=== PATIENT | male | born 1940 | race Caucasian/White ===

== ENCOUNTER 2017-05-11 10:17 | Outpatient (CLI) | payer MEDICARE, BC ==
[2017-05-11 12:05] LABS: #Lymphocytes 0.7 thou/uL (1.20-3.40); #Monocytes 0.3 thou/uL (0.11-0.59); #Neutrophils 3.7 thou/uL (1.40-6.50); %Basophils 0.2 % (0.0-1.0); %Lymphocytes 15.4 % (21.0-51.0); %Monocytes 6.6 % (0.0-10.0); Hematocrit 44.3 % (42.0-52.0); Mean Platelet Volume 5.5 fL (7.4-10.4); Red Blood Cell (RBC) Count 4.52 mill/uL (4.70-6.10); White Blood Cell (WBC) Count 4.8 thou/uL (4.8-10.8)
[2017-05-11 12:15] LABS: Hemoglobin A1c 6.1 % (4.0-6.0)
[2017-05-11 12:33] LABS: Anion Gap 14 mmol/L (10-20); BUN (Urea Nitrogen) 11 mg/dL (8.4-25.7); Calc. Creatinine Clearance 0 mL/min (70-130); Calcium 9.7 mg/dL (7.8-10.44); Carbon Dioxide 28 mmol/L (23-31); Chloride 100 mmol/L (98-107); Estimated GFR-MDRD Greater than 90
--- NOTE | 2017-05-12 06:15 | EKG ---
Test Reason : PREOP Blood Pressure : / mmHG Vent. Rate : 054 BPM Atrial Rate : 054 BPM P-R Int : 188 ms QRS Dur : 086 ms QT Int : 442 ms P-R-T Axes : 081 -02 024 degrees QTc Int : 419 ms Sinus bradycardia Otherwise normal ECG No previous ECGs available Confirmed by RENNY BRONSON ([id number]) on 05/12/2017 6:15:26 AM Referred By: LINDA Confirmed By:RENNY BRONSON
== END 2017-05-11 10:18 | disposition home or self-care (01) ==
LOC: LABBT 10:17
PROVIDERS: ATTEND Surgery
DX: Z01.812 Encounter for preprocedural laboratory examination (principal); C18.9 Malignant neoplasm of colon, unspecified
CPT/HCPCS: 80048; 83036; 85025; 93005; 93010

== ENCOUNTER 2017-06-21 08:40 | Outpatient (CLI) | payer MEDICARE, BC ==
--- NOTE | 2017-06-21 15:02 | PET ---
PET CT: HISTORY: 76-year-old male with lung cancer and colorectal cancer restaging. Patient is status post chemo/radi ation therapy in May 2016. TECHNIQUE: PET scanning with CT attenuation correction was performed from the base of the brain through the pro ximal thighs following the intravenous administration of 12 mCi F18-FDG in the right arm. Imaging wa s performed after an uptake interval of 49 minutes. COMPARISON: PET CT of 02/10/16. CORRELATION: CT chest, abdomen, and pelvis of 05/03/17. FINDINGS: There is hypermetabolic activity in the 3.2 x 2.0 cm right upper lobe posterior segment mass seen on the CT scan with a SUV of 6. Superior to this, within the consolidation in the posteromedial aspect of the right upper lobe, is a focal area of increased FDG localization with a SUV of 4.7. No hyperm etabolic pulmonary nodules are seen in the left lung. No jesus hypermetabolism is seen in the medias tinum, hilar regions, axilla, neck, or abdomen. No hypermetabolic liver, adrenal, or skeletal lesions are identified. There is physiologic activity in the GI and tracts, and the visualized portions of the brain. There is a 3.0 cm hypermetabolic pelvic mass arising from the sigmoid colon in the region of the blayne stomosis with a SUV of 11. There are FDG-containing perirectal lymph nodes with SUVs of 2.2 and 4.0, respectively. The CT scan used for attenuation correction demonstrates no evidence of pleural effusions or ascites . Marked prostatomegaly is again seen. IMPRESSION: 1. Hypermetabolic lesions in the right upper lung are suspicious for malignancy/metastatic disease. 2. Sigmoid colon mass is consistent with recurrence of malignancy with perirectal lymph jesus metas tasis. 3. Interval worsening has occurred since 02/10/16. POS: [facility]
== END 2017-06-21 08:41 | disposition home or self-care (01) ==
LOC: PET 08:40
PROVIDERS: ATTEND Internal Medicine Hematology & Oncology
DX: C34.91 Malignant neoplasm of unspecified part of right bronchus or lung (principal); C19 Malignant neoplasm of rectosigmoid junction; R91.1 Solitary pulmonary nodule
CPT/HCPCS: 78815; A9552

== ENCOUNTER 2017-06-22 09:45 | Day surgery (SDC) | payer MEDICARE, BC ==
[2017-06-21 13:32] VITALS: BMI 20.3
[2017-06-22] MEDS ORDERED: CEFAZOLIN/Water 2 GM/20 ML SYRINGE ONE (10:44)
[2017-06-22] MEDS ORDERED: Clindamycin/D5W 900 mg/50 ml Premix Bag ONE (11:17)
[2017-06-22] MEDS ORDERED: Levofloxacin 500 mg/D5W 100 ml Premix Bag ONE (11:18)
[2017-06-22] MEDS ORDERED: Bupivacaine/Epinephrine 0.25% 30 ML VIAL ONE (11:43)
[2017-06-22] MEDS ORDERED: Fentanyl 100 MCG/2 ML VIAL ONE (11:48)
[2017-06-22] MEDS ORDERED: Midazolam HCl 2 mg/2 ml Vial ONE (11:48)
[2017-06-22] MEDS ORDERED: Lidocaine 1% PF 5 ML VIAL ONE (12:12)
[2017-06-22] MEDS ORDERED: Propofol 200 MG/20 ML VIAL ONE (12:12)
--- NOTE | 2017-06-22 14:35 | RAD ---
PORTABLE CHEST: HISTORY: MediPort placement. FINDINGS: Heart size is within normal limits. Right-sided MediPort catheter is seen with catheter tip overlyin g the superior vena cava. There are no signs of pneumothorax on this film. Chronic lung changes are seen. IMPRESSION: Right-sided MediPort catheter with catheter tip over the superior vena cava. No signs of pneumothora x. POS: [facility]
--- NOTE | 2017-06-22 18:18 | OP ---
DATE OF SERVICE: 06/22/2017 PREOPERATIVE DIAGNOSIS: Colon cancer. POSTOPERATIVE DIAGNOSIS: Colon cancer. PROCEDURE: Tunneled central line with subcutaneous port (MediPort), CT injectable. SURGEON: Kostas Cruz M.D. ANESTHESIA: General. ESTIMATED BLOOD LOSS: Minimal. COMPLICATIONS: None. SPECIMEN: None. FINDINGS: Tip of the catheter is at the atriocaval junction. TECHNIQUE: The patient was taken to the operating room and placed supine on the table. After genera l anesthetic was obtained, bilateral neck and chest was shaved, prepped and draped in a sterile fashi on. Local anesthetic infiltrated over the right internal jugular vein. Intrajugular vein was cannul ated using a 22-gauge finder needle followed by a Seldinger needle. Wire was passed into the superio r vena cava under fluoro guidance. A small irene was made at the wire entrance site. A separate 3-cm incision was made in the right upper chest. Subcutaneous pocket made below the lower incision. Tub ing for the MediPort tunneled from the inferior to superior incision. Introducer sheath was placed o tr the wire into the superior vena cava under fluoro guidance. The dilator and wire were removed. The end of the catheter was sewn into the sheath as the sheath was peeled away. The tip of the patito ter was at the atriocaval junction. MediPort tubing was cut to fit the MediPort at the lower incisio n, connected to the MediPort. The MediPort was sewn to the chest wall in the subcutaneous pocket usi ng Prolene. The MediPort flushes and draws blood without difficulty. It was flushed with heparin fl ush. The wounds were all irrigated and closed using 3-0 Vicryl, 4-0 Monocryl, and Dermabond. The pa tient was en route to recovery in stable condition. All instrument counts, needle counts, and lap co unts were correct.
== END 2017-06-22 13:42 | disposition home or self-care (01) ==
LOC: SDC 09:45
PROVIDERS: ATTEND Surgery
PROC: 0JH63WZ Insertion of Totally Implantable Vascular Access Device into Chest Subcutaneous Tissue and Fascia, Percutaneous Approach (ICD-10-PCS; principal; 2017-06-22)
DX: C18.7 Malignant neoplasm of sigmoid colon (principal); C34.90 Malignant neoplasm of unspecified part of unspecified bronchus or lung; J45.909 Unspecified asthma, uncomplicated; I10 Essential (primary) hypertension; J44.9 Chronic obstructive pulmonary disease, unspecified; F41.9 Anxiety disorder, unspecified; Z79.899 Other long term (current) drug therapy; Z88.0 Allergy status to penicillin; Z90.49 Acquired absence of other specified parts of digestive tract; Z98.818 Other dental procedure status; Z96.1 Presence of intraocular lens; Z87.891 Personal history of nicotine dependence; Z85.46 Personal history of malignant neoplasm of prostate
CPT/HCPCS: 36561; 71010; C1788; J1642; J1956; J2001; J2250; J2704; J3010; J3490

== ENCOUNTER 2017-08-25 07:31 | Outpatient (CLI) | payer MEDICARE, BC ==
--- NOTE | 2017-08-25 13:33 | PET ---
RADIONUCLIDE PET SCAN WITH CT ATTENUATION CORRECTION AND SPECT IMAGING: HISTORY: Lung cancer. Colorectal cancer. Restaging. COMPARISON: 06/21/17. FINDINGS: Physiologic uptake of radiotracer is again demonstrated throughout the enteric system and along each urinary tract. The cavity mass at the medial aspect of the posterior medial aspect of the right uppe r lobe is again demonstrated. The maximum SUB associated with the lesion and adjacent atelectasis is now 3.9 (6.0 on the previous study). Surgical anastomosis of the colon at the sigmoid level is agai n demonstrated. No mass is now apparent. No hypermetabolic activity. No hypermetabolic pararectal lymph nodes are apparent. There is prominent calcification throughout the arterial structures. Prostate gland remains markedly enlarged. Degenerative changes of the lumbar spine are apparent. IMPRESSION: 1. Significant improvement, with decreased hypermetabolic activity associated with the right upper l obe mass and interval resolution of the abnormal uptake at the surgical anastomosis of the sigmoid co ruchi. No new hypermetabolic lesions are evident. 2. Atherosclerosis and other chronic-type findings are stable. POS: [facility]
== END 2017-08-25 07:32 | disposition home or self-care (01) ==
LOC: PET 07:31
PROVIDERS: ATTEND Internal Medicine Hematology & Oncology
DX: C34.81 Malignant neoplasm of overlapping sites of right bronchus and lung (principal); I70.90 Unspecified atherosclerosis
CPT/HCPCS: 78815; A9552

== ENCOUNTER 2017-12-15 13:48 | Outpatient (CLI) | payer MEDICARE, BC ==
--- NOTE | 2017-12-15 15:26 | PET ---
RADIONUCLIDE PET SCAN WITH CT ATTENUATION CORRECTION AND SPECT IMAGING: HISTORY: Lung cancer. Colon and prostate cancer. Restaging. COMPARISON: 08/25/17. FINDINGS: Physiologic uptake of radiotracer is again demonstrated throughout the enteric system and along each urinary tract. Necrotic mass at the posterior medial aspect of the right upper lobe again shows incre ased uptake, now with maximum SUV 6.7 (previously 3.9). Q.Clear max SUV equals 7.5. Subcarinal lymph node is not hypermetabolic. No new areas of hypermetabolic activity are apparent. Nondiagnostic CT attenuation correction images show prostate gland to be enlarged. There is calcifica tion throughout the arterial structures. Left abdominal ostomy is apparent. IMPRESSION: Interval increase in hypermetabolic activity associated with the cavitary right upper lobe mass. No n ew abnormalities are apparent. POS: [facility]
== END 2017-12-15 13:49 | disposition home or self-care (01) ==
LOC: PET 13:48
PROVIDERS: ATTEND Internal Medicine Hematology & Oncology
DX: C34.90 Malignant neoplasm of unspecified part of unspecified bronchus or lung (principal); C18.9 Malignant neoplasm of colon, unspecified
CPT/HCPCS: 78815; A9552

== ENCOUNTER 2018-01-04 08:26 | Outpatient (CLI) | payer MEDICARE, BC | END 2018-01-04 08:27 | disposition home or self-care (01) | LOC: BICRAD 08:26 | PROVIDERS: ATTEND Internal Medicine Hematology & Oncology | DX: R91.8 Other nonspecific abnormal finding of lung field (principal) | CPT/HCPCS: 71046 ==

== ENCOUNTER 2018-02-21 13:00 | Outpatient (CLI) | payer MEDICARE, BC ==
--- NOTE | 2018-02-21 15:41 | PET ---
PET CT SKULL TO MID THIGH: COMPARISON: PET CT 12/15/17. CLINICAL HISTORY: Lung cancer, restaging. There is appropriate biodistribution of radiotracer activity. FINDINGS: Redemonstration of hypermetabolic mass situated at the posteromedial right upper lobe. There remains hypermetabolic activity, with SUV up to 7.9, which is slightly higher, when comparing to prior exam. Spiculated lesion with internal air density and air bronchograms has increased in volume with axial diameter of approximately 4.3 cm compared to a similar location measuring 3.8 cm on prior exam. Kathy rounding reticulonodularity does indicate regional spread of malignancy within the right lung. No new hypermetabolic adenopathy. Incidental note of diffuse vascular disease including coronary art pradip calcium. There is granulomatous calcification. IMPRESSION: Slight size progression as well as increased SUV of the right upper lobe malignancy. No new hypermet abolic adenopathy. POS: [facility]
== END 2018-02-21 13:01 | disposition home or self-care (01) ==
LOC: PET 13:00
PROVIDERS: ATTEND Internal Medicine Hematology & Oncology
DX: C18.7 Malignant neoplasm of sigmoid colon (principal); C34.11 Malignant neoplasm of upper lobe, right bronchus or lung
CPT/HCPCS: 78815; A9552

== ENCOUNTER 2018-04-25 08:56 | Outpatient (CLI) | payer MEDICARE, BC ==
[2018-04-25] MEDS ORDERED: ISOVUE-370 76%-LOCM 1 ML ONE (09:04)
[2018-04-25 09:29] LABS: Estimated GFR-MDRD - POC Greater than 90
== END 2018-04-25 08:57 | disposition home or self-care (01) ==
LOC: BICCT 08:56
PROVIDERS: ATTEND Internal Medicine Hematology & Oncology
DX: C34.90 Malignant neoplasm of unspecified part of unspecified bronchus or lung (principal); R91.8 Other nonspecific abnormal finding of lung field
CPT/HCPCS: 71260; 82565

== ENCOUNTER 2018-07-04 11:23 | Outpatient (CLI) | payer MEDICARE, BC ==
--- NOTE | 2018-07-05 11:08 | PET ---
NUCLEAR MEDICINE FDG PET CT: (Positron Emission Tomography) DATE: 07/04/2018. HISTORY: A 77-year-old male with right upper lobe lung cancer, and colon cancer, C18.7 and C34.81. COMPARISON: 02/21/2018. TECHNIQUE: IV injection F-18 Fluorodeoxyglucose (FDG) dose: 12.3 mCi PET and attenuation-correction CT performed from skull base to proximal thighs. FINDINGS: SUV (standard uptake value) numbers given are maximum SUV's: The previously mentioned moderately large hypermetabolic pulmonary mass in the right upper lobe, broa dly abutting the posteromedial pleural surface, has become slightly larger. However, the regions of hypermetabolic activity have decreased when compared to the previous PET scan. The region of maximum QCLR SUV is 7.1 anteriorly. This is similar in value to that of the previous value of 7.5. However , now the areas outside of this region of maximum uptake have decreased in uptake compared to the aubrie or study. The apparent slight interval increase in overall volume of the lesion could represent exte nsion of the necrotic components of the tumor and/or reactive changes of lung adjacent to it. There are diffuse centrilobular emphysematous changes throughout both lungs. No hypermetabolic media stinal, hilar, or axillary lymphadenopathy. No pleural effusion. Again noted is the ostomy slightly to the left of midline in the upper abdomen. No evidence of hepatic metastases. No evidence of hyp ermetabolic lymphadenopathy in the mesenteric, cody hepatis, or retroperitoneal regions. In the upper portion of the pelvic cavity at the pelvic inlet, slightly to the left of midline, there is a new 2 x 2.5 cm soft tissue density mass, with suture line at the anastomosis site in the locati on of the sigmoid colon anastomosis. This is very hypermetabolic with QCLR SUV of 10.8. Enlarged pr ostate gland is again noted. IMPRESSION: 1. Highly suspicious for malignancy neoplastic tumor recurrence at the distal colonic anastomosis. 2. The right upper lobe pulmonary mass has similar maximum SUV at its anterior portion, but the rest of the tumor is less hypermetabolic, compared to the previous PET scan. AMEENA Acuna POS: [facility]
== END 2018-07-04 11:24 | disposition home or self-care (01) ==
LOC: PET 11:23
PROVIDERS: ATTEND Internal Medicine Hematology & Oncology
DX: C18.9 Malignant neoplasm of colon, unspecified (principal); C34.90 Malignant neoplasm of unspecified part of unspecified bronchus or lung; R91.8 Other nonspecific abnormal finding of lung field
CPT/HCPCS: 78815; A9552

== ENCOUNTER 2018-09-05 09:18 | Outpatient (CLI) | payer MEDICARE, BC ==
[2018-09-05 09:54] LABS: Estimated GFR-MDRD - POC Greater than 90
--- NOTE | 2018-09-05 12:12 | CT ---
CT ABDOMEN WITH CONTRAST: CT PELVIS WITH CONTRAST: COMPARISON: 02/17/2016 and 05/03/2017 CORRELATION: PET imaging from 07/04/[address] chest from 04/25/2018. TECHNIQUE: An abdomen and pelvis CT is performed with IV contrast. Enteric contrast is also administered. Yasmeen nal reformatted images are submitted for interpretation. FINDINGS: ABDOMEN: The lung bases are clear. The heart size is normal. No pericardial effusion. The descend ing thoracic aorta and abdominal aorta have atherosclerosis without evidence of aneurysm, dissection, or periaortic fat stranding. The gallbladder is unremarkable. The intrahepatic and extrahepatic portal vein is patent. The liver, spleen, and adrenal glands have appropriate enhancement. Symmetric enhancement of the kidneys. Bilaterally, no obstructive uropathy. No gastrohepatic, retrocrural, or periportal lymphadenopathy. No mesenteric mass, lymphadenopathy, free air, or free fluid. There is a small umbilical hernia cont aining mesenteric fat. There is a parastomal hernia in the left lower quadrant, containing mesenteri c fat. The gastric mucosa, duodenum, and multiple normal caliber small bowel loops are noted. The ileocecal junction is normal. Normal caliber appendix. The cecum, ascending colon, and transverse colon have an overall normal appearance. The descending colon appears to be decompressed. There is a blind-en ding pouch along the proximal aspect of the descending colon/distal aspect of the transverse colon, c ompatible with the patient's diverting colostomy. There is mucosal thickening at the anastomosis sit e, without evidence of adjacent lymphadenopathy or fat stranding. There is also mucosal prominence i nvolving the mid to distal portion of the rectum. PELVIS: Markedly enlarged prostate gland with mass effect upon the urinary bladder. No pelvic mass, lymphadenopathy, free air, or free fluid. No lytic or blastic lesions within the osseous structures. IMPRESSION: 1. Increased soft tissue density at the anastomosis site, compatible with area of hypometabolic acti vity noted on recent PET imaging. Currently, this lesion measures 2.6 x 3.1 cm (previously reported to be 2.7 x 2.0 cm). There is suggestion of interval increase in size. 2. Enlarged prostate gland. 3. Diverting colostomy in the left lower quadrant, as described above. POS: [facility]
[2018-09-05] MEDS ORDERED: ISOVUE-370 76%-LOCM 1 ML ONE (13:18)
== END 2018-09-05 09:19 | disposition home or self-care (01) ==
LOC: BICCT 09:18
PROVIDERS: ATTEND Internal Medicine Hematology & Oncology
DX: C18.9 Malignant neoplasm of colon, unspecified (principal); N40.0 Benign prostatic hyperplasia without lower urinary tract symptoms; Z93.3 Colostomy status
CPT/HCPCS: 74177; 82565; Q9966

== ENCOUNTER 2018-10-18 19:25 | Emergency (ER) | payer MEDICARE, BC ==
[~2018-10-18 19:25] MED LIST: ISOVUE-370 76%-LOCM 1 ML ONE
[2018-10-18 21:38] LABS: #Lymphocytes 0.6 thou/uL (1.20-3.40); #Monocytes 0.3 thou/uL (0.11-0.59); #Neutrophils 4.6 thou/uL (1.40-6.50); %Basophils 0.8 % (0.0-1.0); %Eosinophils 0.2 % (0.0-10.0); %Lymphocytes 10.6 % (21.0-51.0); %Monocytes 5.9 % (0.0-10.0); %Neutrophils 82.6 % (42.0-75.0); Hemoglobin 12.1 g/dL (14.0-18.0); Mean Corpuscular HGB CONC 32.9 g/dL (32.0-36.0); Mean Corpuscular Hemoglobin 31.6 pg (27.0-31.0); Platelet Count 265 thou/uL (130-400); RBC Distribution Width 11.5 % (11.5-14.5); Red Blood Cell (RBC) Count 3.84 mill/uL (4.70-6.10); White Blood Cell (WBC) Count 5.6 thou/uL (4.8-10.8)
--- NOTE | 2018-10-18 22:03 | RAD ---
PORTABLE AP CHEST: Date: 10/18/18 HISTORY: Shortness of breath and cough. COMPARISON: 01/04/18. FINDINGS: A right-sided MediPort catheter remains in place. The area of increased density in the right paramedi astinal location is again seen with spiculated margins and elevation of the right hilum is again pres ent. Pleural thickening right lung apex is again present. Mild increased interstitial densities at ea ch lung base, slightly greater at the left lung base on today's examination. Lungs are hyperexpanded. The cardiac silhouette and pulmonary vasculature are within normal limits. IMPRESSION: 1. Persistent mass right suprahilar region which is in a right paramediastinal location. There is el evation of the right hilar structures asymmetrically compared to the left. This is an overall stable finding. Pleural thickening right lung apex is also again stable. 2. Increased interstitial densities left lung base which could be related to infectious process. Fol low-up evaluation is recommended. POS: [facility]
[2018-10-18 22:46] LABS: BUN (Urea Nitrogen) 18 mg/dL (8.4-25.7); Calc. Creatinine Clearance 0 mL/min (70-130); Calcium 9.2 mg/dL (7.8-10.44); Carbon Dioxide 26 mmol/L (23-31); Chloride 103 mmol/L (98-107); Estimated GFR-MDRD Greater than 90; Glucose 141 mg/dL (83-110); Potassium 3.9 mmol/L (3.5-5.1); Sodium 139 mmol/L (136-145)
[2018-10-18 22:50] LABS: Anion Gap 14 mmol/L (10-20)
--- NOTE | 2018-10-18 23:31 | CT ---
CT ANGIOGRAM THORAX WITH IV CONTRAST AND 3D RECONSTRUCTIONS 10/18/18 HISTORY: Shortness of breath. History of colon and lung cancer as well as prostate cancer. COMPARISON: 04/25/18. FINDINGS: No filling defects are seen in the pulmonary arteries to suggest a pulmonary embolus. However, there is severe attenuation of right upper lobe pulmonary arteries due to the hypodense right paramediastin al mass posteromedially within the right upper lobe which measures 6.2 cm x 3.5 cm in greatest axial dimension with prior measurement of 6 cm x 3.6 cm and this is overall similar to the prior exam. Agai n, there is attenuation of the pulmonary arteries which extend through this mass as well as attenuati on of right upper lobe bronchi due to the mass. There is prominent spiculation associated with the pe riphery of the mass within the right upper lobe. Calcified granuloma in the right middle lobe is again seen. There has been interval development of patchy parenchymal densities at the left lung base in addition to reticulonodular opacities. Findings are likely related to infectious or inflammatory process. Amaury ling defects are seen in a few left lower lobe bronchi. Minimal reticulonodular densities are present in the lateral aspect of the right lower lobe, also representing an interval change from prior exam. Emphysematous changes are again seen within the lungs, greatest in the upper lobes. The thoracic aorta is normal in caliber without evidence of an aortic dissection. Vascular calcificat ions are seen in the coronary arteries and involving the thoracic aorta. A right internal jugular vein Mediport catheter remains in place. No enlarged mediastinal or hilar lymph nodes are appreciated. Partial visualization of colostomy within the left upper quadrant may potentially represent a double barrel colostomy. IMPRESSION: 1. Reticulonodular and parenchymal opacities in the left lower lobe worrisome for infectious or inflammatory process. Minimal reticulonodular densities are seen in the right lower lobe as well. 2. Filling defects in a few left lower lobe bronchi which could be related to mucous plugging. 3. Large spiculated right posterior paramediastinal mass also seen on prior exam and similar in size. This mass does attenuate right upper lobe bronchi and pulmonary arteries as these structures co urse through this mass. 4. Atherosclerotic vascular calcifications without evidence of an aortic dissection or aneurysm. 5. Trace pericardial effusion. 6. COPD. POS: [facility]
--- NOTE | 2018-10-21 10:38 | EKG ---
Test Reason : Blood Pressure : / mmHG Vent. Rate : 071 BPM Atrial Rate : 071 BPM P-R Int : 178 ms QRS Dur : 078 ms QT Int : 390 ms P-R-T Axes : 084 -23 057 degrees QTc Int : 423 ms Normal sinus rhythm Right atrial enlargement Borderline ECG Confirmed by RIA CORREA ([id number]), research editor BEKA SHAH ([id number]) on 10/21/2018 10:38:34 AM Referred By: Confirmed By:RIA CORREA
== END 2018-10-19 00:28 | disposition home or self-care (01) ==
LOC: ERS 19:25
DX: J18.9 Pneumonia, unspecified organism (principal); F41.9 Anxiety disorder, unspecified
CPT/HCPCS: 36415; 71045; 71275; 80048; 82550; 83880; 84484; 85025; 85379; 87040; 93005; 94640; 94760; J7620; Q9966

== ENCOUNTER 2018-10-22 09:46 | Inpatient (IN) | payer MEDICARE, BC ==
--- NOTE | 2018-10-22 10:35 | RAD ---
CHEST 2 VIEWS: Date: 10/22/18 HISTORY: Cough and shortness of breath. COMPARISON: 10/18/18. FINDINGS: Right central line and injection port. Poorly circumscribed mass in the medial aspect of the right up per lobe with some apical pleural thickening. Minimal patchy parenchymal change in the posterior aspe ct of the left lower lobe, evidence for some left lower lobe pneumonia and/or partial atelectasis. Mi nimal hyperinflation. IMPRESSION: Stable poorly circumscribed right medial upper lobe suprahilar mass with some apical pleural thickeni ng. Patchy parenchymal changes in the posterior left lower lobe. Stable hyperinflation. Continue shor t-term follow-up for complete clearing. POS: [facility]
[2018-10-22] MEDS ORDERED: methylPREDNISolone Sod Succ/PF 125 MG/2 ML VIAL ONE (11:08)
[2018-10-22 11:35] LABS: #Lymphocytes 0.9 thou/uL (1.20-3.40); #Monocytes 0.3 thou/uL (0.11-0.59); #Neutrophils 4.8 thou/uL (1.40-6.50); %Basophils 0.1 % (0.0-1.0); %Eosinophils 0.5 % (0.0-10.0); %Lymphocytes 14.5 % (21.0-51.0); %Monocytes 5.4 % (0.0-10.0); %Neutrophils 79.5 % (42.0-75.0); Hemoglobin 12.5 g/dL (14.0-18.0); Mean Corpuscular HGB CONC 32.8 g/dL (32.0-36.0); Mean Corpuscular Hemoglobin 31.4 pg (27.0-31.0); Mean Corpuscular Volume 95.7 fL (78.0-98.0); Mean Platelet Volume 6.2 fL (7.4-10.4); Platelet Count 319 thou/uL (130-400); RBC Distribution Width 11.4 % (11.5-14.5); Red Blood Cell (RBC) Count 3.98 mill/uL (4.70-6.10); White Blood Cell (WBC) Count 6.1 thou/uL (4.8-10.8)
[2018-10-22 12:04] LABS: ALT (SGPT) 25 U/L (8-55); AST (SGOT) 25 U/L (5-34); Albumin 3.8 g/dL (3.4-4.8); Alkaline Phosphatase 174 U/L (40-150); Anion Gap 14 mmol/L (10-20); BUN (Urea Nitrogen) 13 mg/dL (8.4-25.7); Bilirubin, Total 0.4 mg/dL (0.2-1.2); CK (CPK) 24 U/L (30-200); Calc. Creatinine Clearance 0 mL/min (70-130); Calcium 9.3 mg/dL (7.8-10.44); Carbon Dioxide 22 mmol/L (23-31); Chloride 106 mmol/L (98-107); Estimated GFR-MDRD Greater than 90; Globulin 2.7 g/dL (2.4-3.5); Glucose 117 mg/dL (83-110); Potassium 3.7 mmol/L (3.5-5.1); Protein, Total 6.5 g/dL (5.8-8.1); Sodium 138 mmol/L (136-145)
[2018-10-22 12:21] LABS: Bilirubin Negative (Negative); Blood, Urine Negative (Negative); Clarity CLEAR (Clear); Glucose, Urine (Dipstick) Negative (Negative); Leukocyte Negative (Negative); Nitrite Negative (Negative); Protein, Urine (Dipstick) Negative (Neg-Trace); Specific Gravity, Urine 1.033 (1.002-1.036); Urobilinogen 0.2 mg/dL (0.2-1.0)
[2018-10-22] MEDS ORDERED: Ondansetron PF 4 MG/2 ML Vial IVP PRN (14:56)
[2018-10-22] MEDS ORDERED: Acetaminophen 325 MG TAB PO PRN ×2 (14:56→16:56)
[2018-10-22] MEDS ORDERED: Ondansetron ODT 4 MG TAB SL PRN (14:56)
[2018-10-22 15:02] LABS: Troponin I Less than 0.010 ng/mL (< 0.028)
[2018-10-22] MEDS ORDERED: Albuterol Sulfate 2.5 mg/3 ml Neb NEB PRN (15:41)
[2018-10-22] MEDS: Sodium Chloride 0.9% 1,000 ML IV SCH (17:15)
[2018-10-22] MEDS ORDERED: Bacteriostatic Water 30 ML VIAL FS PRN (17:19)
[2018-10-22 17:55] LABS: Troponin I Less than 0.010 ng/mL (< 0.028)
[2018-10-22] MEDS: Valsartan 80 MG TAB PO SCH (20:12)
[2018-10-22] MEDS: Hydrochlorothiazide 25 MG TAB PO SCH (20:12)
[2018-10-22] MEDS: rOPINIRole HCl 0.5 MG TAB PO SCH (20:12)
[2018-10-22] MEDS: Senokot S 8.6-50 MG TAB PO SCH (20:13)
[2018-10-22] MEDS ORDERED: Hydrochlorothiazide 25 MG TAB PO SCH (21:00)
[2018-10-22] MEDS ORDERED: ALPRAZolam 0.5 MG TAB PO SCH (21:00)
[2018-10-22] MEDS ORDERED: Valsartan 80 MG TAB PO SCH (21:00)
[2018-10-22] MEDS: Montelukast Sodium 10 mg Tablet PO SCH (22:05)
[2018-10-22] MEDS: Famotidine 20 MG TAB PO SCH (22:05)
--- NOTE | 2018-10-22 23:51 | HP ---
PRIMARY CARE PHYSICIAN: Dr. Gill. CHIEF COMPLAINT: Dyspnea. HISTORY OF PRESENT ILLNESS: Mr. Rebollar is a 77-year-old male who presented to the emergency room for shortness of breath x4 days. Reports he was seen here on the , he was given a neb treatment, diagnosed with left lower pneumonia which was confirmed on a CTA scan, was given antibiotics and sent home on azithromycin. Reports that he has one left to take, but reports that he does not feel much better and reports that he was significantly short of breath this morning and he returned to the emergency room for further evaluation. He reports that he has a cough that is nonproductive. Reports that sputum will not come up with cough. Reports that he cannot take a deep breath. 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 Again, attenuation of the pulmonary arteries which extend through this mass as well as attenuation of the right upper lobe bronchi to the mass. Prominent spiculation associated with the periphery of the mass within the right upper lobe. Emphysematous changes are again seen within the lungs, greatest in the upper lobes. 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 Reports that he underwent 34 radiation treatments for his lungs prior to undergoing surgery for his colon adenocarcinoma. He reports that he was told that was gone and then had a colonoscopy in which they found an obstruction. He underwent a second surgery and on 05/18/2017, he had a laparoscopic diverting loop colostomy with Dr. Cruz and has a colostomy since that time. Reports that he did have some chemotherapy for the lung CA as he reports that Dr. Singh told him it was inoperable. He reports that they have been watching both tumors in his lung and what they suspect is some adenocarcinoma again in the colon. Reports that he has a CT scan scheduled for next month with a followup appointment with Dr. Singh. Currently, he denies any fever or chills. Reports that he does feel better after neb treatment, but it is not quite back to his baseline. Due to failure of outpatient therapy, the patient was admitted to the hospital for further management. He was given DuoNeb treatment in the emergency room and Solu-Medrol 125. Reports currently on exam that he does feel better, but reports that he felt like this on Tuesday, felt better on discharge from the emergency room, but then subsequently felt very short of breath for the last 3 days since discharge. PAST MEDICAL HISTORY: Includes small-cell lung cancer, prostate cancer, colon cancer, hypertension, restless legs syndrome, and COPD. PAST SURGICAL HISTORY: He has had a bronchoscopy, colostomy. PSYCHIATRIC HISTORY: Includes anxiety. SOCIAL HISTORY: The patient lives at home with his . He is a former tobacco user. Denies alcohol, drug use. REVIEW OF SYSTEMS: CONSTITUTIONAL: The patient denies fever or chills. EYES: Denies any eye pain or discharge. ENT: Denies any rhinorrhea or sore throat. CARDIOVASCULAR: Denies chest pain or palpitations. RESPIRATORY: Reports a dry cough. Reports shortness of breath. GI: Denies any abdominal pain. Denies nausea, vomiting, diarrhea, or constipation. : Denies any hematuria, dysuria. MUSCULOSKELETAL: Denies back pain, fall, injury, neck pain. SKIN: Denies any rash or skin changes. NEUROLOGIC: Denies any dizziness or headache. HEME/LYMPHATIC: Denies any abnormal blood clotting. PHYSICAL EXAMINATION: VITAL SIGNS: Blood pressure 151/70, pulse is 71, respirations are 18, temperature is 99.2, and pulse ox is 96% on room air. CONSTITUTIONAL: The patient appears nontoxic, is alert and oriented to person, place, and time, he is thin appearing, chronically ill appearing. HEENT: Head is atraumatic and normocephalic. The eyelids are equal to inspection. Pupils are equally round and reactive to light. ENT; mucous membranes are dry. Mouth exam is normal. NECK: No tenderness. Trachea is midline. RESPIRATORY: Decreased upper right lung wood. Decreased left lower lobe. Diffuse rhonchi. No findings of respiratory distress. CARDIOVASCULAR: Normal heart rate and rhythm. Heart sounds are normal. ABDOMEN: Nontender. No peritoneal signs. Bowel sounds are heard. BACK: Normal inspection. Normal range of motion. EXTREMITIES: Upper extremities; normal inspection. Normal range of motion. Radial pulses equal bilaterally. Lower extremities; inspection is normal. Normal range of motion. Pedal pulses are equal. Edema, trace edema noted bilaterally to lower extremities. NEUROLOGIC: The patient is alert and oriented to person, place, and time. Speech is normal. SKIN: Warm, dry, normal in color. PSYCHIATRIC: Has a normal affect. IMAGING STUDIES: EKG interpretation in the ER shows beats per minute 70, conduction is normal. Nonspecific ST changes. T-waves are normal, axis is left. PERTINENT LABORATORY DATA: Sodium 138, potassium 3.7, chloride is 106, carbon dioxide is 22, gap is 14, BUN is 13, creatinine is 0.65, estimated GFR is greater than 90, and glucose 117. Lactic acid 0.9, calcium 9.3, and bilirubin 0.4. AST and ALT are both 25, alkaline phosphatase is 174. CK is 24. Troponin x3 undetectable. Total protein 6.5, albumin 3.8, and globulin 2.7. White blood cell count is 6.1, hemoglobin is 12.5, hematocrit is 38.1, and platelet count is 319. Urine is negative. ASSESSMENT AND PLAN: 1. Left lower lobe pneumonia with continued dyspnea in the context of small cell tumor in the right upper lobe. The patient has almost one dose short of completing doses of his azithromycin. Reports he is not feeling any better. We will add Levaquin. Continue IV steroids. Add neb treatments q.6 hours. We will ask Pulmonology for further recommendations. We will continue the patient's outpatient medication, Singulair. 2. Hypertension. We will continue home medication. We will trend. 3. Depression/anxiety. We will continue home medication. 4. Gastrointestinal and deep venous thrombosis prophylaxis will be initiated. Plan was discussed with Dr. Hall, who agrees with current plan. Hospital course will be dependent on clinical findings. Job ID: [id number]
[2018-10-23 05:57] LABS: #Lymphocytes 0.8 thou/uL (1.20-3.40); #Monocytes 0.5 thou/uL (0.11-0.59); #Neutrophils 4.3 thou/uL (1.40-6.50); %Eosinophils 0.2 % (0.0-10.0); %Lymphocytes 14.7 % (21.0-51.0); %Monocytes 9.2 % (0.0-10.0); Hemoglobin 12.2 g/dL (14.0-18.0); Mean Corpuscular HGB CONC 32.7 g/dL (32.0-36.0); Mean Corpuscular Hemoglobin 31.1 pg (27.0-31.0); Mean Corpuscular Volume 95.1 fL (78.0-98.0); Mean Platelet Volume 6.2 fL (7.4-10.4); Platelet Count 315 thou/uL (130-400); RBC Distribution Width 11.3 % (11.5-14.5); Red Blood Cell (RBC) Count 3.91 mill/uL (4.70-6.10); White Blood Cell (WBC) Count 5.6 thou/uL (4.8-10.8)
[2018-10-23 06:25] LABS: ALT (SGPT) 22 U/L (8-55); AST (SGOT) 22 U/L (5-34); Albumin 3.8 g/dL (3.4-4.8); Alkaline Phosphatase 170 U/L (40-150); Anion Gap 12 mmol/L (10-20); BUN (Urea Nitrogen) 11 mg/dL (8.4-25.7); Bilirubin, Total 0.3 mg/dL (0.2-1.2); Calc. Creatinine Clearance 81 mL/min (70-130); Calcium 9.4 mg/dL (7.8-10.44); Carbon Dioxide 24 mmol/L (23-31); Chloride 102 mmol/L (98-107); Estimated GFR-MDRD Greater than 90; Globulin 2.7 g/dL (2.4-3.5); Glucose 120 mg/dL (83-110); Potassium 4.2 mmol/L (3.5-5.1); Protein, Total 6.5 g/dL (5.8-8.1); Sodium 134 mmol/L (136-145)
[2018-10-23] MEDS: Sodium Chloride 0.9% 1,000 ML IV SCH ×2 (06:44→23:08)
--- NOTE | 2018-10-23 08:55 | RAD ---
CHEST 2 VIEWS: COMPARISON: 10/22/2018. HISTORY: Cough. Shortness of breath. Pneumonia. FINDINGS: Stable right-sided MediPort catheter. Stable opacification of the medial right upper lobe. Normal c ardiac silhouette. The pulmonary vessels and hilum are normal. Costophrenic angles are clear. Hype rinflation with chronic changes. No pneumothorax or osseous abnormalities. IMPRESSION: No significant interval change. POS: [facility]
[2018-10-23] MEDS ORDERED: Prevnar 13-Val Conj/PF 0.5 ML SYRINGE IM ONE (09:00)
[2018-10-23] MEDS ORDERED: ALPRAZolam 0.5 MG TAB PO SCH (09:00)
--- NOTE | 2018-10-23 10:34 | CON ---
DATE OF CONSULTATION: 10/23/2018 TIME SPENT: This encompassed 70 minutes of time, of that time, greater than 50% spent with the patient and/or the patient's unit in the hospital. HISTORY OF PRESENT ILLNESS: I have been consulted to see Mr. Rebollar, who is a 77-year-old male and is suspected to have pneumonia. He was seen as an outpatient about one week ago and was prescribed Zithromax. Specifically, the patient tells me he just has not been feeling well. He has had no appetite. He has had very little in the way of cough or congestion. Of note, he has a recent CT of the abdomen, which showed increased activity of his colon cancer at the site of his distal anastomosis. This was also confirmed by PET scan done back in June. He reports difficulty with appetite and early satiety. PAST MEDICAL HISTORY: 1. 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 2. Colon cancer. 3. Prostate cancer. 4. Hypertension. 5. Restless legs syndrome. 6. Chronic obstructive pulmonary disease. PAST SURGICAL HISTORY: 1. Bronchoscopy. 2. Colonoscopy. 3. Colostomy. SOCIAL HISTORY: Lives at home with his . Quit smoking many years ago. Does not consume alcohol. He likes working [place] his [place]. REVIEW OF SYSTEMS: Early satiety, some weight loss. No fever or chills. Mild cough. No hemoptysis, melena, hematochezia, hematuria, or dysuria. MEDICATIONS: Prior to admission; 1. Valsartan/hydrochlorothiazide. 2. Protonix. 3. Glucosamine chondroitin complex. 4. Multivitamin. 5. Ensure Plus. 6. Iron. 7. Ropinirole. 8. Singulair. 9. Xanax. 10. Zoloft. 11. Avodart. PHYSICAL EXAMINATION: VITAL SIGNS: Temperature 97.4, pulse 77, respirations 19, O2 saturation 92%, and blood pressure 137/63. GENERAL: The patient is awake and alert, and in no distress. He is sitting up in chair. HEENT: Pupils are reactive. Sclerae icteric. Oropharynx clear. NECK: No adenopathy, JVD, or bruits. LUNGS: Fairly clear bilaterally. CARDIAC: S1 and S2 regular without murmur. ABDOMEN: Colostomy noted. EXTREMITIES: No clubbing, cyanosis, or edema. LABORATORY DATA: Sodium 134, potassium 4.2, chloride 102, CO2 of 24, BUN 11, creatinine 0.7, glucose 120, alkaline phosphatase 170. White blood cell count 5.6, hematocrit 37.2, and platelet count 315. DIAGNOSTIC DATA: I reviewed his chest x-ray, which is nonspecific. His recent CT scan showed the right upper lobe small cell cancer, which is not increased in size. He also has some left lower lobe interstitial findings that were suspected to be pneumonia. ASSESSMENT: 1. Possibility of left lower lobe pneumonia, although his symptoms are very minimal from Pulmonary standpoint. 2. Small-cell cancer of the lung. 3. Adenocarcinoma of the colon with increased uptake and tumor appearance of distal anastomotic site. 4. History of hypertension. RECOMMENDATIONS: I am not sure whether or not we are truly dealing with pneumonia. I think Levaquin coverage is sensible. I do suspect that we may be dealing with recurrent cancer and systemic symptoms from that. He may need Oncology input for that. He currently will continue to receive steroids and breathing treatments. I will notify Dr. Knox about the patient's hospitalization. Job ID: [id number]
[2018-10-23] MEDS: Senokot S 8.6-50 MG TAB PO SCH ×2 (11:06→20:05)
[2018-10-23] MEDS: Dutasteride 0.5 MG CAP PO SCH ×2 (11:07→11:08)
[2018-10-23] MEDS: Enoxaparin Sodium 40 MG/0.4 ML SYRINGE SC SCH (11:08)
[2018-10-23] MEDS: methylPREDNISolone Sod Succ 40 MG VIAL IVP SCH (11:08)
[2018-10-23] MEDS: Famotidine 20 MG TAB PO SCH ×2 (11:09→20:05)
--- NOTE | 2018-10-23 11:29 | PDOC.PN ---
- Subjective Encounter Start Date: 10/23/18 Encounter Start Time: 11:06 Subjective: Patient resting comfortable and in no distress. No CP/SOB at present. -: States he normally takes 2 tablets of Xanax daily at home. Has been getting -: less here but isnt sure of the dose he takes. Feels anxious at times and reports feeling jittery. He feels himself start to panic and hyperventilate. Has palpitations. Also suffers from restless leg syndrome which is well controlled with medications. Able to settle down with deep breaths but Xanax is most helpful. Denies any pain. Has remained afebrile. Reports completing treatment for small cell lung cancer approximately 6-8 months ago. Was seen by Dr. Singh every 1-2 months and next appointment is due in November 2018. Denies any chest pain. No sob at present. Denies any cough or hemoptysis. No n/v. No abdominal pain. Denies any urinary symptoms. No headaches or dizziness. - Objective Resuscitation Status - Order Detail: 10/22/18 16:56 Resuscitation Status Routine Co-Sign Provider: Resuscitation Status: FULL: Full Resuscitation Discussed with: Patient Additional comments: Reports his , Indigo, is his surrogate decision maker Vital Signs & Weight: Vital Signs (12 hours) Temp Pulse Resp BP Pulse Ox 10/23/18 08:30 92 L 10/23/18 07:29 97.4 F L 77 19 137/63 92 L 10/23/18 06:44 88 20 90 L 10/23/18 04:13 97.9 F 72 16 149/67 H 93 L 10/23/18 00:47 93 L 10/22/18 23:50 97.7 F 77 20 142/66 H 96 Weight Weight 140 lb 11.2 oz I&O: 10/22/18 10/23/18 10/24/18 06:59 06:59 06:59 Intake Total 1659 Output Total 1225 Balance 434 Result Diagrams: 10/23/18 05:08 10/23/18 05:08 Phys Exam - Physical Examination Constitutional: NAD HEENT: PERRLA, sclera anicteric, oral pharynx no lesions Neck: supple, full ROM Respiratory: no wheezing, no rales, no rhonchi, clear to auscultation bilateral Cardiovascular: RRR Gastrointestinal: soft, non-tender, no distention, positive bowel sounds Musculoskeletal: no edema, pulses present Neurological: normal sensation, moves all 4 limbs Psychiatric: normal affect, A&O x 3 Skin: no rash Dx/Plan (1) Colon cancer Code(s): C18.9 - MALIGNANT NEOPLASM OF COLON, UNSPECIFIED Status: Acute (2) SOB (shortness of breath) Code(s): R06.02 - SHORTNESS OF BREATH Status: Acute (3) COPD (chronic obstructive pulmonary disease) Status: Acute (4) Hypertension Code(s): I10 - ESSENTIAL (PRIMARY) HYPERTENSION Status: Acute (5) Mass of upper lobe of right lung Code(s): R91.8 - OTHER NONSPECIFIC ABNORMAL FINDING OF LUNG FIELD Status: Acute - Plan cont current plan of care, continue antibiotics Seen by Dr. Catherine, who felt symptoms likely cancer related than pneumonia -: However agreed with Levaquin coverage. -: Oncology consult advised and requested. -: CTA Chest on 10/18/18 negative for PEs. -: Xanax 0.5 mg BID requested for Anxiety which triggers episodes of SOB. Continue to monitor O2 sat. Continue nebs and steroids.
[2018-10-23 13:34] VITALS: BMI 19.1
--- NOTE | 2018-10-23 17:28 | CON ---
DATE OF CONSULTATION: REASON FOR CONSULT: Lung cancer. HISTORY OF PRESENT ILLNESS: Mr. Rebollar is a pleasant 77-year-old gentleman with past medical history of stage 4 adenocarcinoma of the colon, limited stage small cell lung cancer, and prostate cancer. He is followed in our clinic by Dr. Singh. He presented to the emergency room approximately 1 week ago with shortness of breath. He had a CT angio of his chest, which showed opacities in the left lower lobe worrisome for pneumonia. He has a known large spiculated right lung mass. It was similar in size on the CT angio versus the scan from August of 2018. He was given Z-Marino in the ER on October 18. He did not improve over the next week, so presented again to the emergency room with shortness of breath. Chest x-ray again show patchy parenchymal changes in the posterior left lower lobe. He had a dry cough and shortness of breath. He was started on steroids and given Levaquin. He does feel better today. PAST MEDICAL HISTORY: 1. Stage 4 adenocarcinoma of the colon, limited stage small cell lung cancer in 2016. 2. Hypertension. 3. COPD. 4. Anxiety. 5. GERD. PAST SURGICAL HISTORY: Hemicolectomy in 2016 and lung biopsy. ALLERGIES: TO PENICILLIN. HOME MEDICATIONS: 1. Xanax 0.5 mg daily. 2. Avodart daily. 3. Singulair daily. 4. Protonix 40 mg daily. 5. Ropinirole daily. 6. Zoloft daily. 7. Valsartan/hydrochlorothiazide daily. FAMILY HISTORY: Noncontributory. SOCIAL HISTORY: , has 2 children. No alcohol, tobacco, or illicit drug use. REVIEW OF SYSTEMS: A 10-point review of systems is negative except what is noted in HPI. PHYSICAL EXAMINATION: VITAL SIGNS: Temperature is 98.4, pulse is 74, respiratory rate is 16, BP is 148/67, and he is 94% on room air. GENERAL: This is a well-developed, well-nourished male, in no acute distress. HEENT: Normocephalic and atraumatic. Pupils are equal and reactive to light. NECK: Supple. CVS: Regular rate and rhythm. LUNGS: Diminished on the left side with wheezing. ABDOMEN: Soft and nontender. Bowel sounds are positive. EXTREMITIES: No clubbing, cyanosis, or edema. SKIN: No rash. HEMATOLOGIC: No petechiae or purpura. NEUROLOGIC: Nonfocal. PSYCH: The patient is alert, oriented, and appropriate. PERTINENT LABS AND X-RAYS: Current WBCs are 5.6, hemoglobin 12.2, hematocrit 37.2, platelet count 315,000, 76% neutrophils, and 14% lymphocytes. Sodium is 134, potassium 4.2, chloride 102, CO2 is 22, BUN is 11, creatinine 0.71, lactic acid 0.9, calcium 9.4, total bilirubin 0.3, AST is 22, ALT is 22, and alkaline phosphatase is 170. Troponin is negative. Serum total protein 6.5, albumin 3.8, and globulin 2.7. Urine is negative. Radiology per HPI. ASSESSMENT: 1. Limited stage small cell lung cancer in remission since 2015. 2. Stage 4 adenocarcinoma of the colon in April 2016. 3. Possible left lower lobe pneumonia. DISCUSSION: The patient's lung mass has been stable on scans including his most recent CT of the angio. He also likely has recurrence of his disease in his abdomen, but has been symptomatic. The patient has been on a treatment holiday. The plan is to re-stage his chest, abdomen, and pelvis in November and to decide if further treatment is needed at this time. I would treat his possible infectious process and he can follow up with us in the outpatient setting. Thanks for the consult. Job ID: [id number]
[2018-10-23] MEDS: Hydrochlorothiazide 25 MG TAB PO SCH (20:03)
[2018-10-23] MEDS: Montelukast Sodium 10 mg Tablet PO SCH (20:04)
[2018-10-23] MEDS: rOPINIRole HCl 0.5 MG TAB PO SCH (20:05)
[2018-10-23] MEDS: Valsartan 80 MG TAB PO SCH (20:05)
[2018-10-23] MEDS: ALPRAZolam 0.5 MG TAB PO SCH (20:07)
[2018-10-24 05:01] LABS: #Lymphocytes 0.8 thou/uL (1.20-3.40); #Monocytes 0.7 thou/uL (0.11-0.59); #Neutrophils 4.4 thou/uL (1.40-6.50); %Basophils 0.2 % (0.0-1.0); %Eosinophils 0.2 % (0.0-10.0); %Lymphocytes 13.8 % (21.0-51.0); %Neutrophils 74.9 % (42.0-75.0); Hemoglobin 12.1 g/dL (14.0-18.0); Mean Corpuscular HGB CONC 33.1 g/dL (32.0-36.0); Mean Corpuscular Hemoglobin 31.6 pg (27.0-31.0); Mean Corpuscular Volume 95.3 fL (78.0-98.0); Mean Platelet Volume 6.2 fL (7.4-10.4); Platelet Count 355 thou/uL (130-400); RBC Distribution Width 11.4 % (11.5-14.5); Red Blood Cell (RBC) Count 3.82 mill/uL (4.70-6.10); White Blood Cell (WBC) Count 5.9 thou/uL (4.8-10.8)
[2018-10-24 05:21] LABS: ALT (SGPT) 24 U/L (8-55); AST (SGOT) 24 U/L (5-34); Alkaline Phosphatase 158 U/L (40-150); Anion Gap 15 mmol/L (10-20); BUN (Urea Nitrogen) 13 mg/dL (8.4-25.7); Bilirubin, Total 0.4 mg/dL (0.2-1.2); Calc. Creatinine Clearance 75 mL/min (70-130); Calcium 9.6 mg/dL (7.8-10.44); Carbon Dioxide 24 mmol/L (23-31); Chloride 101 mmol/L (98-107); Estimated GFR-MDRD Greater than 90; Globulin 2.7 g/dL (2.4-3.5); Glucose 114 mg/dL (83-110); Potassium 3.4 mmol/L (3.5-5.1); Protein, Total 6.7 g/dL (5.8-8.1); Sodium 137 mmol/L (136-145)
[2018-10-24 08:11] VITALS: BP 158/68; TEMP 97.7
[2018-10-24] MEDS: ALPRAZolam 0.5 MG TAB PO SCH (08:51)
[2018-10-24] MEDS: Senokot S 8.6-50 MG TAB PO SCH (08:51)
[2018-10-24] MEDS: Famotidine 20 MG TAB PO SCH (08:51)
[2018-10-24] MEDS: Enoxaparin Sodium 40 MG/0.4 ML SYRINGE SC SCH (08:59)
[2018-10-24] MEDS: methylPREDNISolone Sod Succ 40 MG VIAL IVP SCH (08:59)
--- NOTE | 2018-10-24 10:02 | PRG ---
DATE OF SERVICE: 10/24/2018 SUBJECTIVE: Efraín Rebollar, this morning, is feeling better. He came to the hospital because he felt he had left-sided pneumonia. X-ray did not show an obvious pneumonia. This morning, he said he is feeling better. Denies any pain or discomfort. OBJECTIVE: VITAL SIGNS: Sats are 99% on room air, temperature 97, pulse 73, respiratory rate 20, and blood pressure is 150/68. CHEST: Decreased breath sounds. No wheezing. CARDIAC: Normal S1 and S2. No gallop. ABDOMEN: No masses. LABORATORY DATA: White count 5000, H and H are 12 and 36. Lytes are normal. IMPRESSION: 1. Possibly bronchitis pneumonia. 2. Small cell cancer. 3. Colon cancer. PLAN: He is eager to go home on present treatment. He is to follow up with Dr. Knox on an outpatient basis. Job ID: [id number]
--- NOTE | 2018-10-25 07:13 | DIS ---
DATE OF ADMISSION: 10/22/2018 DATE OF DISCHARGE: 10/24/2018 CHIEF COMPLAINT: Shortness of breath. DISCHARGE DIAGNOSES: 1. Left lower lung pneumonia. 2. Small cell lung cancer. 3. Colon cancer. 4. Hypertension. 5. Anxiety. 6. Chronic obstructive pulmonary disease. 7. Gastroesophageal reflux disease. CONSULTING PHYSICIANS: 1. Dr. Catherine, Pulmonology. 2. Dr. Valdez, Oncology. HOSPITAL COURSE: Mr. Rebollar is a very pleasant 77-year-old man, who presented with shortness of breath. He underwent investigations in the ED including a chest x-ray, which demonstrated no acute changes. He is known to have small cell lung cancer; therefore, Pulmonology was consulted as it was felt his difficulty breathing was associated with his cancer. He did undergo a CT angiogram of the chest, which showed reticulonodular and parenchymal opacities in the left lower lobe, worrisome for infectious versus inflammatory process. Similar changes were seen in the right lower lobe. There are few filling defects in the left lower lobe bronchi, felt to be related to mucous plugging. The patient was noted to have a large spiculated right posterior paramediastinal mass that had been seen on previous studies and with no significant change in size. He did not seem to have any definite evidence of pulmonary embolism. There was trace pericardial effusion seen as well as changes consistent with his history of COPD. He was evaluated by Dr. Catherine, who felt his symptoms were more likely associated with his cancer rather than any underlying pneumonia or infectious pulmonary process; however, he did agree with antibiotic coverage. He had been started on Levaquin, which he continued throughout his hospital stay as well as steroids. The patient's initial saturations were in the 90% to 93% range, and on day of discharge, it has improved to 99% on room air. The patient has symptomatically improved significantly on current treatment. An oncology consult was placed and he was evaluated with no further recommendations. The patient is scheduled for a restaging imaging in November 2018 and was advised to keep current appointment with no indication to move his imaging nor followup sooner. The patient continued to do well during his hospital stay and tolerating oral intake and without any other complaints. REVIEW OF SYSTEMS: The patient denies having any chest pain, palpitations, or shortness of breath. His symptoms have fully resolved. He denies having any headaches or dizziness. No cough or hemoptysis. Denies having any abdominal pain or cramping. Tolerating oral intake. No constipation, diarrhea, melena, or bright red blood per rectum. No urinary symptoms. He has been afebrile. No night sweats. All other review of systems are negative. PHYSICAL EXAMINATION: GENERAL: The patient appears well developed, well nourished, and is in no acute distress. He was found sat upright in a chair. He appears comfortable. VITAL SIGNS: Temperature 97.7, pulse 73, respirations 20, O2 saturation 99% on room air, and blood pressure 158/68. HEENT: Normocephalic and atraumatic. Pupils are equal, round, and reactive to light. Sclerae are without icterus. Oropharynx is clear. NECK: Supple without lymphadenopathy. LUNGS: Clear to auscultation bilaterally without any wheezes, rales, or rhonchi. CARDIAC: Regular rate and rhythm without audible murmurs, rubs, or gallops. ABDOMEN: Soft, nontender, and nondistended. Normoactive bowel sounds present. EXTREMITIES: No clubbing, cyanosis, or edema. NEUROLOGIC: Alert and oriented x3. SKIN: Without rash or jaundice. LABORATORY DATA: White blood count 5.9, hemoglobin 12.1, hematocrit 36.4, and platelets 355. Sodium 137, potassium 3.4, chloride 101, BUN 13, creatinine 0.77, GFR greater than 90, and glucose 114. Lactic acid on initial presentation 0.9. LFTs unremarkable. Alkaline phosphatase 158. Troponins on initial presentation were negative x3. Urinalysis unremarkable. IMAGING DATA: As mentioned above in hospital course. DISCHARGE MEDICATIONS: The patient was advised to resume his regular home medications. 1. He was given a prescription for Levaquin 750 mg p.o. daily x7 days. 2. He was given a new prescription for prednisone 40 mg p.o. daily x5 days. CONDITION: Stable. DIET: Heart healthy. ACTIVITY: As tolerated. FOLLOWUP: 1. The patient will follow up with his oncologist, Dr. Singh, in November with restaging studies as scheduled. 2. The patient will follow up with Dr. Knox, his regular welt drawer. 3. The patient advised to follow up with his primary care physician within 1 week to ensure he continues to be doing well and for repeat laboratory studies including potassium which was slightly decreased today, but normal throughout his stay. DISPOSITION: The patient cleared for discharge home today on October 24, 2017. The patient's case was discussed with Dr. Wooten, who agrees with the plan of care as described above. Job ID: [id number]
== END 2018-10-24 10:40 | disposition home or self-care (01) | DRG 194 ==
LOC: ERS 09:46 → 2SW 14:01 → OBSVTOIN 17:14
PROVIDERS: ADMIT Family Medicine; ATTEND Family Medicine
DX: J18.1 Lobar pneumonia, unspecified organism (principal); C34.90 Malignant neoplasm of unspecified part of unspecified bronchus or lung; C18.9 Malignant neoplasm of colon, unspecified; J44.9 Chronic obstructive pulmonary disease, unspecified; I10 Essential (primary) hypertension; G25.81 Restless legs syndrome; F32.9 Major depressive disorder, single episode, unspecified; F41.9 Anxiety disorder, unspecified; K21.9 Gastro-esophageal reflux disease without esophagitis; Z85.038 Personal history of other malignant neoplasm of large intestine; Z92.3 Personal history of irradiation; Z85.46 Personal history of malignant neoplasm of prostate; Z92.21 Personal history of antineoplastic chemotherapy; Z87.891 Personal history of nicotine dependence; Z93.3 Colostomy status
CPT/HCPCS: 36415; 71045; 71046; 71275; 80048; 80053; 81003; 82550; 83605; 83880; 84484; 85025; 85379; 87040; 93005; 94640; 94760; 96361; 96374; J1642; J1650; J2920; J2930; J7620; Q9966

== ENCOUNTER 2018-11-15 09:31 | Outpatient (CLI) | payer MEDICARE, BC ==
--- NOTE | 2018-11-15 10:23 | CT ---
EXAM: CT Chest Abd Pelvis W Con PROVIDED CLINICAL HISTORY: Colon cancer COMPARISON: CT angiogram chest 10/18/2018 CT abdomen and pelvis 08/28/2018 FINDINGS: The heart, pericardium and great vessels demonstrate a stable CT appearance. Vascular calcification i ncluding coronary calcium is redemonstrated. Irregular heterogeneously hypodense mass involving the posterior medial aspect of the right lung apex is redemonstrated. This measures approximately 6.8 x 3.8 cm in greatest transverse dimensions (as co mpared to 6.2 x 3.5 cm on the 10/18/2018 study). There is persistent but improving reticulonodular opa city involving the basilar aspects of the left lower lobe. Emphysematous changes are redemonstrated. No pleural fluid or pneumothorax apparent. Attenuation of t he apical right upper lobe bronchus is redemonstrated. The airway appears otherwise patent and of nor mal caliber. The liver, spleen, pancreas, kidneys and adrenal glands demonstrate an unremarkable CT appearance. There is no bowel dilatation, inflammatory fat stranding, free fluid or lymph node enlargement appare nt. Changes of colostomy in the left upper quadrant are redemonstrated. Soft tissue mass in the regio n of the rectocolonic anastomosis is redemonstrated, measuring approximately 3.1 x 3.1 cm in greatest transverse dimensions (as compared with 2.6 x 3.1 cm on the 09/05/2018 study). Marked prostate enlargement is redemonstrated. The osseous structures demonstrate no concerning osteo blastic or osteolytic lesions. IMPRESSION: 1. Interval increase in size of spiculated right upper lobe mass. 2. Equivocal interval increase in size of rectocolonic anastomosis mass. 3. Interval improvement in reticulonodular opacity involving the left lower lobe suggesting resolving pneumonia.
== END 2018-11-15 09:32 | disposition home or self-care (01) ==
LOC: BICCT 09:31
PROVIDERS: ATTEND Internal Medicine Hematology & Oncology
DX: C34.81 Malignant neoplasm of overlapping sites of right bronchus and lung (principal); C18.7 Malignant neoplasm of sigmoid colon; E61.1 Iron deficiency; R91.8 Other nonspecific abnormal finding of lung field
CPT/HCPCS: 71260; 74177

== ENCOUNTER 2019-01-16 09:25 | Outpatient (CLI) | payer MEDICARE, BC ==
[2019-01-16 10:21] LABS: Estimated GFR-MDRD - POC Greater than 90
--- NOTE | 2019-01-16 11:25 | CT ---
CT OF CHEST AND ABDOMEN AND PELVIS PERFORMED WITH IV CONTRAST ENHANCEMENT: Date: 01/16/19 HISTORY: Patient with history of right lung cancer and malignant neoplasm of sigmoid colon. Follow-up examinat ion. COMPARISON: 11/15/17 study. FINDINGS: Severe COPD changes are seen with prominent air trapping. The left lower lobe reticulonodular opaciti es have almost completely resolved since the prior examination. The right upper lobe paravertebral soft tissue mass is unchanged in size, measuring at the same level as the previous study. Measurements of 3.4 x 7.1 cm are obtained as compared to 3.9 x 6.8 cm. There appears to be a fairly prominent necrotic component to these soft tissue changes, particularly along the inferior aspect. No pleural effusions are identified. No significant mediastinal or hilar lymphad enopathy is appreciated. Coronal artery calcifications are noted. Thyroid gland appears unremarkable. No axillary adenopathy. CT of abdomen was performed with contrast enhancement. The liver and spleen show no focal abnormaliti es. Pancreas and gallbladder regions are unremarkable. Right and left adrenal glands, and right and left kidneys are normal in size. No significant periaort ic or mesenteric adenopathy. Left upper quadrant colostomy is again demonstrated. This appears to be a double barrel colostomy. CT of pelvis was performed with contrast enhancement. The soft tissue density associated with the rec tosigmoid anastomosis appears unchanged with soft tissue mass measuring 3.2 cm in diameter, which is a stable finding. Once again, the prostate is noted to be markedly enlarged. Review of osseous structures show no lytic or blastic bony changes. IMPRESSION: 1. Stable appearance to the right upper lobe paravertebral soft tissue mass and the soft tissue dens ity seen near the rectosigmoid anastomosis. 2. Interval clearing of the left lower lobe reticulonodular opacities. POS: T[facility]
== END 2019-01-16 09:26 | disposition home or self-care (01) ==
LOC: BICCT 09:25
PROVIDERS: ATTEND Internal Medicine Hematology & Oncology
DX: C34.81 Malignant neoplasm of overlapping sites of right bronchus and lung (principal); C18.7 Malignant neoplasm of sigmoid colon; K63.89 Other specified diseases of intestine; R91.8 Other nonspecific abnormal finding of lung field; R93.5 Abnormal findings on diagnostic imaging of other abdominal regions, including retroperitoneum
CPT/HCPCS: 71260; 74177; 82565

== ENCOUNTER 2019-03-28 09:20 | Outpatient (CLI) | payer MEDICARE, BC ==
[2019-03-28 09:52] LABS: Estimated GFR-MDRD - POC Greater than 90
--- NOTE | 2019-03-28 11:53 | CT ---
EXAM: Chest, Abdomen and Pelvic CT scan with contrast: HISTORY: Right lung malignancy. Sigmoid colon cancer. COMPARISON: 01/16/2019. FINDINGS: Redemonstration of necrotic, lobular right upper lobe mass located posterior medially, with AP diamet er at 7.5 cm, and transverse diameter at 3.7 cm. This is slightly increased in volume when comparing to similar location on the prior scan. There is adjacent interstitial opacity with minute n odularity of the right lung. No pleural effusion. No pneumothorax. No adenopathy. Scattered vascular disease including coronary artery calcium. There is a right venous chest port. Liver: Size progression of a metastatic lesion involving the hepatic dome, 1.7 cm. Gallbladder:Unremarkable. Pancreas:Unremarkable Spleen:Granulomatous calcification. Adrenal glands:Unremarkable. Kidneys:No renal calculus or acute obstruction.No solid or cystic mass. Bowel: Redemonstration of soft tissue mass of the pelvis, to left of midline adjacent to the unopacif ied sigmoid colon with internal, stippled hyperdensity. Where previously measured at 3.2 cm, this again measures 3.2 cm, stable. Urinary Bladder: The urinary bladder is unremarkable. There is marked enlargement of the prostate gland, similar appearing. Adenopathy:No adenopathy within the abdomen or pelvis. Free Air: No free air. Ascites: No ascites. Osseous structures: No acute osseous abnormalities. IMPRESSION: 1. Interval size increase of right upper lobe necrotic malignancy. 2. Progression of hepatic metastatic disease. 3. Stable size soft tissue mass of the pelvis, adjacent to the sigmoid colon. Transcribed Date/Time: 03/28/2019 12:12 PM
[2019-03-28] MEDS ORDERED: ISOVUE-370 76%-LOCM 1 ML ONE (13:55)
== END 2019-03-28 09:21 | disposition home or self-care (01) ==
LOC: BICCT 09:20
PROVIDERS: ATTEND Internal Medicine Hematology & Oncology
DX: C18.7 Malignant neoplasm of sigmoid colon (principal); C34.81 Malignant neoplasm of overlapping sites of right bronchus and lung; E61.1 Iron deficiency; R11.0 Nausea; C78.7 Secondary malignant neoplasm of liver and intrahepatic bile duct; R19.00 Intra-abdominal and pelvic swelling, mass and lump, unspecified site
CPT/HCPCS: 36415; 71260; 74177; 80053; 85025; Q9966

== ENCOUNTER 2019-06-20 08:48 | Outpatient (CLI) | payer MEDICARE, BC ==
--- NOTE | 2019-06-20 10:30 | CT ---
CT of the chest, abdomen, and pelvis: 06/20/2019 COMPARISON: 03/28/2019, 01/16/2019 HISTORY: Colon cancer TECHNIQUE: Axial CT imaging at 5 mm intervals from the thoracic inlet through the pubic symphysis wit h IV contrast/oral contrast. Coronal and sagittal reformatted imaging obtained FINDINGS: There is a right Port-A-Cath, distal tip in region of distal SVC. No axillary lymphadenopathy. No hilar or mediastinal lymphadenopathy is evident. There is a lobulated irregular hypodense/necrotic soft tissue mass on the right within the posterior medial aspect of the right upper lobe abutting the right lateral aspect of the T2-T5 vertebral bodies. The inferior aspect of this abnormality abuts the superior margin of the right mainstem bronc hus. Bronchi supplying the right upper lobe extending into this region and are irregularly marginated and narrowed. This abnormality measures approximately 6.7 cm in AP dimension and 3.3 cm in transverse dimension. This has decreased in size when compared to most recent prior exam at which time it measured approximately 7.6 cm AP dimension and 4.1 cm transverse dimension. Along the anterio r aspect of this abnormality is a spiculated mass, best seen on axial image 17, which measured 1.7 cm AP dimension, measuring 2.6 cm on the 03/28/2019 exam. No pneumothorax is evident on either side. There are severe emphysematous changes noted bilaterally with an upper lobe predominance. Right middle lobe granuloma noted on axial image 36. There has been interval development of nonspecific epidural gas within the upper thoracic spine, mid thoracic spine, and lower thoracic spine. No epidural gas is noted within the lumbar region. There is scattered atherosclerotic calcification of the thoracic aorta, the coronary arterial structu res, and the proximal great vessels. The osseous structures of the chest demonstrate no worrisome lytic or blastic lesions. No free intraperitoneal air or fluid is noted. There is a subtle hypodense lesion within the superior aspect of the right lobe of the liver which me asures approximately 1.3 cm in transverse dimension, decreased from 1.6 cm on the 03/28/2019 examination and similar in size when compared to 01/16/2019 examination. No new or additional hepatic lesion is appreciated. The spleen, gallbladder, pancreas, adrenal glands , and kidneys demonstrate no acute findings. The prostate gland is markedly enlarged heterogeneous and lobulated, herniating into the region of th e urinary bladder base. There is a sigmoid colonic suture line present. There is a colostomy in the midline upper abdomen. No evidence for bowel obstruction is appreciated. There is a vague soft tissue mass at the anastomotic site within the deep posterior pelvis which measures 1.7 cm in transverse dimension. This lesion has decreased in size when compared to the most recent prior exam at which time it measured 3.2 cm in transverse dimension. There is a vague/ill-defined soft tissue density just to the left of the distal abdominal aorta on axial image 96 measuring approximately 9 mm in AP dimension, suggesting an abnormal node, decreased in size when compared to the prior study at which time it mary ured 1.2 cm. On the prior examination there was a vague soft tissue mass on axial image 102 within the left hemipelvis adjacent to the anastomosis which is not discretely visualized on this examinatio n. Review of the osseous structures of the abdomen/pelvis demonstrate no discrete worrisome lytic or yossi stic bone lesions. IMPRESSION: Findings indicating interval response to therapy with interval decrease in size of the so ft tissue mass in the posteromedial right upper lobe region. In addition, the hepatic lesion near the dome on the right has decreased in size and soft tissue masses within the pelvis have significant ly decreased in size. Of note, there has been interval development of nonspecific epidural gas within the thoracic region. Question a history of recent injection. CODE T This case was discussed with Dr. Singh at 10:25 AM 06/20/2019
[2019-06-20] MEDS ORDERED: Iopamidol 370 76% 100 ML VIAL ONE (13:50)
== END 2019-06-20 08:49 | disposition home or self-care (01) ==
LOC: CT 08:48
PROVIDERS: ATTEND Internal Medicine Hematology & Oncology
DX: C34.81 Malignant neoplasm of overlapping sites of right bronchus and lung (principal); C18.7 Malignant neoplasm of sigmoid colon; E61.1 Iron deficiency
CPT/HCPCS: 36415; 71260; 74177; 82565; Q9967

== ENCOUNTER 2019-09-28 09:08 | Inpatient (IN) | payer MEDICARE, BC ==
[2019-09-28] MEDS ORDERED: Acetaminophen 500 MG TAB ONE (09:33)
[2019-09-28 09:57] LABS: #Basophils 0.1 thou/uL (0.0-0.2); #Lymphocytes 0.1 thou/uL (1.20-3.40); #Monocytes 0.2 thou/uL (0.11-0.59); #Neutrophils 4.7 thou/uL (1.40-6.50); %Basophils 1.8 % (0.0-1.0); %Eosinophils 0.3 % (0.0-10.0); %Lymphocytes 2.4 % (21.0-51.0); %Monocytes 4.1 % (0.0-10.0); %Neutrophils 91.5 % (42.0-75.0); Hemoglobin 8.5 g/dL (14.0-18.0); Mean Corpuscular HGB CONC 32.4 g/dL (32.0-36.0); Mean Corpuscular Hemoglobin 30.1 pg (27.0-31.0); Mean Corpuscular Volume 92.9 fL (78.0-98.0); Mean Platelet Volume 6.9 fL (7.4-10.4); Platelet Count 335 thou/uL (130-400); RBC Distribution Width 14.7 % (11.5-14.5); Red Blood Cell (RBC) Count 2.84 mill/uL (4.70-6.10); White Blood Cell (WBC) Count 5.2 thou/uL (4.8-10.8)
[2019-09-28] MEDS ORDERED: Cefepime 2 GM VIAL ONE (09:58)
[2019-09-28 10:03] LABS: INR-International Normal Ratio 1.1; PTT 29.5 SEC (22.9-36.1); Prothrombin Time 14.5 SEC (12.0-14.7)
--- NOTE | 2019-09-28 10:03 | RAD ---
Exam: Chest one view HISTORY:Cough. Low-grade fever. Patient is status post chemotherapy. Comparison: 10/18/2018 FINDINGS: Cardiac silhouette: Normal Aorta: Unremarkable Pulmonary vessels: Normal Costophrenic angles: There Lines and tubes: Stable right-sided Mediport catheter LUNGS: Interstitial and alveolar opacities in the right upper lobe may represent malignancy versus pn eumonia. Pneumothorax: None Osseous abnormalities: None IMPRESSION: 1. Focal opacity in the right upper lobe which may represent malignancy versus pneumonia. Continued s urveillance is recommended.
[2019-09-28 10:21] LABS: ALT (SGPT) 10 U/L (8-55); AST (SGOT) 12 U/L (5-34); Albumin 3.1 g/dL (3.4-4.8); Alkaline Phosphatase 250 U/L (40-110); Anion Gap 15 mmol/L (10-20); BUN (Urea Nitrogen) 10 mg/dL (8.4-25.7); Bilirubin, Total 0.5 mg/dL (0.2-1.2); CK (CPK) 83 U/L (30-200); Calc. Creatinine Clearance 0 mL/min (70-130); Calcium 9.1 mg/dL (7.8-10.44); Carbon Dioxide 27 mmol/L (23-31); Chloride 97 mmol/L (98-107); Estimated GFR-MDRD Greater than 90; Globulin 3.4 g/dL (2.4-3.5); Glucose 139 mg/dL (83-110); Lipase 13 U/L (8-78); Magnesium 2.1 mg/dL (1.6-2.6); Potassium 4.2 mmol/L (3.5-5.1); Protein, Total 6.5 g/dL (5.8-8.1); Sodium 135 mmol/L (136-145)
[2019-09-28 10:31] LABS: Bilirubin Negative (Negative); Blood, Urine Negative (Negative); Clarity Clear (Clear); Glucose, Urine (Dipstick) Normal (Negative); Leukocyte Negative Leu/uL (Negative); Nitrite Negative (Negative); Protein, Urine (Dipstick) 20 mg/dL (Neg-Trace); Urobilinogen Normal mg/dL (Less than 2)
[2019-09-28 10:42] LABS: CKMB 0.4 ng/mL (0-6.6)
[2019-09-28] MEDS ORDERED: Iopamidol 370 76% 50 ML VIAL FS ONE (11:04)
[2019-09-28] MEDS ORDERED: Iopamidol 370 76% 100 ML VIAL ONE (11:04)
--- NOTE | 2019-09-28 12:16 | CT ---
EXAM: CT chest, abdomen, and pelvis with IV contrast: HISTORY: Fever, history of cancer. Patient currently on chemotherapy. Injury after fall. COMPARISON: 06/10/2019 FINDINGS: CT THORAX: Lungs: There is what appears to be necrosis in the region of the previously seen right suprahilar/hil ar mass at the posteromedial aspect of the right upper lung zone. However, there has been interval development of increased parenchymal density and consolidation in the right upper lobe with a cavitar y lesion seen in the right upper lobe/right lung apex measuring 6.5 cm transverse x5.7 cm AP with air-fluid level. In the areas of consolidation, there is decreased attenuation and multifocal areas of gas density present. There is area of cavitation seen within the previously described mass in the left suprahilar/perihilar region. There is occlusion of a right upper lobe bronchus. There are patchy parenchymal densities seen within the right lower lobe which could be related to pos tobstructive pneumonitis. Lymphangitic spread of tumor is a possibility. There are reticulonodular densities in the left lung base suggestive of infectious or inflammatory pr ocess. Pleura: No pleural effusion. Lymph nodes: Nonspecific and nonenlarged right hilar lymph nodes are identified. Mediastinum: Vascular calcifications are seen in the thoracic aorta and involving the coronary arteri es. Tiny pericardial effusion is present. A right internal jugular vein Mediport catheter is again noted in place. Chest wall: No abnormalities CT ABDOMEN AND PELVIS: Liver: A stable 1.1 cm hypodense lesion is seen in the dome of the liver. Gallbladder: Mildly distended.\ Pancreas: Within normal limits. Spleen:Splenic granuloma is present. Adrenal glands: Within normal limits. Kidneys: Normal left hydronephrosis is present. Exact etiology is uncertain. Urinary Bladder: Distended. There is mass effect on the urinary bladder secondary to an enlarged and heterogeneous prostate gland also seen on prior study. Prostate gland measures 7.3 cm in transverse dimensions. Bowel: Colostomy is again seen in the epigastric region. There is anastomosis seen in the region of t he sigmoid colon. Loops of small bowel are normal in caliber. Suggested soft tissue density masslike structure adjacent to the sigmoid anastomosis is again seen me asuring 1.7 cm. This could be related to postsurgical changes in this region as opposed to an enlarged lymph node. However, this is an overall stable finding compared to prior exam. Adenopathy:No lymphadenopathy within the abdomen or pelvis. Peritoneum: Trace amount of free fluid is seen in the lower pelvis. Abdominal wall: Tiny fat-containing umbilical hernia is again identified. Osseous structures: There are a few stable sclerotic densities again seen in the left iliac bone unch anged compared to prior study in 2017 suggesting nonaggressive lesions. There is a new subcentimeter sclerotic density in the left iliac bone near the level of the iliac crest which is not definitively seen on prior exam. However, due to very small size, this is difficult to characterize and could represent a suspicious sclerotic lesion versus a bone island. IMPRESSION: 1. Areas of cavitation in the previously seen mass medial aspect right hilar/perihilar region. There is now adjacent area of heterogeneity and consolidation with several gas densities seen. Findings may be related to post obstructive infectious process or progression in neoplastic process. There is a larger cavitary lesion in the right upper lobe with air-fluid level which may be related to infectious process or progression in neoplastic process. 2. Reticulonodular densities left lung base which may be related to infectious or inflammatory proces s. 3. Stable hypodense presumed metastatic lesion in the dome of the liver. 4. Additional findings as described above.
[2019-09-28] MEDS ORDERED: Ondansetron PF 4 MG/2 ML Vial IVP PRN (13:13)
[2019-09-28] MEDS ORDERED: HYDROcodone/Acetaminophen 10/325 mg Tablet PO PRN (16:25)
[2019-09-28] MEDS: HYDROcodone/Acetaminophen 10/325 mg Tablet PO PRN (16:38)
--- NOTE | 2019-09-28 19:16 | PDOC.HHP ---
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 He presented to the emergency department with complaints of worsening generalized weakness and cough for 1 week. The patient stated that his cough is productive of brownish phlegm. He has been short of breath but denies chest pain, fever, chills, nausea or vomiting. In the ER, a fever of 102 was documented along with tachypnea and tachycardia suggesting presence of sepsis. Hospitalist ROS - Review of Systems All other systems reviewed; all pertinent +/- noted in HPI/Subj - Medication Medications: Active Medications Generic Name Dose Route Start Last Admin Trade Name Freq PRN Reason Stop Dose Admin Hydrocodone Bitart/Acetaminophen 2 tab 09/28/19 16:25 09/28/19 16:38 [place] 10/325 PO 2 tab Q4H PRN Administration PAIN SCALE 7-10 Hospitalist History - Past Medical History Cardiac: reports: HTN Other Medical History: Small cell lung cancer. Colon cancer with metastasis to the liver - Past Surgical History Other Surgical History: Partial colectomy with colostomy - Social History Smoking Status: Never smoker Alcohol: reports: None Drugs: reports: none - Exam General Appearance: ill appearing Eye: anicteric sclera ENT: normocephalic atraumatic, no oropharyngeal lesions Neck: supple, no JVD Heart: RRR, no murmur, no gallops, no rubs Respiratory: normal chest expansion, tachypneic Gastrointestinal: soft, non-tender, non-distended, normal bowel sounds Neurological: cranial nerve grossly intact, no focal deficits Hospitalist Results - Labs Result Diagrams: 09/28/19 09:40 09/28/19 09:40 Lab results: WBC 5.2 thou/uL (4.8-10.8) 09/28/19 09:40 Hgb 8.5 g/dL (14.0-18.0) L 09/28/19 09:40 Hct 26.4 % (42.0-52.0) L 09/28/19 09:40 MCV 92.9 fL (78.0-98.0) 09/28/19 09:40 Plt Count 335 thou/uL (130-400) 09/28/19 09:40 Neutrophils % 91.5 % (42.0-75.0) H 09/28/19 09:40 Sodium 135 mmol/L (136-145) L 09/28/19 09:40 Potassium 4.2 mmol/L (3.5-5.1) 09/28/19 09:40 Chloride 97 mmol/L (98-107) L 09/28/19 09:40 Carbon Dioxide 27 mmol/L (23-31) 09/28/19 09:40 BUN 10 mg/dL (8.4-25.7) 09/28/19 09:40 Creatinine 0.64 mg/dL (0.7-1.3) L 09/28/19 09:40 Glucose 139 mg/dL (83-110) H 09/28/19 09:40 Lactic Acid 1.9 mmol/L (0.5-2.2) 09/28/19 09:40 Calcium 9.1 mg/dL (7.8-10.44) 09/28/19 09:40 Total Bilirubin 0.5 mg/dL (0.2-1.2) 09/28/19 09:40 AST 12 U/L (5-34) 09/28/19 09:40 ALT 10 U/L (8-55) 09/28/19 09:40 Alkaline Phosphatase 250 U/L (40-110) H 09/28/19 09:40 Creatine Kinase 83 U/L (30-200) 09/28/19 09:40 CK-MB (CK-2) 0.4 ng/mL (0-6.6) 09/28/19 09:40 Troponin I 0.030 ng/mL (< 0.028) H 09/28/19 09:40 Serum Total Protein 6.5 g/dL (5.8-8.1) 09/28/19 09:40 Albumin 3.1 g/dL (3.4-4.8) L 09/28/19 09:40 Lipase 13 U/L (8-78) 09/28/19 09:40 Urine Ketones Negative mg/dL (Negative) 09/28/19 09:50 Urine Blood Negative (Negative) 09/28/19 09:50 Urine Nitrite Negative (Negative) 09/28/19 09:50 Ur Leukocyte Esterase Negative Arvind/uL (Negative) 09/28/19 09:50 Hospitalist H&P A/P - Problem (1) Right upper lobe pneumonia Code(s): J18.9 - PNEUMONIA, UNSPECIFIED ORGANISM Status: Acute (2) Sepsis Code(s): A41.9 - SEPSIS, UNSPECIFIED ORGANISM Status: Acute (3) Small cell lung cancer Code(s): C34.90 - MALIGNANT NEOPLASM OF UNSP PART OF UNSP BRONCHUS OR LUNG Status: Acute (4) Hypertension Code(s): I10 - ESSENTIAL (PRIMARY) HYPERTENSION Status: Acute (5) Colon cancer Code(s): C18.9 - MALIGNANT NEOPLASM OF COLON, UNSPECIFIED Status: Acute - Plan Plan: Sepsis due to postobstructive right-sided pneumonia complicated by immunosuppressive state given his recent chemotherapy. We will treat with broad-spectrum IV antibiotics vancomycin and meropenem given his penicillin allergy. Obtain sputum and blood cultures. Supplemental oxygen as needed. Lovenox for DVT prophylaxis.
[2019-09-28 19:26] VITALS: BMI 18.7
[2019-09-28] MEDS ORDERED: Aztreonam 1 GM in Sodium Chloride 0.9% 100 ML IVPB SCH (21:00)
[2019-09-28] MEDS ORDERED: Non-Formulary Item 1 EACH (Valsartan/Hydrochlorothiazide [Diovan Hct] 1 TABLET) PO SCH (21:00)
[2019-09-28] MEDS: ALPRAZolam 0.25 MG TAB PO SCH (21:32)
[2019-09-28] MEDS: Valsartan 80 MG TAB PO SCH (21:33)
[2019-09-28] MEDS: rOPINIRole HCl 1 MG TAB PO SCH (21:33)
[2019-09-28] MEDS: predniSONE 20 MG TAB PO SCH (21:33)
[2019-09-28] MEDS: MEROPENEM 1 GM/50 ML 1 GM in Premix Bag 1 BAG IVPB SCH (21:43)
[2019-09-28] MEDS: Vancomycin HCl 1 GM in Premix Bag 1 BAG IVPB SCH (23:21)
[2019-09-29 07:26] LABS: Anion Gap 15 mmol/L (10-20); BUN (Urea Nitrogen) 11 mg/dL (8.4-25.7); Calc. Creatinine Clearance 87 mL/min (70-130); Calcium 9.7 mg/dL (7.8-10.44); Carbon Dioxide 27 mmol/L (23-31); Chloride 102 mmol/L (98-107); Estimated GFR-MDRD Greater than 90; Glucose 157 mg/dL (83-110); Potassium 3.9 mmol/L (3.5-5.1); Sodium 140 mmol/L (136-145)
[2019-09-29 07:51] LABS: #Lymphocytes 0.5 thou/uL (1.20-3.40); #Monocytes 0.3 thou/uL (0.11-0.59); #Neutrophils 9.4 thou/uL (1.40-6.50); %Eosinophils 0.1 % (0.0-10.0); %Neutrophils 91.9 % (42.0-75.0); Hemoglobin 8.9 g/dL (14.0-18.0); Mean Corpuscular HGB CONC 31.6 g/dL (32.0-36.0); Mean Corpuscular Hemoglobin 29.9 pg (27.0-31.0); Mean Corpuscular Volume 94.4 fL (78.0-98.0); Mean Platelet Volume 6.8 fL (7.4-10.4); Platelet Count 452 thou/uL (130-400); RBC Distribution Width 14.8 % (11.5-14.5); Red Blood Cell (RBC) Count 2.96 mill/uL (4.70-6.10); White Blood Cell (WBC) Count 10.2 thou/uL (4.8-10.8)
[2019-09-29] MEDS ORDERED: FLU VACC TS2019-20(65YR UP)/PF 180 MCG/0.5 ML SYRINGE IM ONE (09:00)
[2019-09-29] MEDS ORDERED: Prevnar 13-Val Conj/PF 0.5 ML SYRINGE IM ONE (09:00)
[2019-09-29] MEDS ORDERED: Non-Formulary Item 1 EACH (Sertraline Hcl [Zoloft] 50 MG) PO SCH (09:00)
[2019-09-29] MEDS: MEROPENEM 1 GM/50 ML 1 GM in Premix Bag 1 BAG IVPB SCH ×2 (09:15→21:21)
[2019-09-29] MEDS: Hydrochlorothiazide 25 MG TAB PO SCH (09:16)
[2019-09-29] MEDS: HYDROcodone/Acetaminophen 10/325 mg Tablet PO PRN (09:17)
[2019-09-29] MEDS: predniSONE 20 MG TAB PO SCH (09:19)
[2019-09-29] MEDS: Enoxaparin Sodium 40 MG/0.4 ML SYRINGE SC SCH (09:20)
--- NOTE | 2019-09-29 11:59 | PDOC.HOSPP ---
- Subjective Encounter Date: 09/29/19 Subjective: Complains of a cold room that is exacerbating his shingles pain. He takes meds scheduled at home, but not getting it as often here. He has been on Prednisone in the past, but has not been on it recently. He generally walks at home, but he got weak, fell and could not get up at home. - Objective Vital Signs & Weight: Vital Signs (12 hours) Temp Pulse Resp BP Pulse Ox 09/29/19 07:25 97.8 F 71 20 145/56 H 96 09/29/19 03:57 97.8 F 70 14 130/64 96 09/28/19 23:59 97.7 F 70 14 123/59 L 98 Weight Admit Weight 138 lb 3.2 oz Weight 138 lb 3.2 oz I&O: 09/28/19 09/29/19 09/30/19 06:59 06:59 06:59 Intake Total 600 200 Output Total 50 250 Balance 550 -50 Result Diagrams: 09/29/19 06:33 09/29/19 06:33 Hospitalist ROS - Medication Medications: Active Medications Generic Name Dose Route Start Last Admin Trade Name Jonoq PRN Reason Stop Dose Admin Alprazolam 0.5 mg 09/28/19 21:00 09/28/19 21:32 Xanax PO 0.5 mg HS CHANCE Administration Enoxaparin Sodium 40 mg 09/29/19 09:00 09/29/19 09:20 Lovenox SC 40 mg 0900 CHANCE Administration Hydrochlorothiazide 12.5 mg 09/29/19 09:00 09/29/19 09:16 Hydrochlorothiazide PO 12.5 mg DAILY CHANCE Administration Vancomycin HCl 1 gm/ Device 200 mls @ 200 mls/hr 09/28/19 23:00 09/28/19 23: 21 IVPB 200 mls 1100,2300 CHANCE Administration Meropenem 1 gm/ Device 50 mls @ 100 mls/hr 09/28/19 21:00 09/29/19 09:15 IVPB 50 mls Q12HR CHANCE Administration Pantoprazole Sodium 40 mg 09/29/19 09:00 09/29/19 09:15 Protonix PO 40 mg DAILY CHANCE Administration Ropinirole HCl 0.5 mg 09/28/19 21:00 09/28/19 21:33 Requip PO 0.5 mg HS CHANCE Administration Sertraline HCl 50 mg 09/29/19 09:00 09/29/19 09:16 Zoloft PO 50 mg DAILY CHANCE Administration Valsartan 80 mg 09/28/19 21:00 09/28/19 21:33 Diovan PO 80 mg HS CHANCE Administration - Exam General Appearance: NAD, awake alert General - other findings: Very thin with temporalis muscle wasting. Heart: RRR, no murmur, no gallops, no rubs, normal peripheral pulses Respiratory: CTAB, no wheezes, no rales, no ronchi, normal chest expansion, no tachypnea, normal percussion Gastrointestinal: soft, non-tender, non-distended, normal bowel sounds, no palpable masses, no hepatomegaly, no splenomegaly, no bruit Gastrointestinal - other findings: Colostomy Extremities: no cyanosis, no clubbing, no edema Skin: normal turgor Skin - other findings: Large area on the left thoracic back with healing shingles scars Psychiatric: normal affect, normal behavior, A&O x 3 Hosp A/P (1) Right upper lobe pneumonia Code(s): J18.9 - PNEUMONIA, UNSPECIFIED ORGANISM Status: Acute (2) Anemia Code(s): D64.9 - ANEMIA, UNSPECIFIED Status: Acute (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 Was febrile and has a productive cough. CT with post-obstructive pneumonia v. inflammatory changes related to the lung cancer. On broad spectrum abx. DC steroids for lack of indication and clarification that he was not on these at home prior to admission. Onc. consult pending. Lesions are cavitary and may all be findings consistent with lung ca and/or tx. Resume home xanax. Resume scheduled [place] for neuropathic pain. Resume Gabapentin. PT consult for weakness. If ok, can do the walking program. Transmission Assembler consult for weight loss of 30+ pounds in 4-5 months. Patient/family believe it is more related to the shingles pain than the cancer.
[2019-09-29] MEDS: HYDROcodone/Acetaminophen 10/325 mg Tablet PO SCH ×3 (12:39→23:51)
[2019-09-29] MEDS: Vancomycin HCl 1 GM in Premix Bag 1 BAG IVPB SCH (12:41)
--- NOTE | 2019-09-29 19:57 | CON ---
DATE OF CONSULTATION: REASON FOR CONSULTATION: Colon cancer. HISTORY OF PRESENT ILLNESS: A 78-year-old male, with history of limited stage small cell carcinoma, status post chemotherapy and radiation in July 2016, now with metastatic colon cancer, currently on chemotherapy with FOLFIRI plus Avastin, last received on September 19, 2019, presenting to the hospital after a fall. The patient states he is feeling weak with worsening shortness of breath and cough and fell recently on his butt and due to this constellation of symptoms, he came to the ER. He states that his cough has been dry and nonproductive and he denies any fevers, but his breathing has been worse over the last week. He denies any nausea, vomiting, or increased output in his ostomy. He has left upper back pain from shingles, but denies any other new pains at this time. In the ER, he was noted to have a temperature of 102, and had a chest x-ray suggestive of pneumonia and on CT his prior necrotic right suprahilar mass was again seen with a cavitary lesion 6.5 x 5.7 cm, which does appear slightly increased from last CAT scan; however, there is consolidation in this area limiting true delineation. He has a stable liver lesion and no other signs of progression of disease. REVIEW OF SYSTEMS: 10-point review of systems negative except as per HPI. PAST MEDICAL HISTORY: Hypertension, asthma, small cell lung cancer, colon cancer. PAST SURGICAL HISTORY: Hemicolectomy with ostomy, MediPort. SOCIAL HISTORY: Former smoker. No current alcohol. PHYSICAL EXAMINATION: GENERAL APPEARANCE: The patient is lying in bed, in no acute distress. HEENT: Normocephalic, atraumatic. NECK: Supple. No palpable lymphadenopathy. CARDIAC: S1, S2. Regular rhythm and rate. RESPIRATIONS: Good air movement; however, diffuse inspiratory and expiratory wheezing. ABDOMEN: Soft, nondistended, and nontender. Left-sided ostomy with normal colored stool. NEUROLOGIC: Cranial nerves 2 through 12 are grossly intact. PSYCHIATRIC: Awake, alert, and oriented x3. VITAL SIGNS: Temperature 97.8, pulse 71, respirations 20, saturating 96% on room air, blood pressure 145/56. LABORATORY DATA: White blood cells 10.2, hemoglobin 8.9, platelets 452, neutrophils 91.9%. Sodium 140, potassium 3.9, BUN 11, creatinine 0.64. Lactic acid 1.9. IMAGING DATA: As reported in HPI. ASSESSMENT AND PLAN: A 78-year-old male, with history of limited stage small cell carcinoma, status post chemotherapy and radiation in 2016, now with metastatic colon cancer on chemotherapy, presenting to the hospital after a fall with shortness of breath, cough, and fever and found to have pneumonia. The patient is currently on antibiotics and has a normal white count and is already responding and feeling much better and currently afebrile with stable vital signs. His CAT scan shows possible progression in the lung. However, true delineation is difficult given concurrent pneumonia. He has no other signs of progression of disease. He was due for a repeat restaging scans on October 02; however, this is no longer necessary and he can follow up with Dr. Singh as scheduled on October 04 unless he is still in the hospital at that time. I expect the patient will likely be able to be discharged within the next couple of days if he continues to respond well. Thank you for this consult. Job ID: [id number]
[2019-09-29] MEDS: rOPINIRole HCl 1 MG TAB PO SCH (21:18)
[2019-09-29] MEDS: ALPRAZolam 0.25 MG TAB PO SCH ×2 (21:21→23:29)
[2019-09-29] MEDS: Valsartan 80 MG TAB PO SCH (21:21)
[2019-09-29 22:42] LABS: Vancomycin, Trough 10.2 ug/mL
[2019-09-29] MEDS: Vancomycin HCl 1.25 GM in Sodium Chloride 0.9% 250 ML 250 ML IVPB SCH (23:52)
[2019-09-30 05:29] LABS: #Lymphocytes 0.7 thou/uL (1.20-3.40); #Monocytes 0.5 thou/uL (0.11-0.59); #Neutrophils 8.1 thou/uL (1.40-6.50); %Basophils 0.1 % (0.0-1.0); %Lymphocytes 7.4 % (21.0-51.0); %Neutrophils 87.5 % (42.0-75.0); Mean Corpuscular HGB CONC 32.1 g/dL (32.0-36.0); Mean Corpuscular Hemoglobin 29.8 pg (27.0-31.0); Mean Corpuscular Volume 92.6 fL (78.0-98.0); Mean Platelet Volume 6.5 fL (7.4-10.4); Platelet Count 464 thou/uL (130-400); RBC Distribution Width 14.7 % (11.5-14.5); White Blood Cell (WBC) Count 9.3 thou/uL (4.8-10.8)
[2019-09-30 05:53] LABS: Anion Gap 13 mmol/L (10-20); BUN (Urea Nitrogen) 11 mg/dL (8.4-25.7); Calc. Creatinine Clearance 98 mL/min (70-130); Calcium 9.1 mg/dL (7.8-10.44); Carbon Dioxide 29 mmol/L (23-31); Chloride 99 mmol/L (98-107); Estimated GFR-MDRD Greater than 90; Glucose 117 mg/dL (83-110); Potassium 3.5 mmol/L (3.5-5.1); Sodium 137 mmol/L (136-145)
[2019-09-30] MEDS: HYDROcodone/Acetaminophen 10/325 mg Tablet PO SCH ×4 (06:04→23:40)
[2019-09-30] MEDS: Gabapentin 300 MG CAP PO SCH (08:44)
[2019-09-30] MEDS: ALPRAZolam 0.25 MG TAB PO SCH ×2 (08:44→20:52)
[2019-09-30] MEDS: Hydrochlorothiazide 25 MG TAB PO SCH (08:45)
[2019-09-30] MEDS: MEROPENEM 1 GM/50 ML 1 GM in Premix Bag 1 BAG IVPB SCH ×2 (08:46→20:51)
[2019-09-30] MEDS: Enoxaparin Sodium 40 MG/0.4 ML SYRINGE SC SCH (08:47)
[2019-09-30] MEDS: Vancomycin HCl 1.25 GM in Sodium Chloride 0.9% 250 ML 250 ML IVPB SCH ×2 (11:07→23:37)
[2019-09-30] MEDS ORDERED: Morphine 2 MG/ML SYRINGE SLOW IVP PRN (19:22)
[2019-09-30] MEDS ORDERED: Zolpidem Tartrate 5 MG TAB PO PRN (19:23)
[2019-09-30] MEDS ORDERED: Gabapentin 300 MG CAP PO SCH (19:30)
[2019-09-30] MEDS: Valsartan 80 MG TAB PO SCH (20:51)
[2019-09-30] MEDS: rOPINIRole HCl 1 MG TAB PO SCH (20:51)
--- NOTE | 2019-09-30 22:12 | PDOC.HOSPP ---
- Subjective Encounter Date: 09/30/19 Subjective: Still having some pain with his neuropathy from resolved zoster. Says the generic norco work well at home, but no helping him here. Otherwise feels well. Says he always does better at home. - Objective Vital Signs & Weight: Vital Signs (12 hours) Temp Pulse Resp BP Pulse Ox 09/30/19 20:00 98.1 F 85 20 176/72 H 93 L Weight Admit Weight 138 lb 3.2 oz Weight 138 lb 3.2 oz I&O: 09/29/19 09/30/19 10/01/19 06:59 06:59 06:59 Intake Total 600 920 Output Total 50 250 Balance 550 670 Result Diagrams: 09/30/19 05:13 09/30/19 05:13 Hospitalist ROS - Medication Medications: Active Medications Generic Name Dose Route Start Last Admin Trade Name Freq PRN Reason Stop Dose Admin Hydrocodone Bitart/Acetaminophen 2 tab 09/29/19 12:00 09/30/19 17:57 [place] 10/325 PO 2 tab Q6H HCANCE Administration Alprazolam 0.25 mg 09/29/19 21:00 09/30/19 20:52 Xanax PO 0.25 mg BID CHANCE Administration Enoxaparin Sodium 40 mg 09/29/19 09:00 09/30/19 08:47 Lovenox SC 40 mg 0900 CHANCE Administration Gabapentin 300 mg 09/30/19 09:00 09/30/19 08:44 Neurontin PO 300 mg DAILY CHANCE Administration Hydrochlorothiazide 12.5 mg 09/29/19 09:00 09/30/19 08:45 Hydrochlorothiazide PO 12.5 mg DAILY CHANCE Administration Meropenem 1 gm/ Device 50 mls @ 100 mls/hr 09/28/19 21:00 09/30/19 20:51 IVPB 50 mls Q12HR CHANCE Administration Vancomycin HCl 1.25 gm/ Sodium 250 mls @ 166.667 mls/hr 09/29/19 23:00 11:07 Chloride IVPB 250 mls 1100,2300 CHANCE Administration Pantoprazole Sodium 40 mg 09/29/19 09:00 09/30/19 08:44 Protonix PO 40 mg DAILY CHANCE Administration Ropinirole HCl 0.5 mg 09/28/19 21:00 09/30/19 20:51 Requip PO 0.5 mg HS CHANCE Administration Sertraline HCl 50 mg 09/29/19 09:00 09/30/19 08:45 Zoloft PO 50 mg DAILY CHANCE Administration Valsartan 80 mg 09/28/19 21:00 09/30/19 20:51 Diovan PO 80 mg HS CHANCE Administration Zolpidem Tartrate 5 mg 09/30/19 19:23 09/30/19 20:51 Ambien PO 5 mg HSPRN PRN Administration Insomnia - Exam General Appearance: NAD, awake alert General - other findings: Thin. Heart: RRR, no murmur, no gallops, no rubs, normal peripheral pulses Respiratory: no wheezes, no ronchi, normal chest expansion, no tachypnea, normal percussion, rales (mild, scattered.) Gastrointestinal: soft, non-tender, non-distended, normal bowel sounds, no palpable masses, no hepatomegaly, no splenomegaly, no bruit Extremities: no cyanosis, no clubbing, no edema Skin: normal turgor Musculoskeletal: normal tone, normal strength, no muscle wasting Psychiatric: normal affect, normal behavior, A&O x 3 Hosp A/P (1) Right upper lobe pneumonia Code(s): J18.9 - PNEUMONIA, UNSPECIFIED ORGANISM Status: Acute (2) Anemia Code(s): D64.9 - ANEMIA, UNSPECIFIED Status: Acute (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 Was febrile and has a productive cough. CT with post-obstructive pneumonia v. inflammatory changes related to the lung cancer. On broad spectrum abx. Appreciate Onc consult. Resumed home xanax. Resume scheduled [place] for neuropathic pain. Resumed Gabapentin. Add pm dose. Add ambien. Add morphine for breakthrough pain. PT consult for weakness. If ok, can do the walking program. Psychiatric Clinical Nurse Specialist consult for weight loss of 30+ pounds in 4-5 months. Patient/family believe it is more related to the shingles pain than the cancer. Anticipate possible DC tomorrow.
[2019-10-01] MEDS: HYDROcodone/Acetaminophen 10/325 mg Tablet PO SCH ×4 (06:03→23:39)
[2019-10-01 06:12] LABS: #Lymphocytes 0.5 thou/uL (1.20-3.40); #Monocytes 0.4 thou/uL (0.11-0.59); #Neutrophils 3.2 thou/uL (1.40-6.50); %Eosinophils 0.3 % (0.0-10.0); %Lymphocytes 11.8 % (21.0-51.0); %Monocytes 8.7 % (0.0-10.0); %Neutrophils 79.2 % (42.0-75.0); Hemoglobin 8.1 g/dL (14.0-18.0); Mean Corpuscular HGB CONC 30.8 g/dL (32.0-36.0); Mean Corpuscular Hemoglobin 28.5 pg (27.0-31.0); Mean Corpuscular Volume 92.7 fL (78.0-98.0); Mean Platelet Volume 6.3 fL (7.4-10.4); Platelet Count 472 thou/uL (130-400); RBC Distribution Width 14.8 % (11.5-14.5); Red Blood Cell (RBC) Count 2.85 mill/uL (4.70-6.10)
[2019-10-01 06:31] LABS: Anion Gap 14 mmol/L (10-20); BUN (Urea Nitrogen) 8 mg/dL (8.4-25.7); Calc. Creatinine Clearance 101 mL/min (70-130); Calcium 8.8 mg/dL (7.8-10.44); Carbon Dioxide 29 mmol/L (23-31); Chloride 98 mmol/L (98-107); Estimated GFR-MDRD Greater than 90; Glucose 98 mg/dL (83-110); Potassium 3.5 mmol/L (3.5-5.1); Sodium 137 mmol/L (136-145)
[2019-10-01] MEDS: MEROPENEM 1 GM/50 ML 1 GM in Premix Bag 1 BAG IVPB SCH ×2 (08:48→21:17)
[2019-10-01] MEDS: Hydrochlorothiazide 25 MG TAB PO SCH (08:51)
[2019-10-01] MEDS: ALPRAZolam 0.25 MG TAB PO SCH ×2 (08:52→21:15)
[2019-10-01] MEDS: Gabapentin 300 MG CAP PO SCH (08:52)
[2019-10-01] MEDS: Enoxaparin Sodium 40 MG/0.4 ML SYRINGE SC SCH (08:53)
--- NOTE | 2019-10-01 10:27 | CT ---
EXAM: CT brain without contrast HISTORY: Dysarthria COMPARISON: None TECHNIQUE: Multiple contiguous axial images were obtained and a CT of the brain without contrast. FINDINGS: The brain is normal in morphology and attenuation without focal lesions or confluent areas of infarction. There is no evidence of hydrocephalus, intracranial hemorrhage, or extra-axial fluid collection. The calvarium and overlying soft tissues are unremarkable. The visualized paranasal sinuses and masto id air cells are well aerated. IMPRESSION: No evidence of acute intracranial abnormality
[2019-10-01 10:42] LABS: Vancomycin, Trough 14.2 ug/mL
[2019-10-01] MEDS: Vancomycin HCl 1.25 GM in Sodium Chloride 0.9% 250 ML 250 ML IVPB SCH ×2 (11:45→23:40)
--- NOTE | 2019-10-01 14:45 | PQF ---
CLINICAL DOCUMENTATION IMPROVEMENT CLARIFICATION FORM: ICD-10 Updated PLEASE DO AN ADDENDUM TO THE PROGRESS NOTE WITH ANY DOCUMENTATION UPDATES OR ADDITIONS AND CARRY THROUGH TO DC SUMMARY. THANK YOU. DATE: 10/01/19 ATTN: DR. SIERRA Please exercise your independent, professional judgment in responding to the clarification form. Clinical indicators are provided on the bottom of this form for your review Please check appropriate box(s) to clarify if the following diagnosis has been ruled in or ruled out: "SEPSIS" [ x ] Ruled in diagnosis [ ] Continue to treat [ ] Resolved [ ] Ruled out diagnosis [ ] Cannot rule out diagnosis [ ] Other diagnosis [ ] Unable to determine In addition, please specify: Present on Admission (POA): [ x ] Yes [ ] No [ ] Unable to determine For continuity of documentation, please document condition throughout progress notes and discharge summary. Thank You. CLINICAL INDICATORS - SIGNS / SYMPTOMS / LABS / RESULTS AND LOCATION IN MR H&P 09/28: "SEPSIS" ER NOTE: PULSE 129, TEMP 102.5 (PER EMS) WBC 4.0 (10/01) RISKS: METASTATIC CA WITH CHEMO TREATMENT (H&P 09/28) PNEUMONIA (H&P 09/28) TREATMENT: IV LEVAQUIN (ER) IV VANCOMYCIN (ER-PRESENT) IV CEFEPIME (ER) IV FLUIDS (ER) IV MERREM (09/28-PRESENT) BLOOD AND URINE CULTURES (09/28) RESPIRATORY CULTURES (09/29) [employer] Winform Viewer (This form is maintained as a part of the permanent medical record) 2014 [employer]. All Rights Reserved [email or web address] Office: [phone] [facility]
--- NOTE | 2019-10-01 20:12 | PDOC.HOSPP ---
- Subjective Encounter Date: 10/01/19 Subjective: Doing well. Eager to go home. He did sleep some last night. About 5 hours. Family reported he had slurred speech at home. Patient reports right facial droop is from a stroke when he was 13 years old. - Objective Vital Signs & Weight: Vital Signs (12 hours) Temp Pulse Resp BP BP Pulse Ox 10/01/19 20:00 98.3 F 80 20 160/76 H 95 10/01/19 17:32 98.7 F 78 20 170/69 H 93 L 10/01/19 11:44 98.8 F 78 20 169/73 H 97 Weight Admit Weight 138 lb 3.2 oz Weight 138 lb 3.2 oz I&O: 09/30/19 10/01/19 10/02/19 06:59 06:59 06:59 Intake Total 920 240 Output Total 250 Balance 670 240 Result Diagrams: 10/01/19 06:00 10/01/19 06:00 Hospitalist ROS - Medication Medications: Active Medications Generic Name Dose Route Start Last Admin Trade Name Breonna PRN Reason Stop Dose Admin Hydrocodone Bitart/Acetaminophen 2 tab 09/29/19 12:00 10/01/19 18:16 [place] 10/325 PO 2 tab Q6H CHANCE Administration Alprazolam 0.25 mg 09/29/19 21:00 10/01/19 08:52 Xanax PO 0.25 mg BID CHANCE Administration Enoxaparin Sodium 40 mg 09/29/19 09:00 10/01/19 08:53 Lovenox SC 40 mg 0900 CHANCE Administration Gabapentin 300 mg 09/30/19 09:00 10/01/19 08:52 Neurontin PO 300 mg DAILY CHANCE Administration Hydrochlorothiazide 12.5 mg 09/29/19 09:00 10/01/19 08:51 Hydrochlorothiazide PO 12.5 mg DAILY CHANCE Administration Meropenem 1 gm/ Device 50 mls @ 100 mls/hr 09/28/19 21:00 10/01/19 08:48 IVPB 50 mls Q12HR CHANCE Administration Vancomycin HCl 1.25 gm/ Sodium 250 mls @ 166.667 mls/hr 09/29/19 23:00 11:45 Chloride IVPB 250 mls 1100,2300 CHANCE Administration Pantoprazole Sodium 40 mg 09/29/19 09:00 02/24/20 08:52 Protonix PO 40 mg DAILY CHANCE Administration Ropinirole HCl 0.5 mg 09/28/19 21:00 09/30/19 20:51 Requip PO 0.5 mg HS CHANCE Administration Sertraline HCl 50 mg 09/29/19 09:00 10/01/19 08:52 Zoloft PO 50 mg DAILY CHANCE Administration Valsartan 80 mg 09/28/19 21:00 09/30/19 20:51 Diovan PO 80 mg HS CHANCE Administration Zolpidem Tartrate 5 mg 09/30/19 19:23 09/30/19 20:51 Ambien PO 5 mg HSPRN PRN Administration Insomnia - Exam General Appearance: NAD, awake alert ENT - other findings: Mild right facial droop and incomplete blink. Heart: RRR, no murmur, no gallops, no rubs, normal peripheral pulses Respiratory: CTAB, no wheezes, no ronchi, normal chest expansion, no tachypnea, normal percussion, rales (Mild, scattered.) Gastrointestinal: soft, non-tender, non-distended, normal bowel sounds, no palpable masses, no hepatomegaly, no splenomegaly, no bruit Extremities: no cyanosis, no clubbing, no edema Musculoskeletal: normal tone Psychiatric: normal affect, normal behavior, A&O x 3 Hosp A/P (1) Right upper lobe pneumonia Code(s): J18.9 - PNEUMONIA, UNSPECIFIED ORGANISM Status: Acute (2) Anemia Code(s): D64.9 - ANEMIA, UNSPECIFIED Status: Chronic (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 Was febrile and has a productive cough. CT with post-obstructive pneumonia v. inflammatory changes related to the lung cancer. On broad spectrum abx. Appears to be improved. Appreciate Onc consult. Resumed home xanax. Resume scheduled [place] for neuropathic pain. Resumed Gabapentin. Add pm dose. Seemed to be tolerated well and worked. Add ambien. Add morphine for breakthrough pain. PT consult for weakness. Did very well. Dispatch Lead consult for weight loss of 30+ pounds in 4-5 months. Patient/family believe it is more related to the shingles pain than the cancer. Anticipate possible DC tomorrow. Discussion with the patient's DIL / caregiver. He has had shingles, weight loss and now pneumonia as complications of the cancer. His post-herpetic neuralgia is significant and he is on several meds that can effect him neurocognitively. He will need to be monitored closely as these are sentinel events. He has follow up with Dr. Singh on . 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 Given the history of the fall and the additional history that he was slurring his speech, will check a head CT.
[2019-10-01] MEDS ORDERED: Gabapentin 300 MG CAP PO SCH (20:30)
[2019-10-01] MEDS: rOPINIRole HCl 1 MG TAB PO SCH (21:15)
[2019-10-01] MEDS: Valsartan 80 MG TAB PO SCH (21:15)
[2019-10-02] MEDS: HYDROcodone/Acetaminophen 10/325 mg Tablet PO SCH ×2 (06:37→15:24)
[2019-10-02 07:38] LABS: #Eosinphils 0.1 thou/uL (0.0-0.7); #Lymphocytes 0.8 thou/uL (1.20-3.40); #Monocytes 0.5 thou/uL (0.11-0.59); #Neutrophils 3.1 thou/uL (1.40-6.50); %Eosinophils 1.5 % (0.0-10.0); %Lymphocytes 17.9 % (21.0-51.0); %Monocytes 11.4 % (0.0-10.0); %Neutrophils 69.1 % (42.0-75.0); Mean Corpuscular HGB CONC 31.4 g/dL (32.0-36.0); Mean Corpuscular Hemoglobin 29.4 pg (27.0-31.0); Mean Corpuscular Volume 93.6 fL (78.0-98.0); Mean Platelet Volume 6.3 fL (7.4-10.4); Platelet Count 532 thou/uL (130-400); RBC Distribution Width 15.5 % (11.5-14.5); Red Blood Cell (RBC) Count 3.38 mill/uL (4.70-6.10); White Blood Cell (WBC) Count 4.5 thou/uL (4.8-10.8)
[2019-10-02 07:59] VITALS: BP 153/64; TEMP 97.8
[2019-10-02 08:04] LABS: Anion Gap 13 mmol/L (10-20); BUN (Urea Nitrogen) 7 mg/dL (8.4-25.7); Calc. Creatinine Clearance 87 mL/min (70-130); Calcium 9.5 mg/dL (7.8-10.44); Carbon Dioxide 29 mmol/L (23-31); Chloride 97 mmol/L (98-107); Estimated GFR-MDRD Greater than 90; Glucose 120 mg/dL (83-110); Potassium 3.8 mmol/L (3.5-5.1); Sodium 135 mmol/L (136-145)
[2019-10-02] MEDS: MEROPENEM 1 GM/50 ML 1 GM in Premix Bag 1 BAG IVPB SCH (08:36)
[2019-10-02] MEDS: Gabapentin 300 MG CAP PO SCH (08:37)
[2019-10-02] MEDS: ALPRAZolam 0.25 MG TAB PO SCH (08:37)
[2019-10-02] MEDS: Hydrochlorothiazide 25 MG TAB PO SCH (08:37)
[2019-10-02] MEDS: Enoxaparin Sodium 40 MG/0.4 ML SYRINGE SC SCH (08:38)
[2019-10-02] MEDS: Vancomycin HCl 1.25 GM in Sodium Chloride 0.9% 250 ML 250 ML IVPB SCH (12:33)
--- NOTE | 2019-10-03 14:15 | DIS ---
DATE OF ADMISSION: 09/28/2019 DATE OF DISCHARGE: 10/02/2019 DISCHARGE DIAGNOSES: 1. Right upper lobe pneumonia, possibly postobstructive. 2. Small cell lung cancer. 3. Colon cancer. 4. Anemia. 5. Postherpetic neuropathy. 6. Chronic obstructive pulmonary disease. 7. Hypertension. 8. Protein-calorie malnutrition, moderate. HISTORY: This patient is a 78-year-old male with a history of the small cell lung cancer and colon cancer, who presented through the emergency department reporting a generalized weakness and a cough for a week. Cough was productive of discolored sputum. In the ER, he had a fever of 102, was tachypneic and tachycardic, consistent with picture of sepsis. His CT chest, abdomen, and pelvis appeared to show a lesion in the right upper lobe consistent with his prior lung cancer, although there was cavitation to this particular lesion. There appears to be some potential postobstructive inflammatory changes concerning for possible pneumonia. There was a reticulonodular density in the left base, which may be related to infectious or inflammatory processes as well. HOSPITAL COURSE: The patient was admitted with sepsis with what appeared to be postobstructive pneumonia and was started on broad-spectrum antibiotics to address that. He was seen in consultation by Dr. Ferguson of the Oncology service, who is covering for the patient's primary oncologist, Dr. Singh. He did well initially. The family, however, reported that when he was at home, he had some altered mentation and fall, so a brain CT was obtained, which showed no evidence of progression or metastases. The patient's primary concern in the hospital was related to pain. The patient had a severe case of herpes zoster affecting his left posterior trunk, still had some large scarring in those area and some reported chronic neuropathic pain. He felt like the Holden he obtained in his home worked well, however, the same dose give in the hospital, he did not feel it worked quite as well. He also had some trouble sleeping as a consequence of this, although he was up and moving about fairly freely and was eager to discharge to home, therefore some of his medications were adjusted in order to try to more specifically tack the postherpetic neuralgia pain. Once the patient was evaluated by physical therapy, he felt to be in good physical shape for discharge. He was felt appropriate for discharge to home. PHYSICAL EXAMINATION: VITAL SIGNS: On the day of discharge temperature is 97.8, pulse 95, respirations 18, O2 saturation 95% on room air, and blood pressure 153/64. GENERAL: He is awake and alert. HEART: Regular rate and rhythm. LUNGS: Clear bilaterally. ABDOMEN: Soft, nontender, and nondistended. Positive bowel sounds. EXTREMITIES: No cyanosis, clubbing, or edema. DISPOSITION: The patient is discharged to home. DIET: He is to be on a regular diet. ACTIVITY: As tolerated. MEDICATIONS: Include; 1. Gabapentin 300 mg b.i.d. 2. Levaquin 500 mg daily. 3. Lidoderm patch one patch transdermally daily. He will continue with home medications including; 1. Ropinirole. 2. Pantoprazole. 3. Albuterol. 4. Alprazolam. 5. Holden. FOLLOWUP: He is to follow up with Dr. Tessy Singh and his PCP. He can return to the hospital at any time as he feels the need to do so. His case was discussed personally with Dr. Singh. TIME SPENT: Total time in discharge activities was 35 minutes. Job ID: [id number] [facility]
== END 2019-10-02 16:12 | disposition home or self-care (01) | DRG 871 ==
LOC: ERS 09:08 → ERHOLD 11:19 → T4-B 15:54
PROVIDERS: ADMIT Family Medicine; ATTEND Family Medicine
DX: A41.9 Sepsis, unspecified organism (principal); J18.9 Pneumonia, unspecified organism; C34.90 Malignant neoplasm of unspecified part of unspecified bronchus or lung; C18.9 Malignant neoplasm of colon, unspecified; C78.7 Secondary malignant neoplasm of liver and intrahepatic bile duct; B02.23 Postherpetic polyneuropathy; J44.0 Chronic obstructive pulmonary disease with (acute) lower respiratory infection; E44.0 Moderate protein-calorie malnutrition; Z68.1 Body mass index [BMI] 19.9 or less, adult; I10 Essential (primary) hypertension; Z90.49 Acquired absence of other specified parts of digestive tract; Z93.3 Colostomy status; D64.9 Anemia, unspecified
CPT/HCPCS: 36415; 70450; 71045; 71260; 74177; 80048; 80053; 80202; 81003; 82550; 82553; 83605; 83690; 83735; 84443; 84484; 85025; 85610; 85730; 87040; 87070; 87086; 87149; 87205; 87804; 93005; 96365; 96366; 96367; J0692; J1650; J1956; J2185; J3370; J7050; J7512; Q9967

== ENCOUNTER 2019-12-05 08:31 | Outpatient (CLI) | payer MEDICARE, BC ==
--- NOTE | 2019-12-05 10:29 | CT ---
CT CHEST WITH CONTRAST CT ABDOMEN WITH CONTRAST CT PELVIS WITH CONTRAST: HISTORY: Lung cancer and colon cancer. Not currently on treatment. COMPARISON: CT chest, abdomen, and pelvis 09/28/2019. FINDINGS: There is similar size of the right upper lobe cavity which has decreased fluid within the cavitation itself. Along the posterior wall is a nonenhancing tissue. This likely represents post radiation ne crosis and granulation/reparative tissue without significant enhancing mass remaining. High-grade background centrilobular emphysema. There is a subtle ground-glass nodule in the anterior segment of the right lower lobe axial image 48 without any solid component measuring 5 mm. 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 The reticulonodular opacities in the left lung base have markedly imp roved. The reticulonodular opacities in the right lower lobe have markedly improved. No pneumothorax. No effusion. No new airspace consolidation or suspicious pulmonary nodule. There is extensive epidural gas throughout the posterior thoracic spine. Healing left anterior 6th r ib fracture. Healing anterior left 7th rib fracture. Healing left 8th rib fracture. The sternum an d manubrium are intact. Unchanged superior end plate deformity with 10-15% height loss of T5. There is some gas in the paraspinal venous plexus and the left intercostal venous plexus. No pericardial effusion. No mediastinal adenopathy. The hypodensity hepatic segment 8 near the dome measures 1.6 cm in size, increased from the compariso n examination, although without significant enhancement suggesting treated metastatic disease. There is a loop colonostomy. Similar appearance to the postsurgical changes of rectosigmoid junction . The prostate is markedly enlarged. No dilated loops of large or small bowel. Moderate atherosclerot ic plaque of the aorta. No new hepatic mass. Gallbladder is unremarkable. No hydronephrosis. The spleen is unremarkable. Pancreas is unremarkable. IMPRESSION: 1. Similar size of the right lung apex post treatment cavitation with nonenhancing granular tissue a long the posterior wall. No solid enhancing tissue is appreciated to suggest residua. 2. Interval resolution of reticulonodular opacity suggesting improving aspiration or pneumonia. 3. Size increased hypodensity of the hepatic dome segment 8, although without significant internal e nhancing suggesting post treatment cavitation and necrosis. 4. No evidence for new metastatic disease. 5. Epidural venous plexus gas as well as paraspinal and intercostal gas, likely injection related, i atrogenic. POS: HOME
[2019-12-05] MEDS ORDERED: Iopamidol 370 76% 100 ML VIAL ONE (11:34)
== END 2019-12-05 08:32 | disposition home or self-care (01) ==
LOC: BICCT 08:31
PROVIDERS: ATTEND Internal Medicine Hematology & Oncology
DX: C34.81 Malignant neoplasm of overlapping sites of right bronchus and lung (principal); C18.7 Malignant neoplasm of sigmoid colon; J98.4 Other disorders of lung; R93.2 Abnormal findings on diagnostic imaging of liver and biliary tract; R91.8 Other nonspecific abnormal finding of lung field
CPT/HCPCS: 71260; 74177; Q9967

== ENCOUNTER 2020-01-11 09:17 | Inpatient (IN) | payer MEDICARE, BC ==
[2020-01-11 09:43] LABS: #Basophils 0.1 thou/uL (0.0-0.2); #Eosinphils 0.1 thou/uL (0.0-0.7); #Monocytes 0.6 thou/uL (0.11-0.59); #Neutrophils 5.4 thou/uL (1.40-6.50); %Basophils 0.8 % (0.0-1.0); %Eosinophils 1.1 % (0.0-10.0); %Lymphocytes 14.2 % (21.0-51.0); %Monocytes 8.6 % (0.0-10.0); %Neutrophils 75.3 % (42.0-75.0); Hemoglobin 12.9 g/dL (14.0-18.0); Mean Corpuscular HGB CONC 32.1 g/dL (32.0-36.0); Mean Corpuscular Hemoglobin 29.9 pg (27.0-31.0); Mean Corpuscular Volume 93.2 fL (78.0-98.0); Mean Platelet Volume 6.6 fL (7.4-10.4); Platelet Count 274 thou/uL (130-400); RBC Distribution Width 14.7 % (11.5-14.5); Red Blood Cell (RBC) Count 4.32 mill/uL (4.70-6.10); White Blood Cell (WBC) Count 7.2 thou/uL (4.8-10.8)
[2020-01-11 09:48] LABS: INR-International Normal Ratio 0.9; PTT 28.1 sec (22.9-36.1); Prothrombin Time 11.8 sec (12.0-14.7)
[2020-01-11 10:02] LABS: ALT (SGPT) 17 U/L (8-55); AST (SGOT) 28 U/L (5-34); Albumin 3.9 g/dL (3.4-4.8); Alkaline Phosphatase 109 U/L (40-110); Anion Gap 13 mmol/L (10-20); BUN (Urea Nitrogen) 11 mg/dL (8.4-25.7); Bilirubin, Total 0.2 mg/dL (0.2-1.2); CK (CPK) 73 U/L (30-200); Calc. Creatinine Clearance 0 mL/min (70-130); Calcium 9.3 mg/dL (7.8-10.44); Carbon Dioxide 23 mmol/L (23-31); Chloride 105 mmol/L (98-107); Estimated GFR-MDRD Greater than 90; Glucose 115 mg/dL (83-110); Potassium 4.4 mmol/L (3.5-5.1); Protein, Total 6.9 g/dL (5.8-8.1); Sodium 137 mmol/L (136-145)
--- NOTE | 2020-01-11 10:44 | RAD ---
CHEST 1 VIEW: Date: 01/11/2020 HISTORY: Chest pain. COMPARISON: CT examination dated 12/05/2019. X-ray dated 09/28/2019. FINDINGS: Size decrease right upper lobe cavitation. Background emphysema. Scarring in lung bases. No confluent air space consolidation, pneumothorax, or effusion. IMPRESSION: No acute intrathoracic abnormality. POS: HOME
--- NOTE | 2020-01-11 11:09 | CT ---
CT BRAIN WITHOUT CONTRAST: Date: 01/11/2020 HISTORY: Left hand tingling, lung cancer, colon cancer. COMPARISON: 10/01/2019. FINDINGS: Interval development of vasogenic edema is seen in the right parietal lobe with suggestion of a 13.0 mm mass. No evidence of acute infarct, hemorrhage, midline shift, or abnormal extra-axial fluid colle ctions are seen. The ventricular size is appropriate and the basilar cisterns are patent. The bony ca lvarium is intact. The visualized paranasal sinuses and mastoid air cells are well aerated. IMPRESSION: Findings are suspicious for brain metastasis. Further evaluation with contrast enhanced MRI is recomm ended. Discussed over the telephone with Delmy Ponce NP, in the emergency room, at 0959 hours. CODE CR.
[2020-01-11] MEDS ORDERED: Aspirin Chewable 81 MG TAB ONE (12:15)
[2020-01-11 13:16] LABS: Troponin I 0.011 ng/mL (< 0.028)
--- NOTE | 2020-01-11 13:36 | HP ---
PRIMARY CARE PHYSICIAN: Alanis Gill MD REASON FOR ADMISSION: Brain metastasis. HISTORY OF PRESENT ILLNESS: A 79-year-old male, who has metastatic prostate cancer. The patient reports that he is known that he has metastatic prostate cancer and spread it to lung and liver, but he is not sure about brain. He is following Dr. Singh as an outpatient basis and the patient has been treated with chemoradiation. The patient presented to emergency room with left upper extremity weakness for last 10 days and left lower extremity weakness since yesterday. The patient has difficulty using left upper extremity. The patient was dragging leg since yesterday and that is why he decided to come to the hospital for evaluation. The patient does have chronic on and off headache. The patient denies any bone pain. The patient denies any back pain. The patient denies any diplopia or blurred vision, chest pain, or shortness of breath. In the emergency room, the patient had CT brain, which showed findings suggestive of brain metastasis. His chest x-ray was unremarkable. The patient is being admitted for further evaluation. PAST MEDICAL HISTORY: Hypertension, metastatic prostate cancer with lung, liver metastasis treated with chemoradiation, history of colon cancer treated with surgery. PAST SURGICAL HISTORY: Colon surgery, colostomy, MediPort placement. PAST PSYCHIATRIC HISTORY: Anxiety and depression. SOCIAL HISTORY: The patient lives at home. He is former smoker. He drinks beer every day. He denies any other illicit drug abuse. FAMILY HISTORY: No strong family history of premature coronary artery disease, stroke, or cancer. ALLERGIES: PENICILLIN. CURRENT HOME MEDICATION: 1. Gabapentin 600 mg three times daily. 2. Ropinirole 0.5 mg at bedtime. 3. Buprenorphine patch every week. 4. Alprazolam 0.5 mg b.i.d. p.r.n. REVIEW OF SYSTEMS: CONSTITUTIONAL: Negative for weight loss or gain, ability to conduct usual activities. SKIN: Negative for rash, itching. EYES: Negative for double vision, pain. ENT/MOUTH: Negative for nose bleeding, neck stiffness, pain, tenderness. CARDIOVASCULAR: Negative for palpitations, dyspnea on exertion, orthopnea. RESPIRATORY: Negative for shortness of breath, wheezing, cough, hemoptysis, fever or night sweats. GASTROINTESTINAL: Negative for poor appetite, abdominal pain, heartburn, nausea, vomiting, constipation, or diarrhea. GENITOURINARY: Negative for urgency, frequency, dysuria, nocturia. MUSCULOSKELETAL: Negative for pain, swelling. NEUROLOGIC/PSYCHIATRIC: Negative for anxiety, depression. ALLERGY/IMMUNOLOGIC: Negative for skin rash, bleeding tendency. Please see my HPI for pertinent positives and negatives. All other review of systems reviewed and negative except as mentioned in HPI. PHYSICAL EXAMINATION: VITAL SIGNS: Currently, blood pressure 157/72, pulse 84, respiratory rate 20, temperature 97.9, saturation 98% on room air. Weight 61.2 kg. GENERAL: The patient is currently alert, awake, hypertensive. No obvious acute distress. HEENT: Head; normocephalic, atraumatic. Eyes; pupils are round and reactive to light. No nystagmus. Extraocular muscle intact. Oral cavity within normal limits. NECK: Supple. No JVD. No meningeal signs of irritation. LUNGS: Clear to auscultation without any rhonchi or rales. CARDIAC: S1 and S2 regular. No murmur. No gallop. No rub. ABDOMEN: Soft, bowel sounds present, left lower quadrant colostomy bag present. No peritoneal signs. BACK: Examination unremarkable. No point tenderness. EXTREMITIES: Upper extremity; passive movement of all joints are normal. Lower extremity; no edema, good distal pulsation. NEUROLOGIC: The patient is alert and oriented x3. Cranial nerves 2 through 12 intact. Motor 4/5 in left upper extremity as well as left lower extremity, and right side 5/5. Sensation, normal on the right side. Sensation, slightly subjectively reduced on the left side. Reflexes bilaterally symmetrical. Plantar bilateral flexor. No cerebellar signs. SKIN: No skin rash. PSYCHIATRIC: Normal affect. HEMATOLOGIC: No lymphadenopathy. SIGNIFICANT LABORATORY DATA: EKG showing sinus rhythm without any acute ischemic changes. Monitor showing sinus rhythm. CT brain showing vasogenic edema seen in right parietal lobe, 13 mm mass. Chest x-ray based on my review, no acute cardiopulmonary process. CBC; WBC 7.2, hemoglobin 12.9, platelet 274. INR 0.9. BMP; sodium 137, potassium 4.4, chloride 105, carbon dioxide 23, anion gap 13, BUN 11, creatinine 0.73, glucose 115, calcium 9.3. LFT; AST 28, ALT 17, alkaline phosphatase 109, and albumin 3.9. Troponin negative. ASSESSMENT AND PLAN: Impression: 1. Left upper and lower extremity weakness, most likely related with parietal lobe mass with vasogenic edema. The patient will need MRI brain with contrast and we will treat him with Decadron 4 mg IV q.6 hourly. We will consult Neurology. We will also consider Neurosurgery consultation, if needed. The patient will need Oncology evaluation and possibly Radiation Oncology evaluation for considering treatment plan for him. Depending upon MRI finding, we will decide whether we need to consult Neurosurgery and Oncology during this admission or that can be treated as an outpatient basis. We will consider PT, OT evaluation. We will also obtain echocardiography. We will do neuro checks while in hospital. 2. Hypertension. With steroid, his blood pressure expected to get worse and that was why, we will use hydralazine p.r.n. basis and we will start amlodipine 5 mg p.o. daily. We will check lipid profile tomorrow morning and start Lipitor 40 mg p.o. at bedtime. 3. Restless legs syndrome. We will continue ropinirole 0.5 mg p.o. at bedtime. 4. Peripheral neuropathy. We will continue gabapentin 600 mg three times daily. 5. Anxiety disorder. We will continue Xanax 0.5 mg p.o. b.i.d. 6. Deep venous thrombosis prophylaxis, SCD boots. 7. Gastrointestinal prophylaxis. 8. Protonix 40 mg p.o. daily. CODE STATUS: The patient is full code and the patient's daughter is surrogate decision maker. DISPOSITION PLAN: Based on clinical course. Plan of care discussed with the family member and the patient at bedside in the emergency room. Job ID: [id number]
[2020-01-11] MEDS ORDERED: Zolpidem Tartrate 5 MG TAB PO PRN (14:27)
[2020-01-11] MEDS ORDERED: Ondansetron PF 4 MG/2 ML Vial IVP PRN (14:27)
[2020-01-11] MEDS ORDERED: Bisacodyl 10 MG SUPP PR PRN (14:27)
[2020-01-11] MEDS ORDERED: Guaifenesin DM 100-10/5 ML UDCUP PO PRN (14:27)
[2020-01-11] MEDS ORDERED: HYDROcodone/Acetaminophen 5/325 mg Tablet PO PRN (14:27)
[2020-01-11] MEDS ORDERED: Senokot S 8.6-50 MG TAB PO PRN (14:27)
[2020-01-11] MEDS ORDERED: cloNIDine 0.1 MG TAB PO PRN (14:27)
[2020-01-11] MEDS ORDERED: Loratadine 10 MG TAB PO PRN (14:27)
[2020-01-11] MEDS ORDERED: Calcium Carbonate 500 MG ChewTAB PO PRN ×2 (14:27)
[2020-01-11] MEDS ORDERED: Ondansetron ODT 4 MG TAB PO PRN (14:27)
[2020-01-11] MEDS ORDERED: hydrALAZINE 20 MG/ML VIAL SLOW IVP PRN (14:27)
[2020-01-11] MEDS ORDERED: Acetaminophen 325 MG TAB PO PRN (14:27)
[2020-01-11] MEDS ORDERED: Cepastat Lozenges 1 LOZ PO PRN (14:27)
[2020-01-11] MEDS ORDERED: Sodium Chloride 0.65% Nasal 44 ML BOT EA NARE PRN (14:27)
[2020-01-11] MEDS ORDERED: Loperamide HCl 2 MG CAP PO PRN (14:27)
--- NOTE | 2020-01-11 15:24 | CON ---
NEUROLOGY CONSULTATION DATE OF CONSULTATION: 01/11/2020 REASON FOR CONSULTATION: Left-sided weakness. HISTORY OF PRESENT ILLNESS: A 79-year-old male with history significant for metastatic prostatic carcinoma with spread to the lungs and the liver, presented with on and off to 2-week history of left upper extremity weakness. However, since yesterday, he was started dragging his left leg and was unable to walk properly. The patient denies nausea, vomiting, headache, chest pain, blurred vision, diplopia, or shortness of breath associated with this episode. In the emergency room, head CT was done, which showed the finding suggestive of midbrain metastasis. He was admitted for further evaluation. REVIEW OF SYSTEMS: All 10 systems were reviewed and were negative except the pertinent positives and negatives mentioned in HPI. PAST MEDICAL HISTORY: Hypertension, metastatic prostrate carcinoma with spread to the lung, liver, status post chemoradiation, history of colon cancer, status post surgeries. PAST SURGICAL HISTORY: Status post surgery, colostomy, MediPort placement. PAST PSYCHIATRIC HISTORY: Anxiety, depression. SOCIAL HISTORY: Lives at home. Former smoker. Drinks beer on a daily basis. Denies alcohol or illegal drug use. FAMILY HISTORY: No family history of cancer, stroke, or coronary artery disease. ALLERGIES: PENICILLIN. HOME MEDICATIONS: 1. Gabapentin 600 mg three times daily. 2. Ropinirole 0.5 mg at bedtime. 3. Buprenorphine patch every week. 4. Alprazolam 0.5 mg p.r.n. PHYSICAL EXAMINATION: VITAL SIGNS: Blood pressure 150/60, pulse 87, and respiratory rate 18. HEENT: Normocephalic CVS: Regular rate and rhythm. CHEST: Clear. ABDOMEN: Soft. NEUROLOGICAL EXAMINATION: Mental status, the patient is alert and oriented to person, place, and time. Cranial nerves 2 through 12 intact. Motor, muscle tone and bulk are normal. Strength, 4+/5 in the left upper and lower extremities, 5/ 5 in the right upper and lower extremities. Sensation intact on the right, decreased on the left. Reflexes symmetric bilaterally. Toes were downgoing bilaterally. Cerebellar, finger-nose testing intact. Gait deferred due to patient's safety reasons. DATA REVIEWED: I reviewed the CT scan which showed vasogenic edema in the right parietal lobe mass. Labs were reviewed, which were unremarkable. ASSESSMENT AND PLAN: Mr. Rebollar is a 79-year-old male, presented with left upper and lower extremity weakness, most likely secondary to prior to lobe mass with vasogenic edema evident on the CT scan. Recommend MRI of the brain with contrast to better evaluate the lesions. Continue Decadron 4 mg IV q.6 hours to reduce vasogenic edema. Monitor for steroid induced hyperglycemia and steroid induced GERD. Neuro checks every 4 hours. Recommend Radiology and Neurosurgery input once MRI is complete. Continue home medications. Continue medical management per primary team, PT/OT/speech. Continue medical management per primary team. We will continue to follow. Thank you for the consult. Job ID: [id number]
[2020-01-11 15:35] VITALS: BMI 18.8
[2020-01-11 15:48] LABS: Troponin I Less than 0.010 ng/mL (< 0.028)
[2020-01-11] MEDS: Gabapentin 300 MG CAP PO SCH ×2 (16:32→20:35)
[2020-01-11] MEDS: ALPRAZolam 0.5 MG TAB PO PRN ×2 (17:53→23:38)
[2020-01-11] MEDS: Dexamethasone 4 mg/ml Vial SLOW IVP SCH ×2 (17:54→23:38)
[2020-01-11] MEDS ORDERED: Lorazepam 2 MG/ML VIAL ONE (18:05)
[2020-01-11] MEDS: rOPINIRole HCl 0.5 MG TAB PO SCH (20:35)
[2020-01-11] MEDS: Atorvastatin Calcium 40 MG TAB PO SCH (20:36)
[2020-01-12] MEDS: Dexamethasone 4 mg/ml Vial SLOW IVP SCH ×4 (05:37→23:18)
[2020-01-12 06:25] LABS: Cardiac Risk 2.2 (Less than 4.5)
[2020-01-12] MEDS: ALPRAZolam 0.5 MG TAB PO PRN (08:16)
[2020-01-12] MEDS: Amlodipine 5 MG TAB PO SCH (08:17)
[2020-01-12] MEDS: Gabapentin 300 MG CAP PO SCH ×3 (08:18→20:52)
[2020-01-12] MEDS ORDERED: Magnevist 469MG/ML 20 ML VIAL ONE (10:46)
--- NOTE | 2020-01-12 11:28 | MRI ---
MRI BRAIN WITH AND WITHOUT CONTRAST: Date: 01/12/2020 INDICATION: Lung cancer. Evidence of metastatic lesion in the right cerebral hemisphere seen on recent CT. FINDINGS: Mild cortical volume loss. Mild ventriculomegaly consistent with degree of atrophy. Mild chronic ischemic white matter change. No evidence of restricted diffusion. Postcontrast images show a ring enhancing mass in the right posterior frontal lobe cortex with surrou nding vasogenic edema. This measures 2.1 cm AP dimension. There is another 5 mm enhancing nodule in the right periventricular white matter just inferior to the above noted lesion. There is a 1.0 cm ring enhancing nodule in the left periventricular white matter adjacent to the body of the lateral ventricle. The intracranial internal carotid arteries, cerebral arteries, and basilar arteries show flow-voids. Dural venous sinuses are patent. IMPRESSION: There are three ring enhancing masses identified as described above consistent with metastatic lesion s to the brain. The largest is in the posterior right frontal lobe measuring 2.0 cm with moderate anila rounding vasogenic edema. POS: AGW
--- NOTE | 2020-01-12 12:03 | PDOC.HOSPP ---
- Subjective Encounter Date: 01/12/20 Subjective: NEUROLOGY PROGRESS NOTE No acute events overnight. - Objective Vital Signs & Weight: Vital Signs (12 hours) Temp Pulse Pulse Pulse Resp BP BP 01/12/20 11:29 97.5 F L 89 18 01/12/20 08:32 79 79 164/70 H 179/75 H 01/12/20 07:35 97.9 F 89 18 01/12/20 03:58 97.6 F 83 16 BP BP Pulse Ox 01/12/20 11:29 135/68 99 01/12/20 08:32 01/12/20 07:35 156/63 H 98 01/12/20 03:58 146/70 H 97 Weight Weight 135 lb I&O: 01/11/20 01/12/20 01/13/20 06:59 06:59 06:59 Intake Total 1102 Balance 1102 Result Diagrams: 01/11/20 09:30 01/11/20 09:30 Radiology Reviewed by me: Yes EKG Reviewed by me: Yes Hospitalist ROS - Review of Systems Constitutional: denies: fever, chills, sweats, weakness, malaise, other Eyes: denies: pain, vision change, conjunctivae inflammation, eyelid inflammation, redness, other ENT: denies: ear pain, ear discharge, nose pain, nose discharge, nose congestion , mouth pain, mouth swelling, throat pain, throat swelling, other Respiratory: denies: cough, dry, shortness of breath, hemoptysis, SOB with excertion, pleuritic pain, sputum, wheezing, other Cardiovascular: denies: chest pain, palpitations, orthopnea, paroxysmal noc. dyspnea, edema, light headedness, other Gastrointestinal: denies: nausea, vomiting, abdominal pain, diarrhea, constipation, melena, hematochezia, other Genitourinary: denies: dysuria, frequency, incontinence, hematuria, retention, other Skin: denies: rash, lesions, sourav, bruising, other Neurological: denies: weakness, numbness, incoordination, change in speech, confusion, seizures, other - Medication Medications: Active Medications Generic Name Dose Route Start Last Admin Trade Name Freq PRN Reason Stop Dose Admin Acetaminophen 650 mg 01/11/20 14:27 01/11/20 16:34 Tylenol PO 650 mg Q4H PRN Administration Headache/Fever/Mild Pain (1-3) Alprazolam 0.5 mg 01/11/20 14:27 01/12/20 08:16 Xanax PO 0.5 mg BIDPRN PRN Administration Anxiety/Agitation Amlodipine Besylate 5 mg 01/12/20 09:00 01/12/20 08:17 Norvasc PO 5 mg DAILY CHANCE Administration Atorvastatin Calcium 40 mg 01/11/20 21:00 01/11/20 20:36 Lipitor PO 40 mg HS CHANCE Administration Dexamethasone 4 mg 01/11/20 18:00 01/12/20 05:37 Decadron SLOW IVP 4 mg Q6HR CHANCE Administration Gabapentin 600 mg 01/11/20 15:00 01/12/20 08:18 Neurontin PO 600 mg TID CHANCE Administration Hydralazine HCl 10 mg 01/11/20 14:27 01/11/20 16:32 Apresoline SLOW IVP 10 mg Q4H PRN Administration SBP > 180 and HR < 70 Pantoprazole Sodium 40 mg 01/12/20 09:00 01/12/20 08:17 Protonix PO 40 mg DAILY CHANCE Administration Ropinirole HCl 0.5 mg 01/11/20 21:00 01/11/20 20:35 Requip PO 0.5 mg HS CHANCE Administration - Exam General Appearance: awake alert Eye: PERRL ENT: normocephalic atraumatic Neck: supple Heart: RRR Respiratory: CTAB Gastrointestinal: soft Extremities: no cyanosis Skin: normal turgor Neurological: cranial nerve grossly intact, normal sensation to touch, no weakness, no focal deficits, no new deficit Musculoskeletal: normal tone, normal strength, no muscle wasting Psychiatric: normal affect, normal behavior, A&O x 3, oriented to person, oriented to place, oriented to time Hosp A/P (1) Brain lesion Code(s): G93.9 - DISORDER OF BRAIN, UNSPECIFIED Status: Acute (2) Alcohol abuse Code(s): F10.10 - ALCOHOL ABUSE, UNCOMPLICATED Status: Acute (3) Colon cancer Code(s): C18.9 - MALIGNANT NEOPLASM OF COLON, UNSPECIFIED Status: Acute (4) Mass of upper lobe of right lung Code(s): R91.8 - OTHER NONSPECIFIC ABNORMAL FINDING OF LUNG FIELD Status: Acute (5) Prostate cancer Code(s): C61 - MALIGNANT NEOPLASM OF PROSTATE Status: Acute (6) Protein-calorie malnutrition, moderate Code(s): E44.0 - MODERATE PROTEIN-CALORIE MALNUTRITION Status: Acute (7) Right upper lobe pneumonia Code(s): J18.9 - PNEUMONIA, UNSPECIFIED ORGANISM Status: Acute - Plan 79 year old male with prostrate cancer admitted with an episode of left upper and lower extremity weakness which is now resolved. HCT suspicious for metastatic brain lesions. Clinically stable with no focal deficits. MRI Brain with contrast reviewed which showed three ring enhancing metastatic lesions. Recommend neurosurgery and rad-onc input. Neurochecks every 4 hours. Continue home medications. Continue medical management per primary team.
--- NOTE | 2020-01-12 12:11 | PDOC.HOSPP ---
- Subjective Encounter Date: 01/12/20 Encounter Time: 11:45 Subjective: f/u for brain neoplasms noted on CT/MRI imaging. c/o LUE/LLE weakness and lack of coordination x 2 weeks. Hx of prostate/colon CA. - Objective Vital Signs & Weight: Vital Signs (12 hours) Temp Pulse Pulse Pulse Resp BP BP 01/12/20 11:29 97.5 F L 89 18 01/12/20 08:32 79 79 164/70 H 179/75 H 01/12/20 07:35 97.9 F 89 18 01/12/20 03:58 97.6 F 83 16 BP BP Pulse Ox 01/12/20 11:29 135/68 99 01/12/20 08:32 01/12/20 07:35 156/63 H 98 01/12/20 03:58 146/70 H 97 Weight Weight 135 lb I&O: 01/11/20 01/12/20 01/13/20 06:59 06:59 06:59 Intake Total 1102 Balance 1102 Result Diagrams: 01/11/20 09:30 01/11/20 09:30 Radiology Reviewed by me: Yes (MRI brain - 3 ring-enhancing lesions likely metastatic ca) EKG Reviewed by me: Yes (Tele - SR) Hospitalist ROS - Medication Medications: Active Medications Generic Name Dose Route Start Last Admin Trade Name Freq PRN Reason Stop Dose Admin Acetaminophen 650 mg 01/11/20 14:27 01/11/20 16:34 Tylenol PO 650 mg Q4H PRN Administration Headache/Fever/Mild Pain (1-3) Alprazolam 0.5 mg 01/11/20 14:27 01/12/20 08:16 Xanax PO 0.5 mg BIDPRN PRN Administration Anxiety/Agitation Amlodipine Besylate 5 mg 01/12/20 09:00 01/12/20 08:17 Norvasc PO 5 mg DAILY CHANCE Administration Atorvastatin Calcium 40 mg 01/11/20 21:00 01/11/20 20:36 Lipitor PO 40 mg HS CHANCE Administration Dexamethasone 4 mg 01/11/20 18:00 01/12/20 05:37 Decadron SLOW IVP 4 mg Q6HR CHANCE Administration Gabapentin 600 mg 01/11/20 15:00 01/12/20 08:18 Neurontin PO 600 mg TID CHANCE Administration Hydralazine HCl 10 mg 01/11/20 14:27 01/11/20 16:32 Apresoline SLOW IVP 10 mg Q4H PRN Administration SBP > 180 and HR < 70 Pantoprazole Sodium 40 mg 01/12/20 09:00 01/12/20 08:17 Protonix PO 40 mg DAILY CHANCE Administration Ropinirole HCl 0.5 mg 01/11/20 21:00 01/11/20 20:35 Requip PO 0.5 mg HS CHANCE Administration - Exam General Appearance: NAD, awake alert Eye: PERRL, anicteric sclera ENT: normocephalic atraumatic, no oropharyngeal lesions Neck: supple, symmetric, no JVD, no thyromegaly, no lymphadenopathy Heart: RRR, no murmur, no gallops, no rubs, normal peripheral pulses Heart - other findings: S1, S2 Respiratory: CTAB, no wheezes, no rales, no ronchi, normal chest expansion Gastrointestinal: soft, non-tender, non-distended, normal bowel sounds, no palpable masses Extremities: no cyanosis, no clubbing, no edema Skin: normal turgor, no lesions Neurological - other findings: LUE/LLE weakness compared to R Musculoskeletal: normal tone, generalized weakness Psychiatric: normal affect, A&O x 3 Hosp A/P (1) Brain metastases Code(s): C79.31 - SECONDARY MALIGNANT NEOPLASM OF BRAIN Status: Acute Plan: Consult Medical/Radiation oncology for further recommendations, continue Decadron 4mg IV q6h, consult Neurosurgery (2) Left hemiparesis Code(s): G81.94 - HEMIPLEGIA, UNSPECIFIED AFFECTING LEFT NONDOMINANT SIDE Status: Acute Plan: PT/OT, see #1 above, fall risk precautions (3) Hypertension Code(s): I10 - ESSENTIAL (PRIMARY) HYPERTENSION Status: Chronic Qualifiers: Hypertension type: essential hypertension Qualified Code(s): I10 - Essential (primary) hypertension Plan: Confirm home BP regimen, PRN Hydralazine, serial monitoring (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
[2020-01-12] MEDS ORDERED: ALPRAZolam 0.5 MG TAB PO PRN (12:19)
--- NOTE | 2020-01-12 15:08 | EKG ---
Test Reason : Blood Pressure : / mmHG Vent. Rate : 073 BPM Atrial Rate : 073 BPM P-R Int : 170 ms QRS Dur : 076 ms QT Int : 384 ms P-R-T Axes : 079 -14 061 degrees QTc Int : 423 ms Normal sinus rhythm Normal ECG Confirmed by AIDA RAMIREZ, WANDA ([id number]), editorial clerk BEKA SHAH ([id number]) on 01/12/2020 3:08:03 PM Referred By: Confirmed By:WANDA PARRA MD
[2020-01-12] MEDS ORDERED: Prevnar 13-Val Conj/PF 0.5 ML SYRINGE IM ONE (15:45)
[2020-01-12] MEDS: rOPINIRole HCl 0.5 MG TAB PO SCH (20:52)
[2020-01-12] MEDS: Atorvastatin Calcium 40 MG TAB PO SCH (20:52)
[2020-01-13] MEDS: Dexamethasone 4 mg/ml Vial SLOW IVP SCH ×4 (05:40→23:41)
[2020-01-13] MEDS: Amlodipine 5 MG TAB PO SCH (08:53)
[2020-01-13] MEDS: Gabapentin 300 MG CAP PO SCH ×3 (08:54→21:53)
[2020-01-13] MEDS ORDERED: BUPRENORPHINE 10 MCG/HR TD SCH (14:45)
--- NOTE | 2020-01-13 15:11 | PDOC.HOSPP ---
- Subjective Encounter Date: 01/13/20 Encounter Time: 15:10 Subjective: f/u for brain metastatic process on Dexamethasone. Feels better overall and moving LUE better. - Objective Vital Signs & Weight: Vital Signs (12 hours) Temp Pulse Resp BP BP Pulse Ox 01/13/20 11:04 98.0 F 70 16 158/70 H 99 01/13/20 07:22 98.2 F 95 18 140/79 98 01/13/20 03:48 97.7 F 84 20 158/70 H 99 Weight Admit Weight 135 lb Weight 135 lb I&O: 01/12/20 01/13/20 01/14/20 06:59 06:59 06:59 Intake Total 1102 1454 Balance 1102 1454 Result Diagrams: 01/11/20 09:30 01/11/20 09:30 Radiology Reviewed by me: Yes (Echo = EF 55-60%, mild MR/TR, + diast dysfxn) EKG Reviewed by me: Yes (Tele = SR) Hospitalist ROS - Medication Medications: Active Medications Generic Name Dose Route Start Last Admin Trade Name Freq PRN Reason Stop Dose Admin Acetaminophen 650 mg 01/11/20 14:27 01/11/20 16:34 Tylenol PO 650 mg Q4H PRN Administration Headache/Fever/Mild Pain (1-3) Alprazolam 0.5 mg 01/12/20 12:19 01/12/20 16:16 Xanax PO 0.5 mg Q8H PRN Administration Anxiety Amlodipine Besylate 5 mg 01/12/20 09:00 01/13/20 08:53 Norvasc PO 5 mg DAILY CHANCE Administration Atorvastatin Calcium 40 mg 01/11/20 21:00 01/12/20 20:52 Lipitor PO 40 mg HS CHANCE Administration Dexamethasone 4 mg 01/11/20 18:00 01/13/20 11:36 Decadron SLOW IVP 4 mg Q6HR CHANCE Administration Gabapentin 600 mg 01/11/20 15:00 01/13/20 14:37 Neurontin PO 600 mg TID CHANCE Administration Hydralazine HCl 10 mg 01/11/20 14:27 01/11/20 16:32 Apresoline SLOW IVP 10 mg Q4H PRN Administration SBP > 180 and HR < 70 Pantoprazole Sodium 40 mg 01/12/20 09:00 01/13/20 08:54 Protonix PO 40 mg DAILY CHANCE Administration Ropinirole HCl 0.5 mg 01/11/20 21:00 01/12/20 20:52 Requip PO 0.5 mg HS CHANCE Administration - Exam General Appearance: NAD, awake alert Eye: PERRL, anicteric sclera ENT: normocephalic atraumatic, no oropharyngeal lesions Neck: supple, symmetric, no JVD, no thyromegaly, no lymphadenopathy Heart: RRR, no gallops, no rubs, normal peripheral pulses Heart - other findings: S1, S2 Respiratory: CTAB, no wheezes, no rales, no ronchi, normal chest expansion, no tachypnea Gastrointestinal: soft, non-tender, non-distended, normal bowel sounds, no palpable masses Extremities: no cyanosis, no clubbing, no edema Skin: normal turgor, no lesions Neurological: cranial nerve grossly intact, no new deficit Neurological - other findings: LUE weakness Musculoskeletal: normal tone, generalized weakness Psychiatric: normal affect, A&O x 3 Hosp A/P (1) Brain metastases Code(s): C79.31 - SECONDARY MALIGNANT NEOPLASM OF BRAIN Status: Acute Plan: Consulted Neurosurgery/Medical/Rad oncology regarding course of action, continue Dexamethasone, ? 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
--- NOTE | 2020-01-13 19:55 | CON ---
DATE OF CONSULTATION: 01/13/2020 HISTORY OF PRESENT ILLNESS: Mr. Rebollar is a 79-year-old male with a history of metastatic colon cancer as well as limited stage small cell lung cancer treated by me several years ago, who presented with a 2 week complaint of left hand weakness. He had noticed that he had knocked something off a countertop approximately 2 weeks ago and this seemed to progress with his left hand. He then noticed walking into [place] that he was dragging his left foot and he was stumbling a bit. This progressed and his family recommended on the day of admission that he come to the emergency room. In the emergency room, he was noted to be weak on the left and brain CT suggested findings on the right side of the brain. Brain MRI done within the admission showed 3 ring-enhancing masses. The largest measuring 2.1 cm in the right posterior frontal lobe, all on the right side. These were consistent with metastatic disease to the brain. He was started on dexamethasone. He states today he feels much better. His left hand strength is improved almost to its baseline. He is not noticing any left leg weakness. 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 He is feeling very much better on the steroids. He is eating and has a good appetite. He denies any issues with appetite or weight loss as an outpatient. No fevers or chills. He did have a bad case of the shingles approximately 4 months ago and still complains of some mild left thoracic chest wall pain, because of the shingles. PAST MEDICAL HISTORY: 1. History of metastatic colorectal cancer, currently on a chemotherapy holiday. 2. 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 3. Hypertension. CURRENT MEDICATIONS: 1. Tylenol p.r.n. 2. [place] p.r.n. 3. Xanax p.r.n. 4. Norvasc 5 mg p.o. daily. 5. Lipitor 40 mg p.o. at bedtime. 6. Dulcolax 10 mg p.o. daily p.r.n. 7. Tums 1000 mg p.o. q.4 hours p.r.n. 8. Clonidine 0.1 mg p.o. q.4 hours p.r.n. 9. Decadron 4 mg IV q.6 hours. 10. Neurontin 600 mg p.o. t.i.d. for neuropathy from the shingles. 11. Robitussin p.r.n. 12. Hydralazine p.r.n. 13. Imodium 2 mg p.o. daily p.r.n. 14. Claritin 10 mg p.o. daily p.r.n. 15. Zofran 4 mg p.o. q.6 hours p.r.n. 16. Protonix 40 mg p.o. daily. 17. Ropinirole 0.5 mg p.o. at bedtime. 18. Senokot 2 tabs p.o. b.i.d. p.r.n. 19. Cidra nasal spray p.r.n. 20. Ambien 5 mg p.o. at bedtime p.r.n. ALLERGIES: PENICILLIN. SOCIAL HISTORY: He lives in the [place] area with his and he has several supportive family members. He denies tobacco or alcohol use. FAMILY HISTORY: Noncontributory. REVIEW OF SYSTEMS: Otherwise 10-point review of systems is negative. PHYSICAL EXAMINATION: VITAL SIGNS: Temperature 98, pulse 70, respirations 16, O2 saturation 99% on room air. GENERAL: He is sitting up in the bed in no acute distress, watching television. HEENT: Extraocular muscles are intact. Pupils are reactive to light. He has no oral cavity lesions. He does have poor dentition. NECK: Supple without lymphadenopathy. CARDIOVASCULAR: Decreased breath sounds bilaterally consistent with COPD. ABDOMEN: Hypoactive bowel sounds. Soft. He has a colostomy bag in place with brown soft stool, nontender. EXTREMITIES: No edema. LABORATORY DATA: White blood cell count 7.2, hemoglobin 12.9, platelets 274. INR 0.9. All of his chemistries are normal with exception of glucose at 115. Serum total protein 6.9, albumin 3.9. IMAGIN. MRI of the brain done on this admission shows 3 ring-enhancing lesion including 1 in the posterior right frontal lobe measuring 2.1 cm with surrounding vasogenic edema. The other 2 are 5 mm and 1.0 cm respectively, these are consistent with metastatic disease to the brain. ASSESSMENT: Mr. Rebollar is a 79-year-old male with: 1. Metastatic brain lesions, symptomatic, but responding to steroids. 2. History of metastatic colorectal cancer. 3. History of limited stage small-cell lung cancer thought to be in remission. PLAN: 1. I discussed with him that these are either from the small-cell lung cancer or the colon cancer. The likeliest thing might be colon cancer given that he has metastatic disease, however, colon cancer, rarely goes to the brain. Likewise, he did have high-risk small-cell lung cancer, but prior to this time has not mentioned a metastatic disease. Regardless, the treatment is radiation. We will discuss with Dr. Almanzar, if he needs a biopsy of these spots for treatment decision making. 2. Continue dexamethasone, I would recommend transitioning this to p.o. 4 mg q.6 hours so that he can be discharged home. 3. Ultimately, he will need radiation as an outpatient and he will go home within the next 24 hours. 4. He will need palliative chemotherapy following the radiation. He has been off and on chemotherapy for metastatic colon cancer over the last several years. Ultimately, a pathologic diagnosis of these brain metastases would be helpful for decision-making going far, but I will discuss with Dr. Almanzar before I recommend neurosurgical consultation. Job ID: [id number]
[2020-01-13] MEDS: Atorvastatin Calcium 40 MG TAB PO SCH (21:53)
[2020-01-13] MEDS: rOPINIRole HCl 0.5 MG TAB PO SCH (21:53)
[2020-01-14] MEDS: Dexamethasone 4 mg/ml Vial SLOW IVP SCH (06:31)
[2020-01-14] MEDS: Amlodipine 5 MG TAB PO SCH (09:43)
[2020-01-14] MEDS: Gabapentin 300 MG CAP PO SCH (09:43)
[2020-01-14] MEDS ORDERED: Dexamethasone 4 MG TAB PO SCH (10:00)
[2020-01-14 11:31] VITALS: BP 177/75; TEMP 97.6
--- NOTE | 2020-01-14 12:51 | PDOC.HOSPP ---
- Subjective Encounter Date: 01/14/20 Subjective: NEUROLOGY PROGRESS NOTE No acute events overnight. - Objective Vital Signs & Weight: Vital Signs (12 hours) Temp Pulse Resp BP BP Pulse Ox 01/14/20 11:28 97.6 F 76 16 177/75 H 96 01/14/20 07:20 98.2 F 76 16 156/65 H 97 01/14/20 04:00 97.5 F L 73 16 152/67 H 97 Weight Admit Weight 135 lb Weight 135 lb I&O: 01/13/20 01/14/20 01/15/20 06:59 06:59 06:59 Intake Total 1454 920 838 Balance 1454 920 838 Result Diagrams: 01/11/20 09:30 01/11/20 09:30 Radiology Reviewed by me: Yes EKG Reviewed by me: Yes Hospitalist ROS - Review of Systems Constitutional: denies: fever, chills, sweats, weakness, malaise, other Eyes: denies: pain, vision change, conjunctivae inflammation, eyelid inflammation, redness, other ENT: denies: ear pain, ear discharge, nose pain, nose discharge, nose congestion , mouth pain, mouth swelling, throat pain, throat swelling, other Respiratory: denies: cough, dry, shortness of breath, hemoptysis, SOB with excertion, pleuritic pain, sputum, wheezing, other Cardiovascular: denies: chest pain, palpitations, orthopnea, paroxysmal noc. dyspnea, edema, light headedness, other Gastrointestinal: denies: nausea, vomiting, abdominal pain, diarrhea, constipation, melena, hematochezia, other Genitourinary: denies: dysuria, frequency, incontinence, hematuria, retention, other Musculoskeletal: denies: neck pain, shoulder pain, arm pain, back pain, hand pain, leg pain, foot pain, other Skin: denies: rash, lesions, sourav, bruising, other - Medication Medications: Active Medications Generic Name Dose Route Start Last Admin Trade Name Freq PRN Reason Stop Dose Admin Acetaminophen 650 mg 01/11/20 14:27 01/11/20 16:34 Tylenol PO 650 mg Q4H PRN Administration Headache/Fever/Mild Pain (1-3) Alprazolam 0.5 mg 01/12/20 12:19 01/12/20 16:16 Xanax PO 0.5 mg Q8H PRN Administration Anxiety Amlodipine Besylate 5 mg 01/12/20 09:00 01/14/20 09:43 Norvasc PO 5 mg DAILY CHANCE Administration Atorvastatin Calcium 40 mg 01/11/20 21:00 01/13/20 21:53 Lipitor PO 40 mg HS CHANCE Administration Dexamethasone 4 mg 01/14/20 10:00 01/14/20 09:43 Decadron PO 4 mg Q6H CHANCE Administration Gabapentin 600 mg 01/11/20 15:00 01/14/20 09:43 Neurontin PO 600 mg TID CHANCE Administration Hydralazine HCl 10 mg 01/11/20 14:27 01/11/20 16:32 Apresoline SLOW IVP 10 mg Q4H PRN Administration SBP > 180 and HR < 70 Pantoprazole Sodium 40 mg 01/12/20 09:00 01/14/20 09:43 Protonix PO 40 mg DAILY CHANCE Administration Buprenorphine 10 Mcg 1 each 01/13/20 14:45 01/13/20 17:40 /Hr Transdermal TD 1 each Patch Q7D CHANCE Administration Ropinirole HCl 0.5 mg 01/11/20 21:00 01/13/20 21:53 Requip PO 0.5 mg HS CHANCE Administration - Exam General Appearance: awake alert Eye: PERRL, anicteric sclera ENT: normocephalic atraumatic, no oropharyngeal lesions Neck: supple Heart: RRR Respiratory: CTAB Gastrointestinal: soft Extremities: no cyanosis, no clubbing, no edema Skin: normal turgor, no lesions, no rashes Neurological: cranial nerve grossly intact, normal sensation to touch, no weakness, no new deficit Neurological - other findings: left sided weakness resolved Musculoskeletal: normal tone, normal strength, no muscle wasting Psychiatric: normal affect, normal behavior, A&O x 3, oriented to person, oriented to place, oriented to time Hosp A/P (1) Brain lesion Code(s): G93.9 - DISORDER OF BRAIN, UNSPECIFIED Status: Acute (2) Alcohol abuse Code(s): F10.10 - ALCOHOL ABUSE, UNCOMPLICATED Status: Acute (3) Colon cancer Code(s): C18.9 - MALIGNANT NEOPLASM OF COLON, UNSPECIFIED Status: Acute (4) Mass of upper lobe of right lung Code(s): R91.8 - OTHER NONSPECIFIC ABNORMAL FINDING OF LUNG FIELD Status: Acute (5) Prostate cancer Code(s): C61 - MALIGNANT NEOPLASM OF PROSTATE Status: Acute (6) Protein-calorie malnutrition, moderate Code(s): E44.0 - MODERATE PROTEIN-CALORIE MALNUTRITION Status: Acute (7) Right upper lobe pneumonia Code(s): J18.9 - PNEUMONIA, UNSPECIFIED ORGANISM Status: Acute - Plan PT/OT, out of bed/ambulate 79 year old male with prostrate cancer admitted with an episode of left upper and lower extremity weakness which is now resolved. Clinically stable with no focal deficits. MRI Brain with contrast reviewed which showed three ring enhancing metastatic lesions. Patient seen by his primary oncologist yesterday and will be scheduled for radiation therapy as outpatient. Neurochecks every 4 hours. Continue home medications. Continue medical management per primary team. No further recommendations from neurology perspective
--- NOTE | 2020-01-14 18:37 | CON ---
DATE OF CONSULTATION: 01/14/2020 REASON FOR CONSULTATION: Mr. 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 HISTORY OF PRESENT ILLNESS: Mr. Rebollar is known to me. In the summer, he was diagnosed with a limited stage, clinical stage IIIA, T2b N2 M0 small cell carcinoma of the right upper lobe of the lung. In workup for that, he was then subsequently diagnosed with an adenocarcinoma of the sigmoid colon. He was started on chemotherapy and also underwent a sigmoid colectomy. Pathology from the sigmoid colon was a pathological stage IIIB, T3 N1c M0 lesion. He was treated with concurrent chemoradiotherapy for his lung cancer with his radiation for his lung cancer completed in June 2016. Since that time, he has been followed. He has not been felt to have recurrence of a small cell carcinoma of the lung. In May 2017, he was found to have recurrent adenocarcinoma at the anastomosis of the sigmoid colon and was being considered for surgery. At the time of surgery, he was found to have diffuse peritoneal metastasis and a near obstructing lesion, and therefore, was treated with a diverting loop colostomy. He has been on chemotherapy off and on since that time under the direction of Dr. Singh. He had some progression of his disease, but more recently was felt to have responding disease with decrease in size of his pelvic masses. About 6 months ago, he was diagnosed with shingles and had some difficulty with that, although more recently this is under better control since seeing Pain Management. For about the past 2 weeks, Mr. Rebollar states he noticed some slow onset of left arm weakness. About 2 days prior to admission, he also noticed he was having some left leg weakness. Subsequently on Tuesday, he came to the emergency room, where he underwent a CT scan of the head that suggested possible brain metastasis. He was started on steroids and he underwent an MRI of the brain on 01/12/2020. This showed 3 lesions in the brain. One was in the right posterior frontal lobe, measured 2.1 cm with surrounding vasogenic edema. Just inferior to that was a second 5-mm enhancing nodule. There was a 1-cm ring-enhancing lesion on the left side near the body of the left ventricle. No other disease was seen. Since being admitted to the hospital and started on steroids, his weakness has improved and he is basically back to normal. He is not having pain and denies any headaches at the present time. Apparently, he was having some headaches prior to starting the steroids. He denies any shortness of breath or difficulty with his bowel movements. He voices no other complaints. PAST MEDICAL HISTORY: 1. Small cell carcinoma of the lung as mentioned above. 2. Sigmoid colon cancer as mentioned above. 3. Hypertension. 4. COPD. 5. GE reflux disease with history of GI bleed. 6. Prostate cancer. 7. 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 8. He denies other medical or surgical problems. MEDICATIONS: 1. Xanax p.r.n. 2. Norvasc. 3. Lipitor. 4. Dulcolax. 5. Tums p.r.n. 6. Clonidine p.r.n. 7. Neurontin. 8. Robitussin p.r.n. 9. Decadron. 10. Protonix. ALLERGIES: PENICILLIN, WHICH CAUSED SWELLING IN THE PAST. SOCIAL HISTORY: He lives with his in [place], [place]. He used to smoke 2 to 3 packs of cigarettes per day until age 54, but has not smoked since that time. He also drinks alcohol on occasions. He is retired. FAMILY HISTORY: His brother of cancer, the primary site unknown to the patient. There is no other family history of malignancy. REVIEW OF SYSTEMS: 12-system review of systems is otherwise negative. PHYSICAL EXAMINATION: VITAL SIGNS: Height 5 feet 11 inches and weight 135 pounds. Blood pressure is 177/75, pulse is 76, respirations are 16, temperature is 97.6, and O2 saturation is 96%. CONSTITUTIONAL: He is alert and oriented and in no apparent distress. He is well developed and well nourished. Karnofsky performance status is 80%. HEENT: Eyes, pupils are equal, round, and reactive to light. Extraocular movements are intact. ENT; oral cavity and oropharynx are normal without lesion or erythema. Palate elevates symmetrically. Gingiva is intact. NECK: Supple without cervical or supraclavicular adenopathy. No thyromegaly. Larynx midline. LUNGS: Breathing nonlabored. Clear to auscultation and percussion. CARDIOVASCULAR: Heart, regular rate and rhythm without murmur. No lower extremity edema. BACK: No tenderness on fist percussion of his spine. LYMPHATIC: No axillary or inguinal adenopathy. ABDOMEN: Soft, nontender, and nondistended without mass or hepatosplenomegaly. Liver percusses to normal size. Colostomy is functioning well in the left lower quadrant. SKIN: Without rash or purpura. NEUROLOGIC: Cranial nerves 2 through 12 are grossly intact. Motor strength is 5/5 in both upper and lower extremities in all muscle groups tested. Reflexes are normal and symmetrical. Gait is normal. RADIOLOGIC DATA: MRI of the brain was personally reviewed. Again, he has 3 contrast-enhancing lesions. One is in the posterior right frontal lobe and measures slightly more than 2 cm. There is a 5-mm lesion just inferior to that. Adjacent to the left mid ventricular area is a 1-cm ring-enhancing parenchymal lesion. There is some surrounding vasogenic edema, especially on the right side. There is no other suspicious lesion identified. LABORATORY DATA: CBC revealed a white blood cell count of 7200 with a hemoglobin of 12.9, hematocrit of 40.3, and platelet count of 274,000. Chemistry group showed creatinine of 0.73. Electrolytes were otherwise normal. ASSESSMENT: Mr. Rebollar is a 79-year-old gentleman with brain metastasis from his malignancy. I think this is most likely brain metastasis from metastatic colon cancer, which he has previously been diagnosed rather than his previous small cell carcinoma of the lung, which was treated in 2016. Certainly, metastasis from the lung cannot be entirely excluded, but I think clinically given that he has had a several-year history of metastatic colon cancer, I think this is the most likely primary site. In the end, the treatment is going to be the same, so it does not make in my opinion that much difference between the two sites. PLAN: I had a long discussion with Mr. Rebollar and his regarding his diagnosis, prognosis, prognostic factors, and treatment options. I do not think we need to biopsy the brain lesions. I do not think this is going to change our treatment course, so I think that we can just proceed with treatment. Again, whether this is from the colon or whether this is from the lung, I think treatment is going to be the same. I do think it is most likely colon cancer. I would recommend that we treat him with radiosurgery. The logistics of radiation as well as the benefits and risk of treatment were discussed. The simulation and daily treatment procedure were discussed. Side effects would include, but not be limited to skin reaction, fatigue, lower blood counts, headache, nausea, vomiting, and small risk of damage to his normal brain, which could cause difficulty with memories or even motor weakness or paralysis. Time was taken to answer all their questions regarding their treatment options. He is agreeable to proceed with radiation as recommended to him. We will make arrangements for him to begin his radiation therapy in the very near future as an outpatient. I have coordinated this with the hospitalist doctor, and from my perspective, he is suitable for discharge. He should be discharged on Decadron 4 mg t.i.d. and the stomach acid protection medicine like Pepcid or Protonix. Thank you for this interesting consultation. Job ID: [id number]
--- NOTE | 2020-01-15 00:44 | DIS ---
DATE OF ADMISSION: 01/11/2020 DATE OF DISCHARGE: 01/14/2020 DISCHARGE DIAGNOSES: 1. Metastatic brain neoplasm. No pathology available. 2. Left hemiparesis, improved. 3. Hypertension, stable. 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 5. History of colon and lung cancer. CONSULTATIONS: 1. Dr. Singh with Medical Oncology Service. 2. Dr. Sohan Almanzar with Radiation Oncology Service. 3. Dr. Romero with Neurology Service. PERTINENT LABORATORY AND X-RAY FINDINGS: Complete metabolic profile within normal limits. Troponin I negative x3. CBC showed a white blood cell count of 7.2, hemoglobin 13, hematocrit 40, and platelet count 274 with 75% neutrophils. CT of the brain without contrast dated 01/11/2020, showed vasogenic edema in the right parietal lobe with suggestion of mass. MRI of the brain dated 01/12/2020, showed three ring-enhancing masses consistent with metastatic process. Largest in the posterior right frontal lobe measuring 2 cm with moderate surrounding vasogenic edema. Portable chest x-ray dated 01/11/2020 showed no acute cardiopulmonary process. 2D transthoracic echocardiogram dated 01/12/2020 showed ejection fraction of 55% to 60%. Diastolic dysfunction noted. Mild mitral and tricuspid regurgitation noted. HOSPITAL COURSE: The patient initially presented with left upper and lower extremity hemiparesis with initial CT imaging of the brain showing questionable brain neoplasm. The patient underwent subsequent MRI imaging showing three ring-enhancing masses suspicious for metastatic process. Consultation was obtained by the Medical Oncology, Neurology, and Radiation Oncology Service with recommendations for initiation of outpatient radiation therapy. The patient received IV dexamethasone with overall symptomatic improvement and resolution of the left hemiparesis. The patient overall remained clinically stable during the hospital course, converting from IV dexamethasone to oral option for discharge. I have examined the patient at the time of discharge and discussed followup instructions. The patient verbalized understanding and agreement ready for discharge on 01/14/2020. DISCHARGE MEDICATIONS: 1. Dexamethasone 4 mg p.o. q.6 hours. 2. Xanax 0.5 mg p.o. b.i.d. 3. Buprenorphine one patch transdermally q.7 days. 4. Gabapentin 600 mg p.o. t.i.d. 5. Ropinirole 0.5 mg p.o. at bedtime. 6. Protonix 40 mg p.o. daily. FOLLOWUP: The patient may follow up with his primary care provider, Dr. Alanis Gill. The patient will follow up with Dr. Sohan Almanzar with Radiation Oncology Service. The patient will follow up with Dr. Tessy Singh with Medical Oncology Service. The patient may follow up with Dr. Neville Lucero within 2 weeks of discharge. CONDITION ON DISCHARGE: Stable. ACTIVITY: Ad-kristie. DIET: Heart healthy. CODE STATUS: Full. DISPOSITION: Home, 01/14/2020. TIME SPENT: Total time preparing and coordinating discharge, 36 minutes. Job ID: [id number]
== END 2020-01-14 13:11 | disposition home or self-care (01) | DRG 54 ==
LOC: ERS 09:17 → 2SE 12:10 → OBSVTOIN 12:10
PROVIDERS: ADMIT Internal Medicine; ATTEND Internal Medicine
PROC: 3E0234Z Introduction of Serum, Toxoid and Vaccine into Muscle, Percutaneous Approach (ICD-10-PCS; principal; 2020-01-12)
DX: C79.31 Secondary malignant neoplasm of brain (principal); G93.6 Cerebral edema; J18.9 Pneumonia, unspecified organism; G81.94 Hemiplegia, unspecified affecting left nondominant side; E44.0 Moderate protein-calorie malnutrition; Z68.1 Body mass index [BMI] 19.9 or less, adult; B02.23 Postherpetic polyneuropathy; I10 Essential (primary) hypertension; I08.1 Rheumatic disorders of both mitral and tricuspid valves; G25.81 Restless legs syndrome; F41.9 Anxiety disorder, unspecified; F32.9 Major depressive disorder, single episode, unspecified; F10.10 Alcohol abuse, uncomplicated; K21.9 Gastro-esophageal reflux disease without esophagitis; J44.9 Chronic obstructive pulmonary disease, unspecified; Z88.0 Allergy status to penicillin; Z85.038 Personal history of other malignant neoplasm of large intestine; Z85.118 Personal history of other malignant neoplasm of bronchus and lung; Z85.46 Personal history of malignant neoplasm of prostate; Z92.21 Personal history of antineoplastic chemotherapy; Z92.3 Personal history of irradiation; Z87.891 Personal history of nicotine dependence; Z85.05 Personal history of malignant neoplasm of liver; Z79.899 Other long term (current) drug therapy; Z23 Encounter for immunization
CPT/HCPCS: 36415; 36416; 70450; 70553; 71045; 80053; 80061; 82550; 84484; 85025; 85610; 85730; 90471; 90670; 93005; 93306; 94760; 96374; A9579; G0009; J0360; J1100; J1642; J2060; J8540

== ENCOUNTER 2020-02-05 11:14 | Outpatient (CLI) | payer MEDICARE, BC ==
--- NOTE | 2020-02-05 12:11 | CT ---
EXAM: CT chest, abdomen, and pelvis with IV contrast: HISTORY: Malignant neoplasm of overlapping sites of right bronchus and lung. History of colon cancer. COMPARISON: 12/05/2019 FINDINGS: CT THORAX: Lungs: The right upper lobe/right apical cavitary lesion is again seen with similar appearance and si ze to prior exam. Degree of wall thickness and fluid within this cavitary lesion is stable. Emphysematous changes are again seen within the lungs bilaterally. There are subtle groundglass densi ties again seen in the left upper lobe. Previously seen ground glass density in the right lower lobe is no longer seen. No new discrete pulmonary nodule or mass is identified. Calcified granuloma i n the right upper lobe is again seen. Pleura: No pleural effusion. Lymph nodes: No lymphadenopathy. Mediastinum: Vascular calcifications are seen in the coronary arteries and involving the thoracic aor ta. A right internal jugular vein Mediport catheter is noted in place and unchanged in position. Chest wall: No abnormalities CT ABDOMEN AND PELVIS: Liver: Previously seen hypodense lesion in the dome of the liver in hepatic segment 8 is again seen b ut has enlarged when compared to the prior study with previous measurement of 1.6 cm. This lesion now measures 2.4 cm. No new hepatic lesion is identified. Gallbladder: Within normal limits. Pancreas: Within normal limits. Spleen:Splenic granuloma is again present. Adrenal glands: Within normal limits. Kidneys: Within normal limits. Urinary Bladder: Mass effect on the posterior inferior aspect of the urinary bladder secondary to an enlarged lobulated prostate gland. Prostate gland measures 6.9 cm in transverse dimensions. Minimal thickening anterior wall urinary bladder more superiorly is present. This is present on the prior exa m but has improved, and some this apparent thickening may be related to incomplete distention. Bowel: Loops colostomy is again present. Loops of small bowel are normal in caliber. Small to moderat e amount retained fecal material seen in the region of the ascending colon and at the hepatic flexure. In the sigmoid colon, there is what appears to be a masslike density measuring 2.9 cm which has a lobulated appearance. This is seen on prior studies but larger in size on today's exam. This structure measured approximately 1.7 cm on study 06/20/2019, but on today's exam measures 2.9 cm. Thomas cifications are present in this region and this is also site of presumed colonic anastomosis. However, mass in this region cannot be excluded. Direct visualization is suggested. Adenopathy:No lymphadenopathy within the abdomen or pelvis. Peritoneum: No free intraperitoneal gas or fluid collection seen in the abdomen or pelvis. Minimal st randing is seen in the urinary bladder and distal sigmoid colon. This is nonspecific. Abdominal wall: Small fat-containing umbilical hernia with colostomy in the epigastric region. Osseous structures: No suspicious lytic or sclerotic osseous lesions are identified. Healing left ant erior sixth, seventh, and eighth rib fractures and probable healing right lateral eighth rib fractures are noted. Previously seen gas in the epidural space and involving the intercostal venous p lara has resolved. IMPRESSION: 1. Postoperative changes of the colon with loop colostomy the epigastric region and anastomosis in th e region of the sigmoid colon. However, in the sigmoid colon, there is a lobulated masslike density present. While this is present on prior exams, this is larger in size and is just distal to the regio n of the presumed colonic anastomosis. Mass lesion in this region cannot be excluded. Direct visualization is recommended. 2. Overall stable cavitary lesion right upper lobe and right lung apex with similar appearance of the gupta of this cavitary structure. 3. Chronic lung changes with evidence of COPD. Minimal patchy areas of groundglass density are seen i n the left upper lobe similar to prior study which could be related to alveolitis. 4. Interval enlargement of the hypodense lesion hepatic segment 8 which is likely related to minimal enlargement of a solitary hepatic metastatic lesion. No new hepatic lesion is identified.
[2020-02-05] MEDS ORDERED: Iopamidol-370 76% 500 ML 1 ML ONE (13:45)
== END 2020-02-05 11:15 | disposition home or self-care (01) ==
LOC: BICCT 11:14
PROVIDERS: ATTEND Internal Medicine Hematology & Oncology
DX: C34.81 Malignant neoplasm of overlapping sites of right bronchus and lung (principal); C18.7 Malignant neoplasm of sigmoid colon; J44.9 Chronic obstructive pulmonary disease, unspecified; J98.4 Other disorders of lung; K76.9 Liver disease, unspecified; C78.7 Secondary malignant neoplasm of liver and intrahepatic bile duct; Z93.3 Colostomy status; Z98.890 Other specified postprocedural states
CPT/HCPCS: 71260; 74177; 80053; 82248; 83615; 84100; 84550; Q9967

== ENCOUNTER 2020-03-05 11:14 | Outpatient (CLI) | payer MEDICARE, BC ==
[~2020-03-05 11:14] MED LIST changes: -ISOVUE-370 76%-LOCM 1 ML ONE; +Magnevist 469MG/ML 20 ML VIAL ONE
--- NOTE | 2020-03-05 13:36 | MRI ---
MRI BRAIN WITH AND WITHOUT CONTRAST: Date: 03/05/2020 INDICATINO: Colon cancer with brain metastasis. Status post XRT. Restaging. Comparison made to MRI of brain of 01/12/2020. FINDINGS: There has been improvement in the ring enhancing lesions when compared to the recent study. The large st lesion, which is a ring enhancing mass in the posterior right frontal lobe, is again seen, but is smaller today. This mass measures approximately 1.5 cm maximal dimension in axial plane. Previous axi al measurements were up to 2.2 cm. The vasogenic edema associated with this lesion is also decreased. The ring enhancing lesion seen in the right periventricular white matter on prior studies is smaller today. This tiny ring enhancing lesion today measures approximately 3.0 mm axial plane. It previously measured 5-6 mm. The ring enhancing lesion in the left periventricular white matter is also smaller today. It measures approximately 8.0 mm. It previously measured approximately 10.0 mm. No new enhancing mass identified. No other interval change. IMPRESSION: Enhancing masses which have been previously described are again seen but are smaller today as noted [place]. The surrounding edema has decreased. POS: [facility]
== END 2020-03-05 11:15 | disposition home or self-care (01) ==
LOC: MRI 11:14
PROVIDERS: ATTEND Radiology Radiation Oncology
DX: C18.9 Malignant neoplasm of colon, unspecified (principal); C79.31 Secondary malignant neoplasm of brain
CPT/HCPCS: 70553

== ENCOUNTER 2020-05-09 10:20 | Emergency (ER) | payer MEDICARE, BC ==
--- NOTE | 2020-05-09 11:07 | RAD ---
XR Chest 1 View Portable HISTORY: Shortness of breath, history of right lung cancer COMPARISON: 01/11/2020 FINDINGS: The heart size is normal. The lungs are well expanded without focal areas of consolidation, pneumothorax or pleural effusions. The masslike density in the right upper lobe shows interval improvement. Right-sided Port-A-Cath remains in place. IMPRESSION: No radiographic evidence of acute cardiopulmonary process.
[2020-05-09 11:25] LABS: ALT (SGPT) 19 U/L (8-55); AST (SGOT) 21 U/L (5-34); Albumin 3.8 g/dL (3.4-4.8); Alkaline Phosphatase 123 U/L (40-110); Anion Gap 16 mmol/L (10-20); BUN (Urea Nitrogen) 30 mg/dL (8.4-25.7); Bilirubin, Total 0.4 mg/dL (0.2-1.2); Calc. Creatinine Clearance 0 mL/min (70-130); Calcium 9.6 mg/dL (7.8-10.44); Carbon Dioxide 26 mmol/L (23-31); Chloride 96 mmol/L (98-107); Estimated GFR-MDRD 73; Globulin 3.5 g/dL (2.4-3.5); Glucose 188 mg/dL (83-110); Potassium 4.1 mmol/L (3.5-5.1); Protein, Total 7.3 g/dL (5.8-8.1); Sodium 134 mmol/L (136-145)
[2020-05-09 11:29] LABS: Hemoglobin 11.5 g/dL (14.0-18.0); Mean Corpuscular HGB CONC 32.5 g/dL (32.0-36.0); Mean Corpuscular Volume 95.5 fL (78.0-98.0); Mean Platelet Volume 7.2 fL (7.4-10.4); Platelet Count 243 thou/uL (130-400); RBC Distribution Width 15.5 % (11.5-14.5); Red Blood Cell (RBC) Count 3.72 mill/uL (4.70-6.10); White Blood Cell (WBC) Count 5.6 thou/uL (4.8-10.8)
[2020-05-09 11:31] LABS: Base Excess-Venous 1.4 mmol/L (-2.0 to 3.0); Bicarbonate (HCO3v) 26.2 mmol/L (22.0-28.0); CO2 Tension (PvCO2) 41.3 mmHg (40.0-50.0); Calcium, Ionized 1.12 mmol/L (See Comments:); Chloride 98 mmol/L (98-107); Hemoglobin - Calc 11.4 g/dL (14.0-18.0); Potassium 3.8 mmol/L (3.5-5.1); Sodium 134 mmol/L (138-145); T. Carbon Dioxide 27.5 mmol/L (22.0-28.0); vO2 Saturation-calc 82.3 % (60.0-85.0)
[2020-05-09 11:34] LABS: Anisocytosis SLIGHT = 6-15 cells (100X) (0-5/hpf); Band 16 % (5-11); Lymphocytes 3 % (21-51); MDiff Complete? YES; Monocytes 1 % (0-10); Neutrophil 80 % (42-75); Platelet Morphology Comment Appears Adequate; Toxic Granulation SLIGHT; Vacuoles SLIGHT
[2020-05-09] MEDS ORDERED: Morphine 4 MG/ML VIAL ONE (11:40)
--- NOTE | 2020-05-09 12:14 | CT ---
CT ABDOMEN AND PELVIS PERFORMED WITH CONTRAST ENHANCEMENT: Date: 05/09/2020 HISTORY: Abdominal pain and swelling. Difficulty urinating x2 weeks. History of neoplasm of right bronchus and lung, and history of colon cancer. COMPARISON: 02/05/2020 study. FINDINGS: The lung bases are clear of any infiltrative process. No pulmonary nodules are identified. Hypodense mass seen within the right lobe of the liver measures 2.3 cm in size, stable. The spleen an d pancreas, as well as gallbladder regions appear unremarkable. Right and left adrenal glands are normal. Right and left kidneys are normal in size. Bilateral hydron ephrosis is related to a markedly distended bladder. Prostate is markedly enlarged. There is no signi ficant periaortic or mesenteric adenopathy. There is a loop colostomy again noted just to the left of midline. Some soft tissue fullness which is just proximal to an anastomotic suture line in the sigmoid region is a similar finding to the prior examination. Some minimal perirectal fat stranding is present. No significant pelvic lymphadenopathy. No free fluid. IMPRESSION: 1. Bilateral hydronephrosis associated with a very markedly distended bladder, probably on the basis of bladder outlet obstruction related to a markedly enlarged prostate. 2. Loop colostomy. Once again, there is soft tissue fullness which is near the anastomotic suture li ne in the sigmoid colon. This could just be postoperative in nature. A mass is not totally excluded. It does appear somewhat less prominent than it did on the previous study. 3. Stable appearance to a right lobe hypodense liver mass. POS: [facility] [place]
[2020-05-09 12:18] LABS: Bacteria/HPF None Seen HPF (None Seen); Bilirubin Negative (Negative); Blood, Urine Negative (Negative); Clarity Clear (Clear); Glucose, Urine (Dipstick) 50 mg/dL (Negative); Ketone, Urine Negative (Negative); Leukocyte Negative Leu/uL (Negative); Mucous/LPF 1+ LPF (<2+); Nitrite Negative (Negative); Protein, Urine (Dipstick) 50 mg/dL (Neg-Trace); RBC/HPF 0-3 HPF (0-3); Specific Gravity, Urine 1.024 (1.002-1.036); Squamous Epithelial None Seen HPF (0-3); Urobilinogen Normal mg/dL (Less than 2)
[2020-05-09] MEDS ORDERED: cefTRIAXone\\ROCEPHIN 1 GM VIAL ONE (12:34)
[2020-05-09] MEDS ORDERED: Iopamidol-370 76% 500 ML 1 ML ONE (13:20)
== END 2020-05-09 14:30 | disposition short-term general hospital (02) ==
LOC: ERS 10:20
DX: N40.1 Benign prostatic hyperplasia with lower urinary tract symptoms (principal); R33.8 Other retention of urine; I10 Essential (primary) hypertension; Z87.891 Personal history of nicotine dependence; Z79.899 Other long term (current) drug therapy
CPT/HCPCS: 36415; 71045; 74177; 80053; 81003; 81015; 82330; 82803; 83605; 83880; 85025; 87040; 87077; 87086; 87149; 87186; J0696; J1642; J2270

== ENCOUNTER 2020-05-10 08:32 | Inpatient (IN) | payer MEDICARE, BC, OTHER ==
[2020-05-10] MEDS ORDERED: Morphine 4 MG/ML VIAL ONE ×2 (09:28→13:33)
[2020-05-10 09:33] LABS: #Lymphocytes 0.6 thou/uL (1.20-3.40); #Monocytes 0.1 thou/uL (0.11-0.59); #Neutrophils 2.6 thou/uL (1.40-6.50); %Basophils 0.9 % (0.0-1.0); %Eosinophils 0.2 % (0.0-10.0); %Lymphocytes 16.5 % (21.0-51.0); %Monocytes 3.9 % (0.0-10.0); %Neutrophils 78.5 % (42.0-75.0); Hemoglobin 10.1 g/dL (14.0-18.0); Mean Corpuscular HGB CONC 31.7 g/dL (32.0-36.0); Mean Corpuscular Hemoglobin 30.7 pg (27.0-31.0); Mean Corpuscular Volume 96.9 fL (78.0-98.0); Platelet Count 187 thou/uL (130-400); RBC Distribution Width 15.5 % (11.5-14.5); Red Blood Cell (RBC) Count 3.27 mill/uL (4.70-6.10); White Blood Cell (WBC) Count 3.3 thou/uL (4.8-10.8)
[2020-05-10] MEDS ORDERED: Vancomycin HCl 1.75 GM in Sodium Chloride 0.9% 500 ML IVPB SCH ×2 (09:45→13:00)
[2020-05-10 10:20] LABS: ALT (SGPT) 21 U/L (8-55); AST (SGOT) 17 U/L (5-34); Alkaline Phosphatase 117 U/L (40-110); Anion Gap 19 mmol/L (10-20); BUN (Urea Nitrogen) 17 mg/dL (8.4-25.7); Bilirubin, Total 0.5 mg/dL (0.2-1.2); Calc. Creatinine Clearance 0 mL/min (70-130); Calcium 8.3 mg/dL (7.8-10.44); Carbon Dioxide 20 mmol/L (23-31); Chloride 100 mmol/L (98-107); Estimated GFR-MDRD Greater than 90; Globulin 2.8 g/dL (2.4-3.5); Glucose 113 mg/dL (83-110); Potassium 3.5 mmol/L (3.5-5.1); Protein, Total 5.8 g/dL (5.8-8.1); Sodium 135 mmol/L (136-145)
[2020-05-10 10:26] LABS: Bacteria/HPF None Seen HPF (None Seen); Bilirubin Negative (Negative); Blood, Urine 3+ (Negative); Clarity Turbid (Clear); Glucose, Urine (Dipstick) Normal (Negative); Ketone, Urine Negative (Negative); Leukocyte 250 Leu/uL (Negative); Mucous/LPF 1+ LPF (<2+); Nitrite Negative (Negative); Protein, Urine (Dipstick) 100 mg/dL (Neg-Trace); RBC/HPF Greater than 50 HPF (0-3); Specific Gravity, Urine 1.015 (1.002-1.036); Squamous Epithelial 0-3 HPF (0-3); Urobilinogen Normal mg/dL (Less than 2)
[2020-05-10 10:42] LABS: CKMB 1.1 ng/mL (0-6.6)
[2020-05-10] MEDS ORDERED: Cefepime 2 GM VIAL ONE (11:18)
[2020-05-10] MEDS ORDERED: Sodium Chloride 0.9% 1,000 ML IV SCH (11:30)
[2020-05-10 12:37] LABS: Troponin I 0.043 ng/mL (< 0.028)
[2020-05-10 12:45] LABS: Analyzer IN Cardio ER; Base Excess (BEa) -0.8 mEq/L (-2.0 to +3.0); CO2 Tension 29.9 mmHg (35.0-45.0); Carboxyhemoglobin (COHb) 0.3 gm% (0.0-3.0); Hemoglobin (Hb) 10.1 g/dL (14.0-18.0); O2 Tension (PaO2), arterial 63.4 mmHg (> 70.0); Potassium - ABG Lab 3.42 mmol/L (3.70-5.30); pH, Arterial 7.48 (7.35-7.45)
[2020-05-10] MEDS ORDERED: Vancomycin 1 GM in Premix Bag 1 BAG IVPB SCH (12:45)
[2020-05-10 12:47] LABS: ALV-art Gradient 255.725 mmHg (0-20); Puncture Site RRA
--- NOTE | 2020-05-10 14:01 | RAD ---
PA AND LATERAL CHEST: 05/10/20 HISTORY: Cough. COMPARISON: Prior day's exam. Heart size is within normal limits. Right sided Mediport catheter remains in place. Right upper lobe pleural and parenchymal changes are again noted. There is some cavitary change associated with this. This has been seen on the previous exam. Small air fluid levels appears to be present on today's stud y. IMPRESSION: Right upper lobe pleural and parenchymal lung changes with some cavitary changes. Appears to be a sma ll fluid level associated with some of the cavitary change. POS: OFF
[2020-05-10] MEDS: Ipratropium Bromide 2.5 ml Neb NEB SCH ×3 (15:03→22:20)
[2020-05-10] MEDS: Sodium Chloride 0.9% 1,000 ML IV SCH (15:42)
--- NOTE | 2020-05-10 16:20 | HP ---
CHIEF COMPLAINT: Fevers. HISTORY OF PRESENT ILLNESS: The patient is a 79-year-old male with past medical history of hypertension; primary colon cancer, status post resection and colostomy; prostate cancer; metastatic disease to lung, liver, and brain, treated with chemotherapy and brain radiation. The patient presented to the hospital yesterday with urinary retention. A Castelan catheter was placed and the patient was discharged home after cultures were obtained. He returns today with complaints of fever and shaking. His cultures from yesterday are now showing growth of Pseudomonas aeruginosa in the blood. Urine cultures are not showing any growth so far. He was also found to be leukopenic and his lactic acid was elevated at 4.4. At the time of my assessment, the patient was complaining of feeling cold and he was shaking in the bed. He complains also of lower abdominal pain. Castelan catheter is in place. REVIEW OF SYSTEMS: Negative except as noted in HPI. PAST MEDICAL HISTORY: As noted above. PAST SURGICAL HISTORY: Includes colon resection with colostomy. SOCIAL HISTORY: The patient denies alcohol use, illicit drug use, and he is a former smoker. ALLERGIES: THE PATIENT IS ALLERGIC TO PENICILLINS. FAMILY HISTORY: Noncontributory for this presentation. PHYSICAL EXAMINATION: GENERAL: The patient is ill-appearing and hard of hearing. HEENT: His head is normocephalic and atraumatic. Extraocular muscles are intact. NECK: Supple. CHEST: Auscultation revealed tachycardia with regular rhythm. No murmurs or rubs. Auscultation of the chest reveals clear sounds bilaterally. ABDOMEN: Soft and mildly tender. Colostomy appears to be pink and healthy with some stool in the bag. EXTREMITIES: Peripheral edema. NEUROLOGICAL: Negative for focal deficits. ASSESSMENT: 1. Severe sepsis. 2. Pseudomonas bacteremia. 3. Pyelonephritis. 4. Lactic acidosis. 5. Elevated troponin level, likely due to sepsis and demand ischemia. 6. Mild hyponatremia. 7. Leukopenia. 8. History of metastatic cancer to the lung, brain, and liver. 9. Primary colon and prostate cancer. PLAN: The patient will be admitted to the intensive care unit. We will start aggressive management with IV hydration and broad-spectrum antibiotics, vancomycin and cefepime according to sepsis protocol. Repeat lactic acid level after a couple of hours. The source of infection is likely his urine, given the appearance of his urine and the positive markers in his urinalysis. We will await the final sensitivity data on the Pseudomonas in his blood. The patient's condition is unstable at this time and thus will be managed in the ICU. Lovenox for DVT prophylaxis. Troponin elevation is likely due to demand ischemia, but we will trend the levels nonetheless. Code status is full according to the patient and his family. Job ID: [id number]
--- NOTE | 2020-05-10 17:42 | CON ---
DATE OF CONSULTATION: 05/10/2020 This is 70 minutes time, of that time, greater than 50% of the time was spent with the patient and/or the patient's unit in the hospital. REASON FOR CONSULTATION: Urosepsis. HISTORY OF PRESENT ILLNESS: The patient is a pleasant 79-year-old male, who is accompanied to the hospital by his [id number]. He was apparently in yesterday with urinary retention. He had some cultures drawn, which are now growing out Pseudomonas. I am not sure whether he was called back to the ER or came back on his own fruition. In any event, he is being admitted because of the urosepsis. I do not find any documentation of the patient being hypotensive. There were somewhat concerned about his respiratory status and he is now on high-flow oxygen. PAST MEDICAL HISTORY: 1. Metastatic colorectal cancer. He has just received his latest dose of chemotherapy, which was tolerated poorly. 2. History of limited-stage small cell lung cancer. 3. Prostate cancer in the past. 4. Hypertension. 5. Restless legs syndrome. 6. COPD. PAST SURGICAL HISTORY: 1. He had bronchoscopy with diagnosis of lung cancer by Dr. Knox in 2016. 2. Colonoscopy. 3. Colostomy. SOCIAL HISTORY: Quit smoking many years ago. Does not consume alcohol. Lives at home. MEDICATIONS: 1. Gabapentin 300 mg three times daily. 2. Amlodipine 10 mg daily. 3. Furosemide 80 mg daily. 4. Pantoprazole 40 mg daily. 5. Pepcid AC 10 mg twice daily. 6. Megace 400 mg daily. 7. Buprenorphine 10 mcg patch daily. 8. Lortab 10 mg every 6 hours as needed. REVIEW OF SYSTEMS: Remarkable for weakness. PHYSICAL EXAMINATION: VITAL SIGNS: Temperature 99.5, pulse 117, blood pressure 118/63, and O2 saturation 100% on high-flow nasal cannula. GENERAL: He awakens easily. Does not appear to be in any obvious distress. HEENT: Remarkable for bitemporal wasting. He has mucositis. NECK: No adenopathy or JVD. LUNGS: Clear. He has MediPort present in the right upper quadrant of his chest. CARDIAC: S1 and S2, regular. ABDOMEN: Soft and nontender. He has a colostomy in left lower quadrant, which has full stool. EXTREMITIES: No clubbing or cyanosis. He has muscle wasting, but no edema. LABORATORY DATA: Sodium 135, potassium 3.5, chloride 100, CO2 of 20, BUN 17, creatinine 0.7, and glucose 113. ABG, pH of 7.48, pCO2 of 29, pO2 of 63, on 50% high-flow. White blood cell count 3.3, hematocrit 31.7, and platelet count 187. Urinalysis showed 11 to 20 white blood cells, and again cultures are growing out Pseudomonas. ASSESSMENT: 1. Urosepsis. 2. Acute hypoxic respiratory failure. 3. Metastatic colorectal cancer. 4. History of prostate cancer. 5. History of small cell cancer. PLAN: The patient has been fluid resuscitated. He has been started on cefepime and vancomycin. Additionally, I will add Levaquin and double cover the Pseudomonas since I would suspect possible resistance. He will be maintained on high-flow oxygen. His labs will be monitored. At the current time, he does not need to be intubated. I would discourage intubation and mechanical ventilation as his prognosis is quite poor. Job ID: [id number]
[2020-05-10] MEDS: Gabapentin 300 MG CAP PO SCH ×3 (18:01→22:04)
[2020-05-10] MEDS: Aluminum & Magnesium Hydroxide 60 ML, Lidocaine 2% Viscous Solution 30 ML, diphenhydrAM... SSW PRN ×2 (21:00→23:08)
[2020-05-10] MEDS: rOPINIRole HCl 0.5 MG TAB PO SCH (21:34)
[2020-05-10] MEDS: ALPRAZolam 0.5 MG TAB PO SCH ×2 (21:34→22:04)
[2020-05-10] MEDS: Vancomycin 1 GM in Premix Bag 1 BAG IVPB SCH (22:31)
[2020-05-10] MEDS: Cefepime 1 GM in Sodium Chloride 0.9% 100 ML IVPB SCH (23:08)
[2020-05-11] MEDS: Ipratropium Bromide 2.5 ml Neb NEB SCH ×3 (02:16→10:32)
[2020-05-11] MEDS: Sodium Chloride 0.9% 1,000 ML IV SCH ×2 (03:45→15:48)
[2020-05-11 04:21] LABS: Anion Gap 15 mmol/L (10-20); BUN (Urea Nitrogen) 17 mg/dL (8.4-25.7); Calc. Creatinine Clearance 85 mL/min (70-130); Calcium 7.6 mg/dL (7.8-10.44); Carbon Dioxide 21 mmol/L (23-31); Chloride 102 mmol/L (98-107); Estimated GFR-MDRD Greater than 90; Glucose 83 mg/dL (83-110); Potassium 3.4 mmol/L (3.5-5.1); Sodium 135 mmol/L (136-145)
[2020-05-11 04:27] LABS: Band 30 % (5-11); Hemoglobin 9.5 g/dL (14.0-18.0); Hypochromia SLIGHT = 6-15 cells (100X) (0-5/hpf); Lymphocytes 26 % (21-51); MDiff Complete? YES; Mean Corpuscular HGB CONC 32.3 g/dL (32.0-36.0); Mean Platelet Volume 7.4 fL (7.4-10.4); Monocytes 14 % (0-10); Neutrophil 30 % (42-75); Platelet Count 133 thou/uL (130-400); Platelet Morphology Comment Appears Adequate; RBC Distribution Width 15.2 % (11.5-14.5); Red Blood Cell (RBC) Count 3.05 mill/uL (4.70-6.10); White Blood Cell (WBC) Count 1.5 thou/uL (4.8-10.8)
[2020-05-11] MEDS: Aluminum & Magnesium Hydroxide 60 ML, Lidocaine 2% Viscous Solution 30 ML, diphenhydrAM... SSW PRN ×4 (04:36→21:48)
[2020-05-11] MEDS: Hydrocodone-Acetamin 15 ML UDCUP PO PRN ×2 (07:36→22:30)
[2020-05-11] MEDS ORDERED: FLU VACC QS2020-21(65YR UP)/PF 240 MCG/0.7 ML SYRINGE IM ONE (09:00)
[2020-05-11] MEDS: ALPRAZolam 0.5 MG TAB PO SCH ×2 (09:11→20:14)
[2020-05-11] MEDS: Gabapentin 300 MG CAP PO SCH ×4 (09:11→20:14)
[2020-05-11] MEDS ORDERED: PROVENTIL INHALER 6.7 G (200 INHALATIONS) INH PRN (09:55)
[2020-05-11] MEDS ORDERED: Potassium Chloride 20 MEQ TAB PO SCH (10:30)
[2020-05-11] MEDS: Vancomycin 1 GM in Premix Bag 1 BAG IVPB SCH ×2 (10:59→22:33)
--- NOTE | 2020-05-11 10:59 | PRG ---
DATE OF SERVICE: 05/11/2020 SUBJECTIVE: He is awake, alert, in much better spirits compared to yesterday. OBJECTIVE: VITAL SIGNS: Temperature 99.8, pulse 102, blood pressure 116/59, O2 saturation 100%. 24-hour intake 1519 and output 970. HEENT: Unremarkable. NECK: No JVD. LUNGS: Clear. CARDIAC: S1 and S2. Regular. ABDOMEN: Stool in his colostomy. EXTREMITIES: Trace edema. LABORATORY DATA: White blood cell count 1.5, hemoglobin 9.5, hematocrit 29.3, and platelet count 133. Sodium 135, potassium 3.4, chloride 102, CO2 of 21, BUN 17, creatinine 0.6, glucose 83. ASSESSMENT: Urosepsis from Pseudomonas - culture and sensitivities are pending. The patient appears to be responding to the cefepime and Levaquin. PLAN: The patient can be taken off the high-flow oxygen and transferred to the floor. He will continue antibiotic therapy. Job ID: [id number]
[2020-05-11] MEDS: Cefepime 1 GM in Sodium Chloride 0.9% 100 ML IVPB SCH (12:56)
[2020-05-11 13:22] LABS: SARS-CoV-2 MS2 Positive; SARS-CoV-2 N Gene Negative; SARS-CoV-2 S Gene Negative; SARS-CoV-2 by NAA Not Detected (NotDetected); SARS-CoV-2 orf1ab Negative
--- NOTE | 2020-05-11 17:23 | PDOC.HOSPP ---
- Subjective Encounter Date: 05/11/20 Encounter Time: 13:05 Subjective: Pt has no complaints, he looks chr ill though. Daughter in law is at bedroom, who says pt has Met prostate cancer and is currently undergoing chemo. Last chemo was last week and next chemo was scheduled for this Tuesday. - Objective Vital Signs & Weight: Vital Signs (12 hours) Temp Pulse Resp BP Pulse Ox 05/11/20 15:20 98.9 F 102 H 16 135/62 99 05/11/20 15:00 98.0 F 05/11/20 12:00 100 05/11/20 08:00 100 05/11/20 07:03 108 H 24 H Weight Weight 141 lb 1.533 oz Most Recent Monitor Data Heart Rate from ECG 101 NIBP 151/73 NIBP BP-Mean 99 Respiration from ECG 21 SpO2 100 I&O: 05/10/20 05/11/20 05/12/20 06:59 06:59 06:59 Intake Total 1519 400 Output Total 970 510 Balance 549 -110 Result Diagrams: 05/11/20 03:33 05/11/20 03:33 Hospitalist ROS - Review of Systems Constitutional: reports: weakness, malaise ENT: reports: mouth pain, other (mouth lesion) Neurological: reports: weakness - Medication Medications: Active Medications Generic Name Dose Route Start Last Admin Trade Name Freq PRN Reason Stop Dose Admin Hydrocodone Bitart/Acetaminophen 20 ml 05/11/20 06:53 05/11/20 07:36 Hydrocodone-Acetamin 15 Ml Udcup PO 20 ml Q6H PRN Administration Pain Alprazolam 0.5 mg 05/10/20 21:00 05/11/20 09:11 Alprazolam 0.5 Mg Tab PO 0.5 mg BID CHANCE Administration Al Hydroxide/Mg Hydroxide 60 0 ml 05/10/20 19:31 05/11/20 15:47 ml/ Lidocaine HCl 30 ml/ SSW 10 ml Diphenhydramine HCl 75 mg PRN PRN Administration Mouth Irritation Gabapentin 600 mg 05/10/20 15:00 05/11/20 15:51 Gabapentin 300 Mg Cap PO Not Given TID CHANCE Cefepime HCl 1 gm/ Sodium 100 mls @ 200 mls/hr 05/11/20 00:00 05/11/20 12:56 Chloride IVPB 100 mls 0000,1200 CHANCE Administration Vancomycin HCl 1 gm/ Device 200 mls @ 200 mls/hr 05/10/20 23:00 05/11/20 10:59 IVPB 200 mls 1100,2300 CHANCE Administration Sodium Chloride 1,000 mls @ 75 mls/hr 05/10/20 11:45 05/11/20 15:48 Normal Saline 0.9% IV 1,000 mls .[id number] CHANCE Administration Levofloxacin 750 mg/ Device 150 mls @ 100 mls/hr 05/11/20 10:00 05/11/20 09:14 IVPB 150 mls 1000 CHANCE Administration Pantoprazole Sodium 40 mg 05/11/20 09:00 05/11/20 09:11 Pantoprazole 40 Mg Tab PO 40 mg DAILY CHANCE Administration Ropinirole HCl 0.5 mg 05/10/20 21:00 05/10/20 21:34 Ropinirole Hcl 0.5 Mg Tab PO Not Given HS CHANCE - Exam General Appearance: ill appearing Eye: PERRL, anicteric sclera ENT: normocephalic atraumatic, dry oral mucosa (mouth lesion noted on left upper lip) Neck: supple, symmetric, no JVD, no thyromegaly Heart: RRR, no murmur, no gallops, no rubs Respiratory: CTAB, no wheezes, no rales, no ronchi Gastrointestinal: soft, non-tender, non-distended, normal bowel sounds Gastrointestinal - other findings: Colostomy bag noted Extremities: no cyanosis, no clubbing Skin: normal turgor, no lesions Neurological: cranial nerve grossly intact, no focal deficits Neurological - other findings: Pt looks weak Musculoskeletal: normal tone, generalized weakness Psychiatric: A&O x 3, lethargic Hosp A/P (1) Urine retention Code(s): R33.9 - RETENTION OF URINE, UNSPECIFIED Status: Acute Plan: S/p [place] insertion. Will consult Urology. (2) Bacteremia due to Gram-negative bacteria Code(s): R78.81 - BACTEREMIA Status: Acute Plan: Cx is positive for Psuedomonas. Will cont current abx. (3) UTI (urinary tract infection) Status: Acute Qualifiers: Urinary tract infection type: site unspecified Hematuria presence: without hematuria Qualified Code(s): N39.0 - Urinary tract infection, site not specified Plan: Likely cause of bacteremia Cont current abx. F/u with urine cx results. (4) Leucopenia Code(s): D72.819 - DECREASED WHITE BLOOD CELL COUNT, UNSPECIFIED Status: Acute Plan: S/p recent chemo. Pt may need Neulasta. Will monitor WBC for now. Consult Onc tmr if WBC cont to drop. (5) Brain metastases Code(s): C79.31 - SECONDARY MALIGNANT NEOPLASM OF BRAIN Status: Acute Plan: s/p Radiation (6) Prostate cancer Code(s): C61 - MALIGNANT NEOPLASM OF PROSTATE Status: Acute Plan: With mets to brain, colon, lungs. Pt is s/p recent chemo. Should f/u w his oncol ogist after d/c . (7) Sepsis Code(s): A41.9 - SEPSIS, UNSPECIFIED ORGANISM Status: Acute Qualifiers: Sepsis type: Pseudomonas Plan: Cont current abx (8) Thrombocythemia Status: Acute Plan: Likely due to Cancer. Monitor for now. (9) Anemia Code(s): D64.9 - ANEMIA, UNSPECIFIED Status: Chronic Plan: Likely due to Chr disease from met cancer. Will monitor for now. (10) COPD (chronic obstructive pulmonary disease) Status: Chronic Plan: No sign of exacerbation, give nebs as needed. (11) Aspiration into airway Code(s): T17.908A - UNSP FB IN RESP TRACT, PART UNSP CAUSING OTH INJURY, INIT Status: Acute Plan: Seen by Speech therapy and is aspirating. Will keep NPO for now. MBS ordered for tmr. - Plan DVT proph w/SCDs, GI proph PPx: PPI and SCDs. CODE: Full, but pt had recently expressed desire for DNR. He has no POA identified yet. and Son are alive and aware of his illness. Palliative care has been consulted. Will f/u with outcome of their visit. Dispo: Cont current mgt.
[2020-05-11] MEDS ORDERED: Megestrol Acetate 800 MG/20 ML UDCUP PO PRN (17:59)
[2020-05-11] MEDS ORDERED: Hydrocodone-Acetamin 15 ML UDCUP PO PRN (18:18)
[2020-05-11 19:07] LABS: Band 40 % (5-11); Eosinophils 2 % (0-10); Hemoglobin 9.1 g/dL (14.0-18.0); Lymphocytes 12 % (21-51); MDiff Complete? YES; Mean Corpuscular HGB CONC 32.1 g/dL (32.0-36.0); Mean Corpuscular Volume 96.7 fL (78.0-98.0); Mean Platelet Volume 8.1 fL (7.4-10.4); Metamyelocyte 4 % (0-0); Monocytes 5 % (0-10); Myelocyte 1 % (0-0); Neutrophil 34 % (42-75); Nucleated RBC 1 % (0); Platelet Count 115 thou/uL (130-400); Platelet Morphology Comment Appears Decreased; RBC Morphology Normal; Reactive Lymphocytes 2 % (0-10); Red Blood Cell (RBC) Count 2.93 mill/uL (4.70-6.10); Toxic Granulation SLIGHT; White Blood Cell (WBC) Count 2.4 thou/uL (4.8-10.8)
[2020-05-11] MEDS: Famotidine 20 MG TAB PO SCH (20:14)
[2020-05-11] MEDS: rOPINIRole HCl 0.5 MG TAB PO SCH (20:14)
[2020-05-12] MEDS: Cefepime 1 GM in Sodium Chloride 0.9% 100 ML IVPB SCH ×2 (00:15→12:08)
--- NOTE | 2020-05-12 02:14 | CON ---
DATE OF CONSULTATION: 05/11/2020 REASON FOR CONSULTATION: Urinary retention and urinary tract infection. HISTORY: Mr. Rebollar is a 79-year-old gentleman, whose prior urologic history includes prostate cancer. He has not had a prostatectomy. He is not able to give much history regards to his prostate cancer. He has been dealing with problems in particular metastatic colon cancer and lung cancer. Recently, the patient presented to the hospital with difficulty voiding. CT scan demonstrated bilateral hydroureteronephrosis and a markedly distended bladder. A Castelan catheter was placed and he was discharged home. He returned to the hospital today one day after catheter placement with fever and chills. The catheter is draining well. His blood culture performed on 05/09/2020, demonstrates Pseudomonas aeruginosa. The patient denies prior voiding difficulties. He is not bothered by the catheter at this time. Other significant medical history includes metastatic colon cancer and also small cell carcinoma of the lung. He has been diagnosed with metastases to the brain. He has received radiation therapy. It was though this is emanating from the colon cancer based on the pathology. PAST MEDICAL HISTORY: Metastatic colon cancer, small cell carcinoma of the lung, prostate cancer, COPD, hypertension, and gastroesophageal reflux disease. CHRONIC MEDICATIONS: 1. Xanax. 2. Norvasc. 3. Lipitor. 4. Dulcolax. 5. Tums. 6. Clonidine. 7. Neurontin. 8. Robitussin. ALLERGIES: PENICILLIN. SOCIAL HISTORY: He is and lives with his . He was a 2 to 3 pack-a-day smoker until the age of 54, but quit at that time. He drinks alcohol on a social basis and he is retired. FAMILY HISTORY: The brother did have cancer and as a result of his cancer. The primary site is unknown. REVIEW OF SYSTEMS: Respiratory: No recent changes in breathing. CARDIOVASCULAR: Denies chest pain or palpitations. GASTROINTESTINAL: Denies chronic constipation or diarrhea. His colostomy is working well. NEUROLOGIC: He develops a left arm weakness back in approximately January and that was when he was diagnosed with brain metastases. GENITOURINARY: Please see history of present illness. 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 PHYSICAL EXAMINATION: GENERAL: He is awake, alert, although somewhat confused at this time. VITAL SIGNS: Temperature 98.8, pulse 104, O2 saturation 93% on 3 L nasal cannula, and blood pressure 144/65. CHEST: No wheezing noted. CARDIOVASCULAR: No murmurs auscultated. ABDOMEN: Soft and nontender. No palpable masses. A loop colostomy stoma is viable. EXTREMITIES: No edema noted. : Castelan catheter is in place draining clear yellow urine. Scrotum, no lesions. Testicles palpably normal bilaterally without lesions. LABORATORY DATA: Blood culture , Pseudomonas aeruginosa. Sensitivities pending. IMPRESSION: Mr. Rebollar developed urinary retention requiring Castelan catheterization on 05/10/2020, and has subsequently been diagnosed with Pseudomonas aeruginosa, most likely originating in the urinary tract. His Castelan catheter in place at this time. Imaging does reveal an enlarged prostate and that along with overall deconditioning is most likely the reason for his urinary retention. RECOMMENDATION: 1. Culture specific antibiotic therapy when sensitivities become available. 2. Tamsulosin one p.o. at bedtime. 3. Castelan catheter remain in place for at least one week to allow for bladder decompression before catheter can be removed for voiding trial. Job ID: [id number]
[2020-05-12] MEDS: Hydrocodone-Acetamin 15 ML UDCUP PO PRN (04:01)
[2020-05-12] MEDS: Sodium Chloride 0.9% 1,000 ML IV SCH ×2 (04:01→22:12)
[2020-05-12 04:20] LABS: Band 19 % (5-11); Hemoglobin 9.5 g/dL (14.0-18.0); Lymphocytes 18 % (21-51); MDiff Complete? YES; Mean Corpuscular HGB CONC 31.3 g/dL (32.0-36.0); Mean Corpuscular Hemoglobin 30.7 pg (27.0-31.0); Mean Corpuscular Volume 98.1 fL (78.0-98.0); Mean Platelet Volume 8.1 fL (7.4-10.4); Metamyelocyte 2 % (0-0); Monocytes 5 % (0-10); Neutrophil 55 % (42-75); Platelet Count 103 thou/uL (130-400); Platelet Morphology Comment Appears Decreased; Promyelocytes 1 % (0-0); Red Blood Cell (RBC) Count 3.09 mill/uL (4.70-6.10); White Blood Cell (WBC) Count 2.9 thou/uL (4.8-10.8)
[2020-05-12 04:36] LABS: Anion Gap 14 mmol/L (10-20); BUN (Urea Nitrogen) 18 mg/dL (8.4-25.7); Calc. Creatinine Clearance 94 mL/min (70-130); Calcium 8.2 mg/dL (7.8-10.44); Carbon Dioxide 22 mmol/L (23-31); Chloride 103 mmol/L (98-107); Estimated GFR-MDRD Greater than 90; Glucose 104 mg/dL (83-110); Magnesium 1.9 mg/dL (1.6-2.6); Potassium 3.6 mmol/L (3.5-5.1); Sodium 135 mmol/L (136-145)
[2020-05-12] MEDS: Famotidine 20 MG TAB PO SCH (09:00)
[2020-05-12] MEDS: Gabapentin 300 MG CAP PO SCH ×3 (09:00→22:05)
[2020-05-12] MEDS: ALPRAZolam 0.5 MG TAB PO SCH ×2 (09:00→22:04)
--- NOTE | 2020-05-12 10:00 | PDOC.HOSPP ---
- Subjective Encounter Date: 05/12/20 Encounter Time: 09:50 Subjective: 10 day post chemotx. severe pain in mouth , etc - Objective Vital Signs & Weight: Vital Signs (12 hours) Temp Pulse Resp BP Pulse Ox 05/12/20 08:00 97.5 F L 82 20 179/79 H 93 L 05/12/20 04:00 97.5 F L 86 22 H 146/68 H 96 05/11/20 22:35 98.6 F 102 H 22 H 164/77 H 92 L Weight Weight 144 lb 12.8 oz Most Recent Monitor Data Heart Rate from ECG 101 NIBP 151/73 NIBP BP-Mean 99 Respiration from ECG 21 SpO2 100 I&O: 05/11/20 05/12/20 05/13/20 06:59 06:59 06:59 Intake Total 1519 1835 Output Total 970 1510 Balance 549 325 Result Diagrams: 05/12/20 04:06 05/12/20 04:06 Hospitalist ROS - Medication Medications: Active Medications Generic Name Dose Route Start Last Admin Trade Name Freq PRN Reason Stop Dose Admin Hydrocodone Bitart/Acetaminophen 20 ml 05/11/20 06:53 05/12/20 04:01 Hydrocodone-Acetamin 15 Ml Udcup PO 20 ml Q6H PRN Administration Pain Alprazolam 0.5 mg 05/10/20 21:00 05/11/20 20:14 Alprazolam 0.5 Mg Tab PO 0.5 mg BID CHANCE Administration Al Hydroxide/Mg Hydroxide 60 0 ml 05/10/20 19:31 05/11/20 21:48 ml/ Lidocaine HCl 30 ml/ SSW 10 ml Diphenhydramine HCl 75 mg PRN PRN Administration Mouth Irritation Famotidine 20 mg 05/11/20 21:00 05/11/20 20:14 Famotidine 20 Mg Tab PO 20 mg BID CHANCE Administration Gabapentin 600 mg 05/10/20 15:00 05/11/20 20:14 Gabapentin 300 Mg Cap PO 600 mg TID CHANCE Administration Cefepime HCl 1 gm/ Sodium 100 mls @ 200 mls/hr 05/11/20 00:00 05/12/20 00:15 Chloride IVPB 100 mls 0000,1200 CHANCE Administration Vancomycin HCl 1 gm/ Device 200 mls @ 200 mls/hr 05/10/20 23:00 05/11/20 22:33 IVPB 200 mls 1100,2300 CHANCE Administration Sodium Chloride 1,000 mls @ 75 mls/hr 05/10/20 11:45 05/12/20 04:01 Normal Saline 0.9% IV 1,000 mls .[id number] CHANCE Administration Levofloxacin 750 mg/ Device 150 mls @ 100 mls/hr 05/11/20 10:00 05/12/20 09:06 IVPB 150 mls 1000 CHANCE Administration Pantoprazole Sodium 40 mg 05/11/20 09:00 05/11/20 09:11 Pantoprazole 40 Mg Tab PO 40 mg DAILY CHANCE Administration Ropinirole HCl 0.5 mg 05/10/20 21:00 05/11/20 20:14 Ropinirole Hcl 0.5 Mg Tab PO 0.5 mg HS CHANCE Administration - Exam General Appearance: awake alert ENT - other findings: severe mucositis in mouth with white plaques Neck: no JVD Heart: RRR, no murmur Respiratory - other findings: coarse with rhonchi Gastrointestinal: soft, non-tender, normal bowel sounds Extremities: no edema Hosp A/P (1) Pancytopenia due to chemotherapy Code(s): D61.810 - ANTINEOPLASTIC CHEMOTHERAPY INDUCED PANCYTOPENIA Status: Acute (2) Mucositis due to chemotherapy Code(s): K12.31 - ORAL MUCOSITIS (ULCERATIVE) DUE TO ANTINEOPLASTIC THERAPY Status: Acute (3) Bacteremia due to Gram-negative bacteria Code(s): R78.81 - BACTEREMIA Status: Acute (4) Sepsis Code(s): A41.9 - SEPSIS, UNSPECIFIED ORGANISM Status: Acute Qualifiers: Sepsis type: Pseudomonas (5) Small cell lung cancer Code(s): C34.90 - MALIGNANT NEOPLASM OF UNSP PART OF UNSP BRONCHUS OR LUNG Status: Acute (6) COPD (chronic obstructive pulmonary disease) Status: Chronic (7) Hypertension Code(s): I10 - ESSENTIAL (PRIMARY) HYPERTENSION Status: Chronic Qualifiers: Hypertension type: essential hypertension Qualified Code(s): I10 - Essential (primary) hypertension - Plan cont iv antibx iv diflucan for oral lesions iv morphine for pain
[2020-05-12] MEDS: Aluminum & Magnesium Hydroxide 60 ML, Lidocaine 2% Viscous Solution 30 ML, diphenhydrAM... SSW PRN ×3 (10:05→18:45)
[2020-05-12] MEDS: Morphine 4 MG/ML VIAL SLOW IVP PRN ×4 (10:23→22:11)
[2020-05-12] MEDS: Vancomycin 1 GM in Premix Bag 1 BAG IVPB SCH ×2 (10:50→22:11)
--- NOTE | 2020-05-12 10:56 | PRG ---
DATE OF SERVICE: 05/12/2020 SUBJECTIVE: The patient is having trouble with mucositis, other than that appears to be okay. OBJECTIVE: VITAL SIGNS: His temperature is 97.5, pulse 82, respirations 20, O2 saturations 93% on 3 L, and blood pressure 179/79. HEENT: Unremarkable except for thrush. NECK: No JVD. LUNGS: Coarse breath sounds. CARDIAC: S1 and S2. Regular. ABDOMEN: Colostomy noted. EXTREMITIES: No edema. LABORATORY DATA: White blood cell count 2.9, hematocrit 30, and platelet count 103. Sodium 135, potassium 3.6, BUN 18, creatinine 0.6, and glucose 104. ASSESSMENT: 1. Status post pseudomonal sepsis. 2. Mucositis. PLAN: 1. Would add Diflucan. 2. May need feeding tube for nutritional support. No other recommendations at this time. Job ID: [id number]
[2020-05-12] MEDS: Fluconazole In NaCl,Iso-Osm 200 MG in Premix Bag 1 BAG IVPB SCH (12:49)
[2020-05-12 13:44] VITALS: BMI 19.6
[2020-05-12] MEDS ORDERED: BUPRENORPHINE TOP SCH (16:00)
[2020-05-12] MEDS ORDERED: Tamsulosin HCl 0.4 MG CAP PO SCH (21:00)
[2020-05-12] MEDS: rOPINIRole HCl 0.5 MG TAB PO SCH (22:05)
[2020-05-12 22:46] LABS: Vancomycin, Trough 9.8 ug/mL
--- NOTE | 2020-05-12 22:48 | CON ---
DATE OF CONSULTATION: REASON FOR CONSULT: Colon cancer. HISTORY OF PRESENT ILLNESS: Mr. Rebollar is a pleasant 79-year-old gentleman with stage IV adenocarcinoma of the colon. He also has limited stage small cell lung cancer in remission. He has been receiving FOLFIRI and Avastin for his colon cancer and has been tolerating it poorly over the last several weeks. He has been having significant mucositis, diarrhea, weakness and pain. He has seen Dr. Grier for pain control and also is taking Lortab. His last cycle of chemotherapy was on April 30. This was after a four week break. He had IV fluids on May 06 in our clinic. On the , he presented to the emergency room with abdominal pain and was diagnosed with urinary retention. A Castelan catheter was placed. He returned the next day with altered mental status and was admitted for Pseudomonas sepsis. He has been on antibiotics and IV fluids during the stay. He has significant mouth pain and is unable to swallow. He was unable to have a barium swallow study due to pain. The patient was seen at bedside with his qoaegmfr-ko-dte present. He complains of mucositis and just generalized pain. He hurts whenever I touch him. He is currently on his pain patch. PAST MEDICAL HISTORY: 1. Stage IV adenocarcinoma of the colon. 2. Limited stage small cell lung cancer in remission since . 3. Brain metastasis from colon cancer in January 2020. 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 5. Hypertension. 6. Chronic obstructive pulmonary disease. 7. Gastroesophageal reflux disease. 8. Anxiety. PAST SURGICAL HISTORY: Hemicolectomy with ostomy placement. ALLERGIES: TO PENICILLIN. CURRENT MEDICATIONS: 1. Hydrocodone liquid. 2. Magic mouthwash. 3. Xanax. 4. Cefepime. 5. Fluconazole. 6. Neurontin. 7. Levofloxacin. 8. Morphine. 9. Protonix. 10. Requip. 11. Flomax. 12. Vancomycin. FAMILY HISTORY: Noncontributory. SOCIAL HISTORY: , has 2 children. Lives with his . REVIEW OF SYSTEMS: A 10-point review of systems is negative except for noted in HPI. PHYSICAL EXAMINATION: VITAL SIGNS: Temperature is 98.1, pulse is 86, respiratory rate 16, BP is 145/68, 93% on 3 L. GENERAL: This is a chronically ill-appearing male, in mild distress. HEENT: Normocephalic, atraumatic. Pupils are equal and reactive to light. He has oral lesions and thrush. NECK: Supple. CV: Regular rate and rhythm. LUNGS: Clear. ABDOMEN: Soft and nontender. He has an ostomy in place. SKIN: No rash. HEMATOLOGICAL: He has scattered bruising in his upper extremities. NEUROLOGICAL: Nonfocal. PERTINENT LABORATORY DATA AND X-RAYS: Current WBCs are 2.9, hemoglobin 9.5, hematocrit 30.3, platelet count is 103,000, 15% neutrophils, 19% bands, and 18% lymphocytes. PT is 11.8, INR 0.1, and PTT is 28.1. Sodium 135, potassium 3.6, chloride 103, CO2 is 22, BUN is 18, creatinine 0.64, lactic acid is 4, calcium 8.2, bilirubin 0.5, AST is 17, ALT is 21, alkaline phosphatase is 117. Troponin is 0.046. Serum total protein is 5.8, albumin 3, globulin 2.8. COVID PCR negative. Blood culture x2 positive for Pseudomonas aeruginosa. Flu negative. ASSESSMENT: 1. Pseudomonas sepsis. 2. Stage IV colon cancer. 3. Mucositis. DISCUSSION: The patient continues on antibiotic therapy with IV fluids. His pain is better controlled as he got his pain patch today. He does have p.r.n. morphine. He is extremely weak and may consider PPN. We did briefly discuss a feeding tube if he continues to be unable to swallow. However, I would be hesitant to place one as he has poor prognosis. The patient remains a full code at this time. I have asked Dr. Singh to visit with the patient and the family to discuss goals of care and code status and possible hospice. We will follow along with the hospital course. Job ID: [id number]
[2020-05-12] MEDS ORDERED: diphenhydrAMINE 25 MG in Sodium Chloride 0.9% 50 ML IVPB SCH (23:00)
[2020-05-13] MEDS: Morphine 4 MG/ML VIAL SLOW IVP PRN ×6 (01:33→16:15)
[2020-05-13] MEDS: Cefepime 1 GM in Sodium Chloride 0.9% 100 ML IVPB SCH ×2 (01:34→11:17)
[2020-05-13 04:59] LABS: Anion Gap 15 mmol/L (10-20); BUN (Urea Nitrogen) 13 mg/dL (8.4-25.7); Calc. Creatinine Clearance 120 mL/min (70-130); Calcium 8.5 mg/dL (7.8-10.44); Carbon Dioxide 20 mmol/L (23-31); Chloride 103 mmol/L (98-107); Estimated GFR-MDRD Greater than 90; Glucose 89 mg/dL (83-110); Sodium 135 mmol/L (136-145)
[2020-05-13 05:01] LABS: Potassium 2.9 mmol/L (3.5-5.1)
[2020-05-13 05:02] LABS: Band 22 % (5-11); Hemoglobin 9.5 g/dL (14.0-18.0); Hypochromia SLIGHT = 6-15 cells (100X) (0-5/hpf); Lymphocytes 18 % (21-51); MDiff Complete? YES; Mean Corpuscular HGB CONC 31.4 g/dL (32.0-36.0); Mean Corpuscular Hemoglobin 30.5 pg (27.0-31.0); Mean Corpuscular Volume 97.4 fL (78.0-98.0); Mean Platelet Volume 8.9 fL (7.4-10.4); Monocytes 4 % (0-10); Neutrophil 56 % (42-75); Platelet Count 126 thou/uL (130-400); Platelet Morphology Comment Appears Adequate; RBC Distribution Width 15.2 % (11.5-14.5); White Blood Cell (WBC) Count 3.6 thou/uL (4.8-10.8)
[2020-05-13] MEDS: Vancomycin 1 GM in Premix Bag 1 BAG IVPB SCH ×2 (05:28→15:35)
[2020-05-13] MEDS ORDERED: NS 0.9% w/ 40 MEQ KCL 1,000 ML IV SCH (05:30)
--- NOTE | 2020-05-13 08:10 | PDOC.MOPN ---
Interval History: he still can't swallow, weak, and mouth pain. he wants to go home. - Vital Signs Vital Signs: Vital Signs (12 hours) Temp Pulse Resp BP Pulse Ox 05/13/20 07:10 98.3 F 71 16 174/84 H 96 05/13/20 03:06 97.9 F 87 18 149/70 H 98 05/13/20 01:44 16 95 05/12/20 20:23 98.3 F 101 H 18 147/68 H 98 Weight Admit Weight 141 lb 1.6 oz Weight 144 lb 10.677 oz Most Recent Monitor Data Heart Rate from ECG 101 NIBP 151/73 NIBP BP-Mean 99 Respiration from ECG 21 SpO2 100 - Physical Exam General: Mild distress HEENT: Atraumatic, Other (mucositis noted, thick secretions) Lungs: Other (poor inspiratory effort) Abdomen: Normal bowel sounds, Soft Extremities: Other (trace edema throughout) Psych/Mental Status: Other (slow mentally) - Labs Result Diagrams: 05/13/20 03:53 05/13/20 03:53 Lab results: Laboratory Results - last 24 hr 05/13/20 03:53: WBC 3.6 L, RBC 3.10 L, Hgb 9.5 L, Hct 30.2 L, MCV 97.4, MCH 30.5, MCHC 31.4 L, RDW 15.2 H, Plt Count 126 L, MPV 8.9, Neutrophils % (Manual) 56, Band Neuts % (Manual) 22 H, Lymphocytes % (Manual) 18 L, Monocytes % (Manual) 4, Hypochromia SLIGHT = 6-15 cells, Plt Morphology Comment Appears Adequate 05/13/20 03:53: Sodium 135 L, Potassium 2.9 L*, Chloride 103, Carbon Dioxide 20 L, Anion Gap 15, BUN 13, Creatinine 0.48 L, Estimated GFR (MDRD) Greater than 90, Glucose 89, Calcium 8.5 05/12/20 22:14: Vancomycin Trough 9.8 A/P - Problem (1) Colon cancer metastasized to liver Current Visit: Yes Code(s): C18.9 - MALIGNANT NEOPLASM OF COLON, UNSPECIFIED; C78.7 - SECONDARY MALIG NEOPLASM OF LIVER AND INTRAHEPATIC BILE DUCT Status: Acute (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 Current Visit: Yes Code(s): C18.9 - MALIGNANT NEOPLASM OF COLON, UNSPECIFIED; C77.2 - SECONDARY AND UNSP MALIGNANT NEOPLASM OF INTRA-ABD NODES Status: Acute (3) Mass of upper lobe of right lung Current Visit: No Code(s): R91.8 - OTHER NONSPECIFIC ABNORMAL FINDING OF LUNG FIELD Status: Acute (4) SOB (shortness of breath) Current Visit: No Code(s): R06.02 - SHORTNESS OF BREATH Status: Acute (5) Symptomatic anemia Current Visit: No Code(s): D64.9 - ANEMIA, UNSPECIFIED Status: Acute (6) COPD (chronic obstructive pulmonary disease) Current Visit: No Status: Chronic (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 stop chemo 2. continue anti-virals and anti-fungals 3. aggressive oral care 4. home with hospice
[2020-05-13] MEDS: ALPRAZolam 0.5 MG TAB PO SCH (09:25)
[2020-05-13] MEDS: Gabapentin 300 MG CAP PO SCH ×2 (09:26→14:22)
--- NOTE | 2020-05-13 10:54 | PQF ---
CLINICAL DOCUMENTATION CLARIFICATION FORM: Dear Dr. Gume Fletcher Date / Time: 05/13/20 1000 Please exercise your independent, professional judgment in responding to the clarification form. Clinical indicators are provided on the bottom of this form for your review. Please check appropriate box(es): [ ] Sepsis due to: Urinary Tract Infection Due to: [ ] Indwelling Castelan Catheter [ ] Sepsis not due to : Urinary Tract Infection Due to: [ ] Indwelling Castelan Catheter [x ] Severe sepsis with associated acute organ dysfunction: [ x ] Acute Respiratory Failure [ x] Acute Kidney injury w/o ATN [ ] Acute Kidney Injury w ATN [x ] Encephalopathy (metabolic) (septic) [ ] Disseminated Intravascular Coagulopathy (DIC) [ ] Hepatic Failure [ ] Additional/Other: please specify: [ ] Septic Shock [ ] Localized infection without sepsis [ ] SIRS due to non-infectious process (please specify etiology) [ ] with organ dysfunction [ ] without organ dysfunction [ ] Other diagnosis [ ] Unable to determine In addition, please specify: Present on Admission (POA): [ x ] Yes [ ] No [ ] Unable to determine For continuity of documentation, please document condition throughout progress notes and discharge summary. Thank You. 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 Pt has leg bag attached to Castelan catheter. Pt was seen yesterday for urinary retention presumed secondary to outlet obstruction caused by enlarged prostate with history of prostate cancer, Patient was discharged with Castelan catheter and leg bag for outpatient follow up. Patient returns today endorsing increased weakness and fatigue. (05/10/20) H&P / Adrianzeer : Presented to the hospital yesterday w urinary retention, Castelan placed, discharged after cultures were obtained. He returned today with c/o fever and shaking. His cultures are now showing growth of Pseudomonas aeruginosa in the blood. Urine cultures are not showing any growth so far. A/P : 1). Severe sepsis- the source of his infection is likely his urine (05/10/20) Consult / Florin: Assessment: 1). Urosepsis Pn / Olejeme A/P : 3). UTI, likely cause of bacteremia. 7). Sepsis, pseudomonas type. (05/11/20) Urine culture: source Castelan Catheter> No Growth at 48 hours. Labs 05/10 lactic acid. 4.4. >. 4.0 05/11 Bands 30 > 40 05/12 Bands 19 10 Bands 22 RISK FACTORS / RESULTS AND LOCATION IN MR Advanced age (79), severe sepsis, Pseudomonas bacteremia, primary colon and prostate cancer ( H&P / Alice) 05/10/20 TREATMENTS / RESULTS AND LOCATION IN MR Urology consult (Melba/ 05/12) Urine culture (05/10) Daily CBC (05/10 present) Maxipime IV (05/10 present) Levaquin IV (05/11 present) Thank You! CDS Signature: Rhiannon Gutierrez RN Phone #: Date: 05/13/20 This is a permanent part of the Medical Record [facility]
[2020-05-13] MEDS ORDERED: Hydrocodone-Acetamin 15 ML UDCUP PO PRN (11:00)
[2020-05-13] MEDS: Fluconazole In NaCl,Iso-Osm 200 MG in Premix Bag 1 BAG IVPB SCH (11:17)
--- NOTE | 2020-05-13 11:33 | PDOC.HOSPP ---
- Subjective Encounter Date: 05/13/20 Encounter Time: 11:24 Subjective: mouth somewhat less painfull - Objective Vital Signs & Weight: Vital Signs (12 hours) Temp Pulse Resp BP Pulse Ox 05/13/20 07:10 98.3 F 71 16 174/84 H 96 05/13/20 03:06 97.9 F 87 18 149/70 H 98 05/13/20 01:44 16 95 Weight Admit Weight 141 lb 1.6 oz Weight 144 lb 10.677 oz Most Recent Monitor Data Heart Rate from ECG 101 NIBP 151/73 NIBP BP-Mean 99 Respiration from ECG 21 SpO2 100 I&O: 05/12/20 05/13/20 05/14/20 06:59 06:59 06:59 Intake Total 1835 1991 Output Total 1510 1500 Balance 325 492 Result Diagrams: 05/13/20 03:53 05/13/20 03:53 Hospitalist ROS - Medication Medications: Active Medications Generic Name Dose Route Start Last Admin Trade Name Freq PRN Reason Stop Dose Admin Hydrocodone Bitart/Acetaminophen 20 ml 05/11/20 06:53 05/12/20 04:01 Hydrocodone-Acetamin 15 Ml Udcup PO 20 ml Q6H PRN Administration Severe Pain (7-10) Albuterol Sulfate 2 puff 05/11/20 09:55 05/13/20 01:44 Proventil Inhaler 6.7 G (200 Inhalations) INH 2 puff Q6H PRN Administration SOB Alprazolam 0.5 mg 05/10/20 21:00 05/13/20 09:25 Alprazolam 0.5 Mg Tab PO Not Given BID CHANCE Al Hydroxide/Mg Hydroxide 60 0 ml 05/10/20 19:31 05/12/20 18:45 ml/ Lidocaine HCl 30 ml/ SSW 10 ml Diphenhydramine HCl 75 mg PRN PRN Administration Mouth Irritation Gabapentin 600 mg 05/10/20 15:00 05/13/20 09:26 Gabapentin 300 Mg Cap PO Not Given TID CHANCE Cefepime HCl 1 gm/ Sodium 100 mls @ 200 mls/hr 05/11/20 00:00 05/13/20 11:17 Chloride IVPB 100 mls 0000,1200 CHANCE Administration Levofloxacin 750 mg/ Device 150 mls @ 100 mls/hr 05/11/20 10:00 05/13/20 09:36 IVPB 150 mls 1000 CHANCE Administration Fluconazole/Sodium Chloride 100 mls @ 100 mls/hr 05/12/20 12:00 05/13/20 11:17 200 mg/ Device IVPB 05/16/20 12:59 100 mls Q24HR CHANCE Administration Vancomycin HCl 1 gm/ Device 200 mls @ 200 mls/hr 05/13/20 06:00 05/13/20 05:28 IVPB 200 mls Q8HR CHANCE Administration Potassium Chloride/Sodium Chloride 1,000 mls @ 75 mls/hr 05/13/20 05:30 05/13/20 08:22 Ns 0.9% W/ 40 Meq Kcl IV 05/13/20 18:49 1,000 mls .[id number] CHANCE Administration Morphine Sulfate 4 mg 05/12/20 10:05 05/13/20 10:41 Morphine 4 Mg/Ml Vial SLOW IVP 4 mg Q3H PRN Administration Pain (Buprenorphine 1 1 patch 05/12/20 16:00 05/12/20 11:57 Each Patch.Tdwk) TOP 1 patch Q7D CHANCE Administration Pantoprazole Sodium 40 mg 05/11/20 09:00 05/13/20 09:26 Pantoprazole 40 Mg Tab PO Not Given DAILY CHANCE Ropinirole HCl 0.5 mg 05/10/20 21:00 05/12/20 22:05 Ropinirole Hcl 0.5 Mg Tab PO Not Given HS CHANCE Tamsulosin HCl 0.4 mg 05/12/20 21:00 05/12/20 22:05 Tamsulosin Hcl 0.4 Mg Cap PO Not Given HS CHANCE - Exam General Appearance: awake alert ENT - other findings: oral mucositis Neck: no JVD Heart: RRR, no murmur Respiratory - other findings: coare BS with rhonchi Gastrointestinal: soft, non-tender, normal bowel sounds Extremities: 1+ LE edema Hosp A/P (1) Pancytopenia due to chemotherapy Code(s): D61.810 - ANTINEOPLASTIC CHEMOTHERAPY INDUCED PANCYTOPENIA Status: Acute (2) Mucositis due to chemotherapy Code(s): K12.31 - ORAL MUCOSITIS (ULCERATIVE) DUE TO ANTINEOPLASTIC THERAPY Status: Acute (3) Bacteremia due to Gram-negative bacteria Code(s): R78.81 - BACTEREMIA Status: Acute (4) Sepsis Code(s): A41.9 - SEPSIS, UNSPECIFIED ORGANISM Status: Acute Qualifiers: Sepsis type: Pseudomonas Severe sepsis acute organ dysfunction type: acute respiratory failure Acute respiratory failure type: with hypoxia Severe sepsis shock status: without septic shock (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
--- NOTE | 2020-05-13 11:38 | PDOC.FMACP ---
Advance Care Planning - Problem (1) Pancytopenia due to chemotherapy Status: Acute Code(s): D61.810 - ANTINEOPLASTIC CHEMOTHERAPY INDUCED PANCYTOPENIA (2) Mucositis due to chemotherapy Status: Acute Code(s): K12.31 - ORAL MUCOSITIS (ULCERATIVE) DUE TO ANTINEOPLASTIC THERAPY (3) Bacteremia due to Gram-negative bacteria Status: Acute Code(s): R78.81 - BACTEREMIA (4) Sepsis Status: Acute Code(s): A41.9 - SEPSIS, UNSPECIFIED ORGANISM Qualifiers: Sepsis type: Pseudomonas Severe sepsis acute organ dysfunction type: acute respiratory failure Acute respiratory failure type: with hypoxia Severe sepsis shock status: without septic shock (5) Small cell lung cancer Status: Chronic Code(s): C34.90 - MALIGNANT NEOPLASM OF UNSP PART OF UNSP BRONCHUS OR LUNG (6) COPD (chronic obstructive pulmonary disease) Status: Chronic Qualifiers: COPD type: emphysema Emphysema type: unspecified Qualified Code(s): J43.9 - Emphysema, unspecified (7) Hypertension Status: Chronic Code(s): I10 - ESSENTIAL (PRIMARY) HYPERTENSION Qualifiers: Hypertension type: essential hypertension Qualified Code(s): I10 - Essential (primary) hypertension - Note Participants: family, surrogate decision-maker, palliative care Summary: Advanced Care Planning was discussed. The diagnosis, prognosis and goals of care were discussed. Appropriate forms and documentation to accomplish the goals of care were discussed. All questions were answered. The Palliative Care Team will be engaged to assist with completion of any outstanding forms that are needed. DNAR status, hospice in consult Time Spent (mins): 25
--- NOTE | 2020-05-13 11:56 | PDOC.EVN ---
Event Note - Event Note Event Note: cont iv MS Q#H for pain. Lorazzepam 0.5 mg iv for sedation-unable to take po meds
[2020-05-13] MEDS ORDERED: Potassium Phosphate 15 MMOL in Sodium Chloride 0.9% 250 ML 250 ML IVPB SCH (12:15)
[2020-05-13] MEDS ORDERED: Scopolamine 1.5 mg/72 hour Patch TOP SCH (13:00)
[2020-05-13 16:56] VITALS: BP 172/80; TEMP 97.3
--- NOTE | 2020-05-13 17:02 | DIS ---
DATE OF ADMISSION: 05/10/2020 DATE OF DISCHARGE: 05/13/2020 PRIMARY CARE PROVIDER: Dr. Alanis Gill. DISPOSITION: Discharged to home hospice. FINAL DIAGNOSES: Bacteremia with Pseudomonas aeruginosa and coag-negative Staphylococcus, sepsis syndrome, acute respiratory failure with hypoxia, oral mucositis, colon cancer metastasized to liver, pancytopenia due to chemotherapy, urinary retention, hypertension, chronic obstructive pulmonary disease, small cell lung cancer. DISCHARGE MEDICINES: None. At the time of discharge, the patient was DNAR. Diet, no restrictions. Medications, none. All will be per hospice at home. During his hospital stay, he was seen by Dr. Sohan Catherine of Pulmonology, Dr. Art Reilly of Genitourinary, Dr. Tessy Singh of Oncology. PROCEDURES DONE: None. DESCRIPTION OF PROCEDURE: The patient was admitted to [facility] through the emergency room with fever. He was found to be leukopenic. Lactic acid was elevated at 4.4. He was considered to have sepsis at that time. He was started on broad-spectrum antibiotics with vancomycin and cefepime. The patient had a severe mucositis in his mouth. He was eventually started on IV Diflucan for same. He was given morphine for pain, given IV fluids for fluid maintenance, given potassium supplementation. The patient remained afebrile after admission. He required O2 per nasal cannula to keep his sats above 90. He was seen by Palliative Care on 05/12. Decision was made in cooperation with Palliative Care and the family today that the patient would become DNAR and would go on hospice. He is currently being discharged to Hospice. PERTINENT LABORATORY ON ADMISSION: White count 3.3, hemoglobin 10.1, platelet count 187,000. Chemistries; sodium 135, potassium 3.5, chloride 100, CO2 of 20, BUN 17, creatinine 0.77. Initial lactic acid was 4.4, which dropped to 4. He did have elevated enzymes. As I said before, the patient is discharged to outpatient Hospice with [facility]. Prognosis is poor. Job ID: [id number]
[2020-05-13] MEDS ORDERED: Sodium Chloride 0.9% 1,000 ML IV SCH (19:00)
[2020-05-13] MEDS ORDERED: Cefepime 2 GM in Sodium Chloride 0.9% 100 ML IVPB SCH (20:00)
[2020-05-13] MEDS ORDERED: Lorazepam 2 MG/ML VIAL SLOW IVP SCH (21:00)
== END 2020-05-13 18:25 | disposition hospice, home (50) | DRG 871 ==
LOC: ERS 08:32 → CCU 14:40 → 2NO 05-11 15:39
PROVIDERS: ADMIT Internal Medicine; ATTEND Internal Medicine
PROC: 0T9B70Z Drainage of Bladder with Drainage Device, Via Natural or Artificial Opening (ICD-10-PCS; principal; 2020-05-10)
DX: A41.52 Sepsis due to Pseudomonas (principal); J96.01 Acute respiratory failure with hypoxia; D61.810 Antineoplastic chemotherapy induced pancytopenia; Z20.828 Contact with and (suspected) exposure to other viral communicable diseases; Z51.5 Encounter for palliative care; Z66 Do not resuscitate; G93.41 Metabolic encephalopathy; E87.2 Acidosis; E87.1 Hypo-osmolality and hyponatremia; B02.23 Postherpetic polyneuropathy; N12 Tubulo-interstitial nephritis, not specified as acute or chronic; C18.9 Malignant neoplasm of colon, unspecified; C78.7 Secondary malignant neoplasm of liver and intrahepatic bile duct; C77.2 Secondary and unspecified malignant neoplasm of intra-abdominal lymph nodes; C78.01 Secondary malignant neoplasm of right lung; N17.9 Acute kidney failure, unspecified; R65.20 Severe sepsis without septic shock; I10 Essential (primary) hypertension; G25.81 Restless legs syndrome; R33.9 Retention of urine, unspecified; J44.9 Chronic obstructive pulmonary disease, unspecified; K21.9 Gastro-esophageal reflux disease without esophagitis; T45.1X5A Adverse effect of antineoplastic and immunosuppressive drugs, initial encounter; K12.30 Oral mucositis (ulcerative), unspecified; F41.9 Anxiety disorder, unspecified; Z90.49 Acquired absence of other specified parts of digestive tract; Z93.3 Colostomy status; Z87.891 Personal history of nicotine dependence; Z79.899 Other long term (current) drug therapy; Z88.0 Allergy status to penicillin; Z85.46 Personal history of malignant neoplasm of prostate
CPT/HCPCS: 36415; 51702; 71045; 71046; 74177; 80048; 80053; 80202; 81003; 81015; 82330; 82553; 82803; 82805; 83605; 83735; 83880; 84484; 85025; 87040; 87077; 87086; 87149; 87186; 87635; 87804; 94640; 96361; 96365; 96366; 96367; 96368; 96375; 96376; 99292; J0692; J0696; J1200; J1450; J1642; J1956; J2270; J3370; J3480; J3490; J7030; J7050; Q0163; Q9967; U0003